=== PATIENT | female | born 1965 | race Caucasian/White ===

== ENCOUNTER 2021-03-26 01:36 | Observation (INO) | payer BC ==
[2021-03-26 02:13] LABS: #Basophils 0.1 thou/uL (0.0-0.2); #Eosinphils 0.3 thou/uL (0.0-0.7); #Monocytes 0.8 thou/uL (0.11-0.59); #Neutrophils 4.1 thou/uL (1.40-6.50); %Basophils 0.7 % (0.0-1.0); %Eosinophils 2.9 % (0.0-10.0); %Lymphocytes 43.4 % (21.0-51.0); %Monocytes 8.8 % (0.0-10.0); %Neutrophils 44.2 % (42.0-75.0); Hemoglobin 13.5 g/dL (12.0-16.0); Mean Corpuscular HGB CONC 34.9 g/dL (32.0-36.0); Mean Corpuscular Hemoglobin 30.7 pg (27.0-31.0); Mean Corpuscular Volume 87.9 fL (78.0-98.0); Mean Platelet Volume 8.1 fL (7.4-10.4); Platelet Count 324 thou/uL (130-400); Red Blood Cell (RBC) Count 4.41 mill/uL (4.20-5.40); White Blood Cell (WBC) Count 9.2 thou/uL (4.8-10.8)
[2021-03-26] MEDS ORDERED: Nitroglycerin 0.4 MG TAB 1 EACH ONE ×2 (02:23→02:35)
[2021-03-26 02:36] LABS: ALT (SGPT) 34 U/L (8-55); AST (SGOT) 34 U/L (5-34); Albumin 4.4 g/dL (3.5-5.0); Alkaline Phosphatase 94 U/L (40-110); Anion Gap 14 mmol/L (10-20); BUN (Urea Nitrogen) 14 mg/dL (9.8-20.1); Bilirubin, Total 0.3 mg/dL (0.2-1.2); Calc. Creatinine Clearance 0 mL/min (70-130); Calcium 9.8 mg/dL (7.8-10.44); Carbon Dioxide 23 mmol/L (22-29); Chloride 107 mmol/L (98-107); Globulin 3.5 g/dL (2.4-3.5); Glucose 86 mg/dL (70-105); Potassium 3.5 mmol/L (3.5-5.1); Protein, Total 7.9 g/dL (6.0-8.3); Sodium 140 mmol/L (136-145)
[2021-03-26] MEDS ORDERED: Nitroglycerin 2% Ointment 1 INCH/1 GM Packet ONE (03:38)
[2021-03-26] MEDS ORDERED: Fentanyl 100 MCG/2 ML VIAL ONE (03:38)
[2021-03-26] MEDS ORDERED: Acetaminophen 650 MG Suppository PR PRN (03:58)
[2021-03-26] MEDS ORDERED: Ondansetron ODT 4 MG TAB PO PRN (03:58)
[2021-03-26] MEDS ORDERED: Acetaminophen 325 MG TAB PO PRN (03:58)
[2021-03-26] MEDS ORDERED: Ondansetron PF 4 MG/2 ML Vial IVP PRN (03:58)
[2021-03-26] MEDS ORDERED: Enoxaparin Sodium 100 MG/ML SYRINGE SC SCH ×2 (04:15→09:00)
[2021-03-26] MEDS ORDERED: Dextrose 50% Abboject 50 ML SYRINGE SLOW IVP PRN (05:34)
[2021-03-26] MEDS ORDERED: HumaLOG 300 UNITS/3 ML VIAL SC PRN ×2 (05:34)
[2021-03-26] MEDS ORDERED: Dextrose 5% in Water 1,000 ML IV PRN (05:34)
[2021-03-26] MEDS ORDERED: Nitroglycerin 0.4 MG TAB (25 Tab Bottle) SL PRN (05:39)
[2021-03-26 05:47] LABS: Troponin I Less than 0.010 ng/mL (< 0.028)
[2021-03-26 07:46] VITALS: BMI 40.7
[2021-03-26 08:21] LABS: Troponin I Less than 0.010 ng/mL (< 0.028)
[2021-03-26] MEDS ORDERED: Aspirin Chewable 81 MG TAB PO SCH (09:00)
[2021-03-26] MEDS: Aspirin 81 mg Enteric Coated Tablet PO SCH (10:29)
[2021-03-26] MEDS: Clopidogrel Bisulfate 75 MG TAB PO SCH (10:30)
[2021-03-26] MEDS: Nitroglycerin 2% Ointment 1 INCH/1 GM Packet TOP SCH ×2 (12:13→21:26)
[2021-03-26 14:44] LABS: SARS-CoV-2 PCR by NAA Not Detected (NotDetected)
[2021-03-26] MEDS: Gabapentin 400 MG CAP PO SCH ×2 (14:46→21:26)
[2021-03-26] MEDS: Fentanyl 100 MCG/2 ML VIAL SLOW IVP PRN ×2 (16:34→21:27)
[2021-03-26] MEDS: Atorvastatin Calcium 40 MG TAB PO SCH ×2 (21:26→21:30)
[2021-03-26] MEDS: Escitalopram Oxalate 20 mg Tablet PO SCH (21:26)
[2021-03-26] MEDS: Furosemide 20 MG TAB PO SCH (21:26)
[2021-03-27 04:53] LABS: #Basophils 0.1 thou/uL (0.0-0.2); #Eosinphils 0.3 thou/uL (0.0-0.7); #Lymphocytes 3.1 thou/uL (1.20-3.40); #Monocytes 0.5 thou/uL (0.11-0.59); #Neutrophils 2.3 thou/uL (1.40-6.50); %Basophils 1.3 % (0.0-1.0); %Eosinophils 5.1 % (0.0-10.0); %Lymphocytes 49.6 % (21.0-51.0); %Monocytes 8.2 % (0.0-10.0); %Neutrophils 35.8 % (42.0-75.0); Hemoglobin 12.7 g/dL (12.0-16.0); Mean Corpuscular HGB CONC 32.4 g/dL (32.0-36.0); Mean Corpuscular Hemoglobin 29.4 pg (27.0-31.0); Mean Corpuscular Volume 90.6 fL (78.0-98.0); Mean Platelet Volume 8.3 fL (7.4-10.4); Platelet Count 314 thou/uL (130-400); RBC Distribution Width 12.2 % (11.5-14.5); Red Blood Cell (RBC) Count 4.31 mill/uL (4.20-5.40); White Blood Cell (WBC) Count 6.3 thou/uL (4.8-10.8)
[2021-03-27 05:15] LABS: Anion Gap 15 mmol/L (10-20); BUN (Urea Nitrogen) 16 mg/dL (9.8-20.1); Calc. Creatinine Clearance 126 mL/min (70-130); Calcium 9.5 mg/dL (7.8-10.44); Carbon Dioxide 21 mmol/L (22-29); Chloride 107 mmol/L (98-107); Glucose 272 mg/dL (70-105); Potassium 4.5 mmol/L (3.5-5.1); Sodium 138 mmol/L (136-145)
[2021-03-27] MEDS: Nitroglycerin 2% Ointment 1 INCH/1 GM Packet TOP SCH ×3 (05:34→21:33)
[2021-03-27] MEDS ORDERED: ADENOSINE 60 MG/20 ML VIAL ONE (09:02)
[2021-03-27] MEDS: Clopidogrel Bisulfate 75 MG TAB PO SCH (11:58)
[2021-03-27] MEDS: Furosemide 20 MG TAB PO SCH ×2 (11:58→21:33)
[2021-03-27] MEDS: Gabapentin 400 MG CAP PO SCH ×3 (11:58→21:32)
[2021-03-27] MEDS: Aspirin 81 mg Enteric Coated Tablet PO SCH (11:58)
[2021-03-27] MEDS: Carvedilol 3.125 MG TAB PO SCH (11:58)
[2021-03-27] MEDS: Fentanyl 100 MCG/2 ML VIAL SLOW IVP PRN ×2 (19:03→21:34)
[2021-03-27] MEDS: Escitalopram Oxalate 20 mg Tablet PO SCH (21:33)
[2021-03-27] MEDS: Atorvastatin Calcium 40 MG TAB PO SCH (21:44)
[2021-03-28] MEDS: Nitroglycerin 2% Ointment 1 INCH/1 GM Packet TOP SCH ×2 (03:03→11:39)
[2021-03-28 04:45] LABS: #Basophils 0.1 thou/uL (0.0-0.2); #Eosinphils 0.2 thou/uL (0.0-0.7); #Lymphocytes 3.2 thou/uL (1.20-3.40); #Monocytes 0.7 thou/uL (0.11-0.59); #Neutrophils 2.7 thou/uL (1.40-6.50); %Eosinophils 3.6 % (0.0-10.0); %Lymphocytes 46.2 % (21.0-51.0); %Monocytes 9.6 % (0.0-10.0); %Neutrophils 39.6 % (42.0-75.0); Mean Corpuscular HGB CONC 33.4 g/dL (32.0-36.0); Mean Corpuscular Hemoglobin 29.6 pg (27.0-31.0); Mean Corpuscular Volume 88.4 fL (78.0-98.0); Mean Platelet Volume 8.2 fL (7.4-10.4); Platelet Count 311 thou/uL (130-400); Red Blood Cell (RBC) Count 4.07 mill/uL (4.20-5.40); White Blood Cell (WBC) Count 6.9 thou/uL (4.8-10.8)
[2021-03-28 05:05] LABS: Anion Gap 14 mmol/L (10-20); BUN (Urea Nitrogen) 16 mg/dL (9.8-20.1); Calc. Creatinine Clearance 122 mL/min (70-130); Calcium 9.7 mg/dL (7.8-10.44); Carbon Dioxide 26 mmol/L (22-29); Chloride 102 mmol/L (98-107); Glucose 240 mg/dL (70-105); Potassium 3.8 mmol/L (3.5-5.1); Sodium 138 mmol/L (136-145)
[2021-03-28] MEDS ORDERED: Ezetimibe 10 MG TAB PO SCH (09:00)
[2021-03-28] MEDS: Furosemide 20 MG TAB PO SCH (09:24)
[2021-03-28] MEDS: Aspirin 81 mg Enteric Coated Tablet PO SCH (09:24)
[2021-03-28] MEDS: Carvedilol 3.125 MG TAB PO SCH (09:24)
[2021-03-28] MEDS: Gabapentin 400 MG CAP PO SCH ×2 (09:24→15:48)
[2021-03-28] MEDS: Clopidogrel Bisulfate 75 MG TAB PO SCH (10:01)
[2021-03-28] MEDS ORDERED: HumaLOG 300 UNITS/3 ML VIAL SC SCH (12:00)
[2021-03-28 15:33] VITALS: BP 145/75; TEMP 97.8
[2021-03-28] MEDS ORDERED: Atorvastatin Calcium 40 MG TAB PO SCH (21:00)
[2021-03-28] MEDS ORDERED: Lantus 1000 UNITS/10 ML VIAL SC SCH (21:00)
[2021-03-29] MEDS ORDERED: Lantus 1000 UNITS/10 ML VIAL SC SCH (09:00)
== END 2021-03-28 15:58 | disposition home or self-care (01) ==
LOC: ERS 01:36 → 2NO 03:30 → INTOOBSV 03:30
PROVIDERS: ADMIT Student in an Organized Health Care Education/Training Program; ATTEND Hospitalist
DX: R07.89 Other chest pain (principal); I25.10 Atherosclerotic heart disease of native coronary artery without angina pectoris; E11.9 Type 2 diabetes mellitus without complications; R06.02 Shortness of breath; I25.2 Old myocardial infarction; F15.11 Other stimulant abuse, in remission; I51.7 Cardiomegaly; M65.811 Other synovitis and tenosynovitis, right shoulder; E66.01 Morbid (severe) obesity due to excess calories; Z68.41 Body mass index [BMI] 40.0-44.9, adult; Z86.73 Personal history of transient ischemic attack (TIA), and cerebral infarction without residual deficits; Z87.891 Personal history of nicotine dependence; Z79.4 Long term (current) use of insulin; Z79.84 Long term (current) use of oral hypoglycemic drugs; Z79.82 Long term (current) use of aspirin; Z79.899 Other long term (current) drug therapy; Z88.0 Allergy status to penicillin; Z88.1 Allergy status to other antibiotic agents; Z88.2 Allergy status to sulfonamides; Z88.5 Allergy status to narcotic agent; Z88.8 Allergy status to other drugs, medicaments and biological substances; Z91.040 Latex allergy status; Z91.041 Radiographic dye allergy status; Z95.1 Presence of aortocoronary bypass graft; Z95.5 Presence of coronary angioplasty implant and graft; Z20.822 Contact with and (suspected) exposure to COVID-19
CPT/HCPCS: 36415; 36416; 71045; 78452; 80048; 80053; 83880; 84484; 85025; 93005; 93010; 93017; 96374; A9500; J0153; J1815; J3010; Q0162; U0003; U0005

== ENCOUNTER 2021-04-01 18:39 | Observation (INO) | payer BC ==
[2021-04-02 01:38] VITALS: BMI 41.3
[2021-04-02] MEDS ORDERED: Acetaminophen 325 MG TAB PO PRN (02:17)
[2021-04-02] MEDS ORDERED: Ondansetron PF 4 MG/2 ML Vial IVP PRN (02:17)
[2021-04-02] MEDS ORDERED: Nitroglycerin 0.4 MG TAB (25 Tab Bottle) SL PRN (02:17)
[2021-04-02] MEDS ORDERED: Dextrose 5% in Water 1,000 ML IV PRN (02:48)
[2021-04-02] MEDS ORDERED: HumaLOG 300 UNITS/3 ML VIAL SC PRN ×2 (02:48)
[2021-04-02] MEDS ORDERED: Dextrose 50% Abboject 50 ML SYRINGE SLOW IVP PRN (02:48)
[2021-04-02 05:42] LABS: #Basophils 0.1 thou/uL (0.0-0.2); #Eosinphils 0.3 thou/uL (0.0-0.7); #Lymphocytes 3.3 thou/uL (1.20-3.40); #Monocytes 0.6 thou/uL (0.11-0.59); #Neutrophils 2.8 thou/uL (1.40-6.50); %Basophils 1.4 % (0.0-1.0); %Eosinophils 3.5 % (0.0-10.0); %Monocytes 8.6 % (0.0-10.0); %Neutrophils 39.5 % (42.0-75.0); Hemoglobin 12.2 g/dL (12.0-16.0); Mean Corpuscular HGB CONC 33.6 g/dL (32.0-36.0); Mean Corpuscular Volume 89.3 fL (78.0-98.0); Mean Platelet Volume 8.1 fL (7.4-10.4); Platelet Count 291 thou/uL (130-400); RBC Distribution Width 12.1 % (11.5-14.5); Red Blood Cell (RBC) Count 4.05 mill/uL (4.20-5.40); White Blood Cell (WBC) Count 7.1 thou/uL (4.8-10.8)
[2021-04-02 06:05] LABS: Anion Gap 15 mmol/L (10-20); BUN (Urea Nitrogen) 19 mg/dL (9.8-20.1); Calc. Creatinine Clearance 122 mL/min (70-130); Calcium 9.4 mg/dL (7.8-10.44); Carbon Dioxide 24 mmol/L (22-29); Chloride 103 mmol/L (98-107); Glucose 154 mg/dL (70-105); Potassium 3.2 mmol/L (3.5-5.1); Sodium 139 mmol/L (136-145)
[2021-04-02 06:13] LABS: Troponin I 0.031 ng/mL (< 0.028)
[2021-04-02] MEDS ORDERED: Potassium Chloride 20 MEQ TAB PO SCH (08:00)
[2021-04-02] MEDS ORDERED: Ezetimibe 10 MG TAB PO SCH ×2 (09:00→09:30)
[2021-04-02] MEDS ORDERED: Clopidogrel Bisulfate 75 MG TAB PO SCH (09:00)
[2021-04-02] MEDS ORDERED: Enoxaparin Sodium 40 MG/0.4 ML SYRINGE SC SCH (09:00)
[2021-04-02] MEDS ORDERED: Furosemide 20 MG TAB PO SCH (09:00)
[2021-04-02] MEDS ORDERED: Carvedilol 3.125 MG TAB PO SCH (09:00)
[2021-04-02] MEDS ORDERED: Aspirin Chewable 81 MG TAB PO SCH (09:00)
[2021-04-02] MEDS: Furosemide 40 MG TAB PO SCH ×2 (09:03→15:58)
[2021-04-02] MEDS ORDERED: Gabapentin 400 MG CAP PO SCH ×2 (09:30→15:00)
[2021-04-02] MEDS ORDERED: Empagliflozin 25 MG TAB PO SCH (09:30)
[2021-04-02] MEDS ORDERED: HumaLOG 300 UNITS/3 ML VIAL SC SCH (11:30)
[2021-04-02 12:16] VITALS: BP 136/61; TEMP 98
[2021-04-02 13:53] LABS: Hemoglobin A1c 8.9 % (4.0-6.0)
[2021-04-02 14:00] LABS: Troponin I Less than 0.010 ng/mL (< 0.028)
[2021-04-02] MEDS ORDERED: metFORMIN 500 MG TAB PO SCH (17:00)
[2021-04-02] MEDS ORDERED: Escitalopram Oxalate 20 mg Tablet PO SCH (21:00)
[2021-04-02] MEDS ORDERED: Lantus 1000 UNITS/10 ML VIAL SC SCH (21:00)
[2021-04-03] MEDS ORDERED: Clopidogrel Bisulfate 75 MG TAB PO SCH (09:00)
[2021-04-03] MEDS ORDERED: Aspirin 81 mg Enteric Coated Tablet PO SCH (09:00)
[2021-04-03] MEDS ORDERED: Empagliflozin 25 MG TAB PO SCH (09:00)
[2021-04-03] MEDS ORDERED: Lantus 1000 UNITS/10 ML VIAL SC SCH (09:00)
== END 2021-04-02 16:40 | disposition home or self-care (01) ==
LOC: 2NO 18:39 → INTOOBSV 18:39
PROVIDERS: ADMIT Family Medicine; ATTEND Internal Medicine
DX: R07.89 Other chest pain (principal); I25.10 Atherosclerotic heart disease of native coronary artery without angina pectoris; I50.32 Chronic diastolic (congestive) heart failure; E11.9 Type 2 diabetes mellitus without complications; M06.9 Rheumatoid arthritis, unspecified; Z86.73 Personal history of transient ischemic attack (TIA), and cerebral infarction without residual deficits; Z87.891 Personal history of nicotine dependence; Z79.02 Long term (current) use of antithrombotics/antiplatelets; Z79.4 Long term (current) use of insulin; Z79.82 Long term (current) use of aspirin; Z79.84 Long term (current) use of oral hypoglycemic drugs; Z79.899 Other long term (current) drug therapy; Z88.0 Allergy status to penicillin; Z88.1 Allergy status to other antibiotic agents; Z88.2 Allergy status to sulfonamides; Z88.5 Allergy status to narcotic agent; Z91.040 Latex allergy status; Z91.041 Radiographic dye allergy status; Z95.5 Presence of coronary angioplasty implant and graft
CPT/HCPCS: 36415; 36416; 80048; 83036; 83880; 84484; 85025; 96372; G0378; J1650; J1815

== ENCOUNTER 2021-04-28 11:33 | Observation (INO) | payer OTHER, BC ==
[2021-04-29] MEDS ORDERED: hydrALAZINE 20 MG/ML VIAL SLOW IVP PRN (01:14)
[2021-04-29] MEDS ORDERED: Ondansetron PF 4 MG/2 ML Vial IVP PRN (01:14)
[2021-04-29] MEDS ORDERED: HYDROcodone/Acetaminophen 5/325 mg Tablet PO SCH (01:30)
[2021-04-29] MEDS ORDERED: Dextrose 50% Abboject 50 ML SYRINGE SLOW IVP PRN (01:39)
[2021-04-29] MEDS ORDERED: HumaLOG 300 UNITS/3 ML VIAL SC PRN (01:39)
[2021-04-29] MEDS ORDERED: Dextrose 5% in Water 1,000 ML IV PRN (01:39)
[2021-04-29] MEDS ORDERED: Aspirin 81 mg Enteric Coated Tablet PO SCH ×2 (02:00→09:00)
[2021-04-29 06:21] LABS: #Eosinphils 0.2 thou/uL (0.0-0.7); #Lymphocytes 3.1 thou/uL (1.20-3.40); #Monocytes 0.7 thou/uL (0.11-0.59); #Neutrophils 4.1 thou/uL (1.40-6.50); %Basophils 0.1 % (0.0-1.0); %Eosinophils 2.6 % (0.0-10.0); %Lymphocytes 37.9 % (21.0-51.0); %Monocytes 8.2 % (0.0-10.0); %Neutrophils 51.3 % (42.0-75.0); Hemoglobin 13.5 g/dL (12.0-16.0); Mean Corpuscular HGB CONC 33.7 g/dL (32.0-36.0); Mean Corpuscular Hemoglobin 30.2 pg (27.0-31.0); Mean Corpuscular Volume 89.5 fL (78.0-98.0); Mean Platelet Volume 8.6 fL (7.4-10.4); Platelet Count 259 thou/uL (130-400); RBC Distribution Width 12.4 % (11.5-14.5); Red Blood Cell (RBC) Count 4.46 mill/uL (4.20-5.40); White Blood Cell (WBC) Count 8.1 thou/uL (4.8-10.8)
[2021-04-29 06:42] LABS: Anion Gap 15 mmol/L (10-20); BUN (Urea Nitrogen) 24 mg/dL (9.8-20.1); Calc. Creatinine Clearance 0 mL/min (70-130); Calcium 10.1 mg/dL (7.8-10.44); Carbon Dioxide 26 mmol/L (22-29); Chloride 101 mmol/L (98-107); Cholesterol 238 mg/dl (< 200 Desired); Glucose 193 mg/dL (70-105); HDL Cholesterol 40 mg/dL (>60 Neg Risk); LDL Cholesterol, Calculated 154 mg/dL; Potassium 4.2 mmol/L (3.5-5.1); Sodium 138 mmol/L (136-145); Triglycerides 220 mg/dL (Less than 150)
[2021-04-29] MEDS: Carvedilol 3.125 MG TAB PO SCH (08:27)
[2021-04-29] MEDS: Acetaminophen 325 MG TAB PO PRN ×2 (08:28→16:11)
[2021-04-29] MEDS: Aspirin 81 mg Enteric Coated Tablet PO SCH (08:29)
[2021-04-29] MEDS: Enoxaparin Sodium 40 MG/0.4 ML SYRINGE SC SCH (08:30)
[2021-04-29] MEDS ORDERED: Lorazepam 2 MG/ML VIAL SLOW IVP SCH (08:45)
[2021-04-29] MEDS ORDERED: Clopidogrel Bisulfate 75 MG TAB PO SCH (09:00)
[2021-04-29] MEDS: Clopidogrel Bisulfate 75 MG TAB PO SCH (09:02)
[2021-04-29] MEDS ORDERED: Ketorolac Tromethamine 30 MG/ML VIAL IVP SCH (11:15)
[2021-04-29] MEDS: HumaLOG 300 UNITS/3 ML VIAL SC PRN (11:20)
[2021-04-29] MEDS ORDERED: traMADol HCl 50 MG TAB PO PRN (17:03)
[2021-04-29] MEDS ORDERED: traMADol HCl 50 MG TAB PO SCH (18:00)
[2021-04-29] MEDS: Gabapentin 400 MG CAP PO SCH (20:06)
[2021-04-29] MEDS ORDERED: Escitalopram Oxalate 20 mg Tablet PO SCH (21:00)
[2021-04-29] MEDS ORDERED: Cyproheptadine 4 MG TAB PO SCH (21:00)
[2021-04-29] MEDS ORDERED: Lantus 1000 UNITS/10 ML VIAL SC SCH (21:00)
[2021-04-30] MEDS ORDERED: Acetaminophen 500 MG TAB PO SCH (01:45)
[2021-04-30 06:08] LABS: #Basophils 0.1 thou/uL (0.0-0.2); #Eosinphils 0.3 thou/uL (0.0-0.7); #Lymphocytes 2.8 thou/uL (1.20-3.40); #Monocytes 0.9 thou/uL (0.11-0.59); %Basophils 0.7 % (0.0-1.0); %Eosinophils 2.7 % (0.0-10.0); %Lymphocytes 28.2 % (21.0-51.0); %Monocytes 8.6 % (0.0-10.0); %Neutrophils 59.8 % (42.0-75.0); Hemoglobin 13.7 g/dL (12.0-16.0); Mean Corpuscular HGB CONC 33.6 g/dL (32.0-36.0); Mean Corpuscular Hemoglobin 30.8 pg (27.0-31.0); Mean Corpuscular Volume 91.8 fL (78.0-98.0); Mean Platelet Volume 8.6 fL (7.4-10.4); Platelet Count 251 thou/uL (130-400); RBC Distribution Width 12.4 % (11.5-14.5); Red Blood Cell (RBC) Count 4.44 mill/uL (4.20-5.40)
[2021-04-30 06:38] LABS: Anion Gap 16 mmol/L (10-20); BUN (Urea Nitrogen) 29 mg/dL (9.8-20.1); Calc. Creatinine Clearance 126 mL/min (70-130); Calcium 9.5 mg/dL (7.8-10.44); Carbon Dioxide 21 mmol/L (22-29); Chloride 104 mmol/L (98-107); Glucose 201 mg/dL (70-105); Potassium 4.6 mmol/L (3.5-5.1); Sodium 136 mmol/L (136-145)
[2021-04-30] MEDS ORDERED: HumaLOG 300 UNITS/3 ML VIAL SC SCH (07:30)
[2021-04-30] MEDS ORDERED: metFORMIN 500 MG TAB PO SCH (08:00)
[2021-04-30] MEDS: Aspirin 81 mg Enteric Coated Tablet PO SCH (08:51)
[2021-04-30] MEDS: Carvedilol 3.125 MG TAB PO SCH (08:51)
[2021-04-30] MEDS: Enoxaparin Sodium 40 MG/0.4 ML SYRINGE SC SCH (08:52)
[2021-04-30] MEDS: Clopidogrel Bisulfate 75 MG TAB PO SCH (08:52)
[2021-04-30] MEDS: Furosemide 40 MG TAB PO SCH ×2 (08:52→12:54)
[2021-04-30] MEDS: Gabapentin 400 MG CAP PO SCH ×2 (08:55→14:36)
[2021-04-30] MEDS: Acetaminophen 325 MG TAB PO PRN ×2 (08:57→14:41)
[2021-04-30] MEDS ORDERED: Lantus 1000 UNITS/10 ML VIAL SC SCH (09:00)
[2021-04-30 12:02] VITALS: BP 139/63; TEMP 98.1
[2021-04-30] MEDS: HumaLOG 300 UNITS/3 ML VIAL SC PRN (12:53)
== END 2021-04-30 16:15 | disposition home or self-care (01) ==
LOC: NEURO 11:33
PROVIDERS: ADMIT Internal Medicine; ATTEND Family Medicine
DX: R26.0 Ataxic gait (principal); M06.9 Rheumatoid arthritis, unspecified; I25.10 Atherosclerotic heart disease of native coronary artery without angina pectoris; I11.0 Hypertensive heart disease with heart failure; I50.32 Chronic diastolic (congestive) heart failure; R51.9 Headache, unspecified; R11.2 Nausea with vomiting, unspecified; R42 Dizziness and giddiness; E11.42 Type 2 diabetes mellitus with diabetic polyneuropathy; I08.1 Rheumatic disorders of both mitral and tricuspid valves; E78.1 Pure hyperglyceridemia; Z86.73 Personal history of transient ischemic attack (TIA), and cerebral infarction without residual deficits; Z87.891 Personal history of nicotine dependence; Z79.4 Long term (current) use of insulin; Z79.84 Long term (current) use of oral hypoglycemic drugs; Z79.82 Long term (current) use of aspirin; Z79.02 Long term (current) use of antithrombotics/antiplatelets; Z79.899 Other long term (current) drug therapy; Z88.0 Allergy status to penicillin; Z88.1 Allergy status to other antibiotic agents; Z88.2 Allergy status to sulfonamides; Z88.5 Allergy status to narcotic agent; Z91.040 Latex allergy status; Z91.041 Radiographic dye allergy status; Z95.5 Presence of coronary angioplasty implant and graft; Z98.1 Arthrodesis status; W01.198A Fall on same level from slipping, tripping and stumbling with subsequent striking against other object, initial encounter
CPT/HCPCS: 36415; 36416; 70450; 70551; 80048; 80061; 85025; 90471; 90732; 93306; 93880; 96372; 96374; 96375; G0009; G0378; J1650; J1815; J1885; J2060; J2405

== ENCOUNTER 2021-05-09 01:49 | Observation (INO) | payer BC ==
[2021-05-09 02:41] LABS: #Basophils 0.1 thou/uL (0.0-0.2); #Eosinphils 0.2 thou/uL (0.0-0.7); #Lymphocytes 4.2 thou/uL (1.20-3.40); #Monocytes 0.9 thou/uL (0.11-0.59); #Neutrophils 4.8 thou/uL (1.40-6.50); %Basophils 1.1 % (0.0-1.0); %Eosinophils 2.1 % (0.0-10.0); %Lymphocytes 41.1 % (21.0-51.0); %Monocytes 8.8 % (0.0-10.0); Hemoglobin 12.8 g/dL (12.0-16.0); Mean Corpuscular HGB CONC 32.9 g/dL (32.0-36.0); Mean Corpuscular Hemoglobin 29.5 pg (27.0-31.0); Mean Corpuscular Volume 89.6 fL (78.0-98.0); Platelet Count 324 thou/uL (130-400); RBC Distribution Width 12.5 % (11.5-14.5); Red Blood Cell (RBC) Count 4.34 mill/uL (4.20-5.40); White Blood Cell (WBC) Count 10.1 thou/uL (4.8-10.8)
[2021-05-09 03:01] LABS: ALT (SGPT) 34 U/L (8-55); AST (SGOT) 18 U/L (5-34); Albumin 4.2 g/dL (3.5-5.0); Alkaline Phosphatase 106 U/L (40-110); Anion Gap 16 mmol/L (10-20); BUN (Urea Nitrogen) 16 mg/dL (9.8-20.1); Calc. Creatinine Clearance 0 mL/min (70-130); Calcium 9.3 mg/dL (7.8-10.44); Carbon Dioxide 19 mmol/L (22-29); Chloride 107 mmol/L (98-107); Globulin 3.1 g/dL (2.4-3.5); Glucose 180 mg/dL (70-105); Potassium 3.7 mmol/L (3.5-5.1); Protein, Total 7.3 g/dL (6.0-8.3); Sodium 138 mmol/L (136-145)
[2021-05-09 03:12] LABS: Bilirubin, Total 0.2 mg/dL (0.2-1.2)
[2021-05-09] MEDS ORDERED: Ondansetron ODT 4 MG TAB PO PRN (04:45)
[2021-05-09] MEDS ORDERED: Dextrose 5% in Water 1,000 ML IV PRN (04:45)
[2021-05-09] MEDS ORDERED: Acetaminophen 650 MG Suppository PR PRN (04:45)
[2021-05-09] MEDS ORDERED: Dextrose 50% Abboject 50 ML SYRINGE SLOW IVP PRN (04:45)
[2021-05-09] MEDS ORDERED: Acetaminophen 325 MG TAB PO PRN (04:45)
[2021-05-09] MEDS ORDERED: HumaLOG 300 UNITS/3 ML VIAL SC PRN ×2 (04:45)
[2021-05-09] MEDS ORDERED: Fentanyl 100 MCG/2 ML VIAL SLOW IVP PRN (04:50)
[2021-05-09] MEDS ORDERED: Ondansetron PF 4 MG/2 ML Vial ONE ×2 (05:09→14:08)
[2021-05-09] MEDS ORDERED: Fentanyl 100 MCG/2 ML VIAL ONE ×2 (05:09→14:08)
[2021-05-09] MEDS: Ondansetron PF 4 MG/2 ML Vial IVP PRN ×2 (05:22→14:11)
[2021-05-09 06:25] LABS: Troponin I Less than 0.010 ng/mL (< 0.028)
[2021-05-09 07:04] LABS: SARS-CoV-2 NAA Rapid Test Not Detected (NotDetected)
[2021-05-09] MEDS ORDERED: Enoxaparin Sodium 40 MG/0.4 ML SYRINGE ONE (07:58)
[2021-05-09] MEDS ORDERED: Aspirin Chewable 81 MG TAB ONE (07:58)
[2021-05-09] MEDS ORDERED: Nitroglycerin 0.4 MG TAB 1 EACH ONE ×2 (07:58→08:00)
[2021-05-09] MEDS: Aspirin Chewable 81 MG TAB PO SCH (08:01)
[2021-05-09] MEDS: Nitroglycerin 0.4 MG TAB (25 Tab Bottle) SL PRN ×3 (08:02→11:30)
[2021-05-09] MEDS: Enoxaparin Sodium 40 MG/0.4 ML SYRINGE SC SCH (08:06)
[2021-05-09 10:47] LABS: Magnesium 1.9 mg/dL (1.6-2.6)
[2021-05-09 10:53] LABS: Troponin I Less than 0.010 ng/mL (< 0.028)
[2021-05-09] MEDS: Nitroglycerin 2% Ointment 1 INCH/1 GM Packet TOP SCH ×2 (11:30→21:40)
[2021-05-09] MEDS ORDERED: Acetaminophen 500 MG TAB ONE ×2 (11:42→12:47)
[2021-05-09] MEDS ORDERED: Nitroglycerin 2% Ointment 1 INCH/1 GM Packet ONE (11:42)
[2021-05-09] MEDS ORDERED: Acetaminophen 500 MG TAB PO SCH (11:45)
[2021-05-09] MEDS ORDERED: Carvedilol 3.125 MG TAB PO SCH (12:00)
[2021-05-09] MEDS ORDERED: Clopidogrel Bisulfate 75 MG TAB PO SCH (12:00)
[2021-05-09] MEDS ORDERED: Sodium Chloride 0.9% 1,000 ML IV SCH (12:15)
[2021-05-09] MEDS ORDERED: Clopidogrel Bisulfate 75 MG TAB ONE (12:47)
[2021-05-09] MEDS: Fentanyl 100 MCG/2 ML VIAL SLOW IVP PRN ×2 (14:15→20:43)
[2021-05-09 15:25] LABS: CKMB 0.5 ng/mL (0-6.6); Troponin I Less than 0.010 ng/mL (< 0.028)
[2021-05-09] MEDS ORDERED: Furosemide 20 MG/2 ML VIAL SLOW IVP SCH (15:30)
[2021-05-09] MEDS ORDERED: Furosemide 20 MG/2 ML VIAL ONE (15:32)
[2021-05-09 17:13] LABS: CKMB 0.5 ng/mL (0-6.6); Troponin I Less than 0.010 ng/mL (< 0.028)
[2021-05-09 17:18] VITALS: BMI 40.0
[2021-05-09] MEDS: Carvedilol 3.125 MG TAB PO SCH (18:57)
[2021-05-09] MEDS: Gabapentin 400 MG CAP PO SCH ×2 (19:00→20:39)
[2021-05-09 19:25] LABS: CKMB 0.5 ng/mL (0-6.6); Troponin I Less than 0.010 ng/mL (< 0.028)
[2021-05-09] MEDS ORDERED: Escitalopram Oxalate 20 mg Tablet PO SCH (21:00)
[2021-05-10 02:18] LABS: Bilirubin Negative (Negative); Blood, Urine Negative (Negative); Glucose, Urine (Dipstick) >=1000 mg/dL (Negative); Ketone, Urine Negative (Negative); Leukocyte Negative (Negative); Nitrite Negative (Negative); Protein, Urine (Dipstick) Negative (Neg-Trace); Specific Gravity, Urine 1.015 (1.005-1.030); Urobilinogen 0.2 mg/dL (Less than 2)
[2021-05-10 02:19] LABS: Clarity Clear (Clear)
[2021-05-10] MEDS: Nitroglycerin 2% Ointment 1 INCH/1 GM Packet TOP SCH (05:53)
[2021-05-10 07:03] LABS: #Eosinphils 0.3 thou/uL (0.0-0.7); #Lymphocytes 3.8 thou/uL (1.20-3.40); #Monocytes 0.7 thou/uL (0.11-0.59); #Neutrophils 4.1 thou/uL (1.40-6.50); %Basophils 0.5 % (0.0-1.0); %Lymphocytes 42.7 % (21.0-51.0); %Monocytes 7.7 % (0.0-10.0); %Neutrophils 46.2 % (42.0-75.0); Hemoglobin 13.2 g/dL (12.0-16.0); Mean Corpuscular HGB CONC 32.2 g/dL (32.0-36.0); Mean Corpuscular Hemoglobin 28.9 pg (27.0-31.0); Mean Corpuscular Volume 89.9 fL (78.0-98.0); Mean Platelet Volume 8.2 fL (7.4-10.4); Platelet Count 334 thou/uL (130-400); RBC Distribution Width 12.4 % (11.5-14.5); Red Blood Cell (RBC) Count 4.56 mill/uL (4.20-5.40); White Blood Cell (WBC) Count 8.9 thou/uL (4.8-10.8)
[2021-05-10 07:15] LABS: Anion Gap 20 mmol/L (10-20); BUN (Urea Nitrogen) 18 mg/dL (9.8-20.1); Calc. Creatinine Clearance 134 mL/min (70-130); Calcium 9.6 mg/dL (7.8-10.44); Carbon Dioxide 20 mmol/L (22-29); Chloride 106 mmol/L (98-107); Glucose 139 mg/dL (70-105); Potassium 4.3 mmol/L (3.5-5.1); Sodium 142 mmol/L (136-145)
[2021-05-10] MEDS ORDERED: Spironolactone 25 MG TAB PO SCH (08:00)
[2021-05-10 08:28] LABS: Band 4 % (5-11); Eosinophils 1 % (0-10); Lymphocytes 42 % (21-51); MDiff Complete? YES; Monocytes 2 % (0-10); Neutrophil 43 % (42-75); RBC Morphology Normal; Reactive Lymphocytes 8 % (0-10)
[2021-05-10] MEDS ORDERED: Ezetimibe 10 MG TAB PO SCH (09:00)
[2021-05-10] MEDS ORDERED: Furosemide 40 MG/4 ML VIAL SLOW IVP SCH (09:00)
[2021-05-10] MEDS ORDERED: Pregabalin 25 MG CAP PO SCH (09:00)
[2021-05-10] MEDS ORDERED: Clopidogrel Bisulfate 75 MG TAB PO SCH (09:00)
[2021-05-10] MEDS: Aspirin Chewable 81 MG TAB PO SCH (10:09)
[2021-05-10] MEDS: Gabapentin 400 MG CAP PO SCH (10:09)
[2021-05-10] MEDS: Carvedilol 3.125 MG TAB PO SCH (10:11)
[2021-05-10] MEDS: Enoxaparin Sodium 40 MG/0.4 ML SYRINGE SC SCH (10:11)
[2021-05-10 11:26] VITALS: TEMP 98.3
[2021-05-10 13:13] VITALS: BP 147/68
== END 2021-05-10 13:25 | disposition home or self-care (01) ==
LOC: ERS 01:49 → ERHOLD 03:30 → 2NO 17:16
PROVIDERS: ADMIT Student in an Organized Health Care Education/Training Program; ATTEND Internal Medicine
DX: R07.89 Other chest pain (principal); I25.10 Atherosclerotic heart disease of native coronary artery without angina pectoris; I25.82 Chronic total occlusion of coronary artery; I13.0 Hypertensive heart and chronic kidney disease with heart failure and stage 1 through stage 4 chronic kidney disease, or unspecified chronic kidney disease; E11.22 Type 2 diabetes mellitus with diabetic chronic kidney disease; N18.9 Chronic kidney disease, unspecified; I50.33 Acute on chronic diastolic (congestive) heart failure; E78.2 Mixed hyperlipidemia; R10.31 Right lower quadrant pain; M06.9 Rheumatoid arthritis, unspecified; J44.9 Chronic obstructive pulmonary disease, unspecified; I25.2 Old myocardial infarction; T82.855A Stenosis of coronary artery stent, initial encounter; G47.33 Obstructive sleep apnea (adult) (pediatric); Z86.73 Personal history of transient ischemic attack (TIA), and cerebral infarction without residual deficits; Z87.891 Personal history of nicotine dependence; Z79.02 Long term (current) use of antithrombotics/antiplatelets; Z79.4 Long term (current) use of insulin; Z79.82 Long term (current) use of aspirin; Z79.84 Long term (current) use of oral hypoglycemic drugs; Z79.899 Other long term (current) drug therapy; Z88.0 Allergy status to penicillin; Z88.1 Allergy status to other antibiotic agents; Z88.2 Allergy status to sulfonamides; Z88.5 Allergy status to narcotic agent; Z91.040 Latex allergy status; Z91.041 Radiographic dye allergy status; Z95.1 Presence of aortocoronary bypass graft; Z95.5 Presence of coronary angioplasty implant and graft; Z20.822 Contact with and (suspected) exposure to COVID-19; Y71.1 Therapeutic (nonsurgical) and rehabilitative cardiovascular devices associated with adverse incidents
CPT/HCPCS: 36415; 36416; 71045; 74176; 80048; 80053; 81001; 82553; 83690; 83735; 83880; 84484; 85025; 93005; 93798; 96375; 96376; G0378; J1650; J1940; J2405; J3010; J7050; U0002

== ENCOUNTER 2021-06-04 12:15 | Inpatient (IN) | payer BC ==
[~2021-06-04 12:15] MED LIST: Iopamidol 370 76% 100 ML VIAL ONE
[2021-06-04] MEDS ORDERED: Acetaminophen 500 MG TAB ONE (13:51)
[2021-06-04] MEDS ORDERED: traMADol HCl 50 MG TAB ONE (15:40)
[2021-06-04] MEDS ORDERED: hydrALAZINE 20 MG/ML VIAL SLOW IVP PRN (15:41)
[2021-06-04] MEDS ORDERED: Ondansetron PF 4 MG/2 ML Vial IVP PRN (15:41)
[2021-06-04] MEDS ORDERED: Acetaminophen 650 MG Suppository PR PRN (15:41)
[2021-06-04] MEDS ORDERED: Ondansetron ODT 4 MG TAB PO PRN (15:41)
[2021-06-04] MEDS ORDERED: Lorazepam 2 MG/ML VIAL SLOW IVP PRN (15:48)
[2021-06-04] MEDS ORDERED: Dextrose 50% Abboject 50 ML SYRINGE IVP PRN (16:15)
[2021-06-04] MEDS ORDERED: Dextrose 5% in Water 1,000 ML IV PRN ×2 (16:15→16:16)
[2021-06-04] MEDS ORDERED: Aspirin 81 mg Enteric Coated Tablet PO SCH (16:15)
[2021-06-04] MEDS ORDERED: Clopidogrel Bisulfate 75 MG TAB PO SCH (16:15)
[2021-06-04 17:04] VITALS: BMI 40.5
[2021-06-04] MEDS: traMADol HCl 50 MG TAB PO PRN ×2 (17:25→23:39)
[2021-06-04] MEDS: Insulin Regular 300 UNITS/3 ML VIAL SC PRN ×2 (17:26→23:38)
[2021-06-04] MEDS: Gabapentin 400 MG CAP PO SCH (21:08)
[2021-06-04] MEDS: Lantus 1000 UNITS/10 ML VIAL SC SCH (21:09)
[2021-06-04] MEDS: Cyproheptadine 4 MG TAB PO SCH (21:09)
[2021-06-04] MEDS: Furosemide 40 MG TAB PO SCH (21:09)
[2021-06-04] MEDS: Escitalopram Oxalate 20 mg Tablet PO SCH (21:09)
[2021-06-04] MEDS ORDERED: Carvedilol 3.125 MG TAB PO SCH (22:00)
[2021-06-04] MEDS ORDERED: Amiodarone 200 MG TAB PO SCH (22:00)
[2021-06-05 05:24] LABS: #Lymphocytes 1.8 thou/uL (1.20-3.40); #Monocytes 0.3 thou/uL (0.11-0.59); #Neutrophils 11.1 thou/uL (1.40-6.50); %Basophils 0.1 % (0.0-1.0); %Lymphocytes 13.4 % (21.0-51.0); %Monocytes 2.4 % (0.0-10.0); %Neutrophils 84.1 % (42.0-75.0); Hemoglobin 13.9 g/dL (12.0-16.0); Mean Corpuscular HGB CONC 33.9 g/dL (32.0-36.0); Mean Corpuscular Hemoglobin 30.8 pg (27.0-31.0); Mean Platelet Volume 8.7 fL (7.4-10.4); Platelet Count 345 thou/uL (130-400); RBC Distribution Width 11.9 % (11.5-14.5); White Blood Cell (WBC) Count 13.2 thou/uL (4.8-10.8)
[2021-06-05] MEDS: traMADol HCl 50 MG TAB PO PRN (05:36)
[2021-06-05 05:40] LABS: Anion Gap 20 mmol/L (10-20); BUN (Urea Nitrogen) 24 mg/dL (9.8-20.1); Calc. Creatinine Clearance 86 mL/min (70-130); Calcium 9.7 mg/dL (7.8-10.44); Carbon Dioxide 22 mmol/L (22-29); Cardiac Risk 5.5 (Less than 4.5); Chloride 100 mmol/L (98-107); Cholesterol 209 mg/dl (< 200 Desired); Glucose 340 mg/dL (70-105); HDL Cholesterol 38 mg/dL (>60 Neg Risk); LDL Cholesterol, Calculated 151 mg/dL; Potassium 4.1 mmol/L (3.5-5.1); Sodium 138 mmol/L (136-145); Triglycerides 102 mg/dL (Less than 150)
[2021-06-05] MEDS: Insulin Regular 300 UNITS/3 ML VIAL SC PRN ×4 (05:40→20:55)
[2021-06-05] MEDS: Gabapentin 400 MG CAP PO SCH ×3 (09:02→20:53)
[2021-06-05] MEDS: Enoxaparin Sodium 40 MG/0.4 ML SYRINGE SC SCH ×2 (09:04→09:26)
[2021-06-05] MEDS: Furosemide 40 MG TAB PO SCH ×2 (09:04→20:53)
[2021-06-05] MEDS: Clopidogrel Bisulfate 75 MG TAB PO SCH (09:04)
[2021-06-05] MEDS: Aspirin 81 mg Enteric Coated Tablet PO SCH (09:05)
[2021-06-05] MEDS: Amiodarone 200 MG TAB PO SCH ×2 (09:05→20:53)
[2021-06-05] MEDS: Carvedilol 3.125 MG TAB PO SCH ×2 (09:06→20:54)
[2021-06-05] MEDS: Lantus 1000 UNITS/10 ML VIAL SC SCH ×2 (09:07→20:54)
[2021-06-05] MEDS: HumaLOG 300 UNITS/3 ML VIAL SC SCH (17:07)
[2021-06-05] MEDS: Fioricet 325/50/40 mg Tablet PO PRN (18:29)
[2021-06-05] MEDS: Cyproheptadine 4 MG TAB PO SCH (20:52)
[2021-06-05] MEDS: Escitalopram Oxalate 20 mg Tablet PO SCH (20:54)
[2021-06-06 05:57] LABS: #Basophils 0.1 thou/uL (0.0-0.2); #Eosinphils 0.1 thou/uL (0.0-0.7); #Lymphocytes 4.8 thou/uL (1.20-3.40); #Monocytes 1.1 thou/uL (0.11-0.59); #Neutrophils 7.1 thou/uL (1.40-6.50); %Basophils 0.7 % (0.0-1.0); %Lymphocytes 36.4 % (21.0-51.0); %Monocytes 8.3 % (0.0-10.0); %Neutrophils 53.6 % (42.0-75.0); Hemoglobin 13.9 g/dL (12.0-16.0); Mean Corpuscular HGB CONC 33.7 g/dL (32.0-36.0); Mean Corpuscular Hemoglobin 30.9 pg (27.0-31.0); Mean Corpuscular Volume 91.7 fL (78.0-98.0); Mean Platelet Volume 8.6 fL (7.4-10.4); Platelet Count 278 thou/uL (130-400); RBC Distribution Width 12.1 % (11.5-14.5); Red Blood Cell (RBC) Count 4.49 mill/uL (4.20-5.40); White Blood Cell (WBC) Count 13.1 thou/uL (4.8-10.8)
[2021-06-06 06:05] LABS: Hemoglobin A1c 7.4 % (4.0-6.0)
[2021-06-06 06:21] LABS: Anion Gap 17 mmol/L (10-20); BUN (Urea Nitrogen) 28 mg/dL (9.8-20.1); Calc. Creatinine Clearance 98 mL/min (70-130); Calcium 9.2 mg/dL (7.8-10.44); Carbon Dioxide 23 mmol/L (22-29); Chloride 101 mmol/L (98-107); Glucose 152 mg/dL (70-105); Potassium 3.8 mmol/L (3.5-5.1); Sodium 137 mmol/L (136-145)
[2021-06-06] MEDS: Lantus 1000 UNITS/10 ML VIAL SC SCH (09:15)
[2021-06-06] MEDS: Furosemide 40 MG TAB PO SCH ×2 (09:17→21:47)
[2021-06-06] MEDS: Aspirin 81 mg Enteric Coated Tablet PO SCH (09:17)
[2021-06-06] MEDS: Clopidogrel Bisulfate 75 MG TAB PO SCH (09:17)
[2021-06-06] MEDS: Gabapentin 400 MG CAP PO SCH ×3 (09:17→21:46)
[2021-06-06] MEDS: Amiodarone 200 MG TAB PO SCH ×2 (09:18→21:48)
[2021-06-06] MEDS: Carvedilol 3.125 MG TAB PO SCH ×2 (09:19→21:47)
[2021-06-06] MEDS: Enoxaparin Sodium 40 MG/0.4 ML SYRINGE SC SCH (09:19)
[2021-06-06] MEDS: HumaLOG 300 UNITS/3 ML VIAL SC SCH ×3 (09:26→17:41)
[2021-06-06] MEDS: Insulin Regular 300 UNITS/3 ML VIAL SC PRN ×2 (11:41→17:41)
[2021-06-06] MEDS: Acetaminophen 325 MG TAB PO PRN ×2 (11:57→20:43)
[2021-06-06] MEDS: Fioricet 325/50/40 mg Tablet PO PRN ×2 (15:01→22:33)
[2021-06-06] MEDS ORDERED: Lantus 1000 UNITS/10 ML VIAL SC SCH (21:00)
[2021-06-06] MEDS: Escitalopram Oxalate 20 mg Tablet PO SCH (21:47)
[2021-06-06] MEDS: Cyproheptadine 4 MG TAB PO SCH (21:47)
[2021-06-07 04:50] LABS: #Basophils 0.1 thou/uL (0.0-0.2); #Eosinphils 0.2 thou/uL (0.0-0.7); #Lymphocytes 4.3 thou/uL (1.20-3.40); #Monocytes 0.7 thou/uL (0.11-0.59); #Neutrophils 3.6 thou/uL (1.40-6.50); %Eosinophils 2.6 % (0.0-10.0); %Lymphocytes 48.3 % (21.0-51.0); %Monocytes 8.3 % (0.0-10.0); %Neutrophils 39.9 % (42.0-75.0); Hemoglobin 13.9 g/dL (12.0-16.0); Mean Corpuscular HGB CONC 33.1 g/dL (32.0-36.0); Mean Corpuscular Hemoglobin 30.3 pg (27.0-31.0); Mean Corpuscular Volume 91.5 fL (78.0-98.0); Mean Platelet Volume 8.6 fL (7.4-10.4); Platelet Count 260 thou/uL (130-400); RBC Distribution Width 11.9 % (11.5-14.5); Red Blood Cell (RBC) Count 4.59 mill/uL (4.20-5.40)
[2021-06-07 05:34] LABS: Anion Gap 16 mmol/L (10-20); BUN (Urea Nitrogen) 22 mg/dL (9.8-20.1); Calc. Creatinine Clearance 102 mL/min (70-130); Calcium 8.9 mg/dL (7.8-10.44); Carbon Dioxide 25 mmol/L (22-29); Chloride 102 mmol/L (98-107); Glucose 181 mg/dL (70-105); Potassium 3.7 mmol/L (3.5-5.1); Sodium 139 mmol/L (136-145)
[2021-06-07] MEDS: Insulin Regular 300 UNITS/3 ML VIAL SC PRN ×2 (06:48→18:31)
[2021-06-07] MEDS: HumaLOG 300 UNITS/3 ML VIAL SC SCH ×3 (08:55→18:32)
[2021-06-07] MEDS: Gabapentin 400 MG CAP PO SCH ×3 (08:56→20:47)
[2021-06-07] MEDS: Aspirin 81 mg Enteric Coated Tablet PO SCH (08:57)
[2021-06-07] MEDS: Enoxaparin Sodium 40 MG/0.4 ML SYRINGE SC SCH (08:57)
[2021-06-07] MEDS: Furosemide 40 MG TAB PO SCH ×2 (08:57→20:47)
[2021-06-07] MEDS: Carvedilol 3.125 MG TAB PO SCH ×2 (08:57→20:47)
[2021-06-07] MEDS: Amiodarone 200 MG TAB PO SCH ×2 (08:57→20:47)
[2021-06-07] MEDS: Clopidogrel Bisulfate 75 MG TAB PO SCH (08:57)
[2021-06-07] MEDS: Acetaminophen 325 MG TAB PO PRN (09:50)
[2021-06-07] MEDS: Ubidecarenone 50 MG CAP PO SCH (12:40)
[2021-06-07] MEDS: Fioricet 325/50/40 mg Tablet PO PRN (13:53)
[2021-06-07] MEDS: traMADol HCl 50 MG TAB PO PRN (20:46)
[2021-06-07] MEDS: Escitalopram Oxalate 20 mg Tablet PO SCH (20:47)
[2021-06-07] MEDS: Cyproheptadine 4 MG TAB PO SCH (20:48)
[2021-06-07] MEDS: Docusate 100 MG CAP PO SCH (22:32)
[2021-06-07] MEDS: Lantus 1000 UNITS/10 ML VIAL SC SCH (22:32)
[2021-06-08] MEDS: Fioricet 325/50/40 mg Tablet PO PRN ×2 (00:07→14:37)
[2021-06-08 05:38] LABS: #Basophils 0.1 thou/uL (0.0-0.2); #Eosinphils 0.2 thou/uL (0.0-0.7); #Lymphocytes 3.9 thou/uL (1.20-3.40); #Monocytes 0.8 thou/uL (0.11-0.59); #Neutrophils 4.5 thou/uL (1.40-6.50); %Basophils 0.8 % (0.0-1.0); %Eosinophils 2.5 % (0.0-10.0); %Neutrophils 47.6 % (42.0-75.0); Hemoglobin 13.7 g/dL (12.0-16.0); Mean Corpuscular HGB CONC 31.8 g/dL (32.0-36.0); Mean Corpuscular Hemoglobin 29.4 pg (27.0-31.0); Mean Corpuscular Volume 92.5 fL (78.0-98.0); Mean Platelet Volume 8.4 fL (7.4-10.4); Platelet Count 299 thou/uL (130-400); RBC Distribution Width 11.9 % (11.5-14.5); Red Blood Cell (RBC) Count 4.66 mill/uL (4.20-5.40); White Blood Cell (WBC) Count 9.5 thou/uL (4.8-10.8)
[2021-06-08 06:04] LABS: Anion Gap 15 mmol/L (10-20); BUN (Urea Nitrogen) 18 mg/dL (9.8-20.1); Calc. Creatinine Clearance 112 mL/min (70-130); Calcium 9.1 mg/dL (7.8-10.44); Carbon Dioxide 26 mmol/L (22-29); Chloride 100 mmol/L (98-107); Glucose 132 mg/dL (70-105); Potassium 3.7 mmol/L (3.5-5.1); Sodium 137 mmol/L (136-145)
[2021-06-08] MEDS: HumaLOG 300 UNITS/3 ML VIAL SC SCH ×3 (09:01→17:18)
[2021-06-08] MEDS: Ubidecarenone 50 MG CAP PO SCH (09:02)
[2021-06-08] MEDS: Gabapentin 400 MG CAP PO SCH ×3 (09:02→20:54)
[2021-06-08] MEDS: Aspirin 81 mg Enteric Coated Tablet PO SCH (09:02)
[2021-06-08] MEDS: Amiodarone 200 MG TAB PO SCH ×2 (09:03→20:55)
[2021-06-08] MEDS: Furosemide 40 MG TAB PO SCH ×2 (09:03→20:55)
[2021-06-08] MEDS: Docusate 100 MG CAP PO SCH ×2 (09:03→20:55)
[2021-06-08] MEDS: Carvedilol 3.125 MG TAB PO SCH ×3 (09:03→20:55)
[2021-06-08] MEDS: Enoxaparin Sodium 40 MG/0.4 ML SYRINGE SC SCH (09:03)
[2021-06-08] MEDS: Clopidogrel Bisulfate 75 MG TAB PO SCH (09:03)
[2021-06-08] MEDS: Insulin Regular 300 UNITS/3 ML VIAL SC PRN ×2 (12:17→21:06)
[2021-06-08] MEDS: traMADol HCl 50 MG TAB PO PRN (20:53)
[2021-06-08] MEDS: Escitalopram Oxalate 20 mg Tablet PO SCH (20:55)
[2021-06-08] MEDS: Lantus 1000 UNITS/10 ML VIAL SC SCH (21:05)
[2021-06-08] MEDS: Cyproheptadine 4 MG TAB PO SCH (21:34)
[2021-06-09] MEDS: Fioricet 325/50/40 mg Tablet PO PRN ×4 (00:12→22:03)
[2021-06-09 05:08] LABS: #Basophils 0.1 thou/uL (0.0-0.2); #Eosinphils 0.2 thou/uL (0.0-0.7); #Monocytes 0.7 thou/uL (0.11-0.59); #Neutrophils 4.3 thou/uL (1.40-6.50); %Eosinophils 2.1 % (0.0-10.0); %Lymphocytes 43.3 % (21.0-51.0); %Monocytes 7.5 % (0.0-10.0); %Neutrophils 46.1 % (42.0-75.0); Hemoglobin 14.3 g/dL (12.0-16.0); Mean Corpuscular HGB CONC 32.9 g/dL (32.0-36.0); Mean Corpuscular Hemoglobin 30.2 pg (27.0-31.0); Platelet Count 319 thou/uL (130-400); RBC Distribution Width 11.8 % (11.5-14.5); Red Blood Cell (RBC) Count 4.72 mill/uL (4.20-5.40); White Blood Cell (WBC) Count 9.3 thou/uL (4.8-10.8)
[2021-06-09 05:33] LABS: Anion Gap 14 mmol/L (10-20); BUN (Urea Nitrogen) 18 mg/dL (9.8-20.1); Calc. Creatinine Clearance 114 mL/min (70-130); Calcium 9.3 mg/dL (7.8-10.44); Carbon Dioxide 28 mmol/L (22-29); Chloride 99 mmol/L (98-107); Glucose 138 mg/dL (70-105); Potassium 3.3 mmol/L (3.5-5.1); Sodium 138 mmol/L (136-145)
[2021-06-09] MEDS: Gabapentin 400 MG CAP PO SCH ×3 (09:23→20:42)
[2021-06-09] MEDS: Furosemide 40 MG TAB PO SCH ×2 (09:24→20:42)
[2021-06-09] MEDS: Aspirin 81 mg Enteric Coated Tablet PO SCH (09:24)
[2021-06-09] MEDS: Amiodarone 200 MG TAB PO SCH ×2 (09:24→20:42)
[2021-06-09] MEDS: Clopidogrel Bisulfate 75 MG TAB PO SCH (09:24)
[2021-06-09] MEDS: Docusate 100 MG CAP PO SCH ×2 (09:24→20:42)
[2021-06-09] MEDS: Ubidecarenone 50 MG CAP PO SCH (09:25)
[2021-06-09] MEDS: Carvedilol 3.125 MG TAB PO SCH ×2 (09:28→20:42)
[2021-06-09] MEDS: Enoxaparin Sodium 40 MG/0.4 ML SYRINGE SC SCH (09:28)
[2021-06-09] MEDS: Insulin Regular 300 UNITS/3 ML VIAL SC PRN ×3 (11:26→20:46)
[2021-06-09] MEDS: Cyproheptadine 4 MG TAB PO SCH (20:42)
[2021-06-09] MEDS: Escitalopram Oxalate 20 mg Tablet PO SCH (20:42)
[2021-06-09] MEDS: Lantus 1000 UNITS/10 ML VIAL SC SCH (20:45)
[2021-06-09] MEDS: traMADol HCl 50 MG TAB PO PRN (23:48)
[2021-06-10] MEDS: Acetaminophen 325 MG TAB PO PRN ×2 (05:07→14:01)
[2021-06-10] MEDS: traMADol HCl 50 MG TAB PO PRN ×4 (05:08→22:44)
[2021-06-10] MEDS: Gabapentin 400 MG CAP PO SCH ×3 (08:26→21:34)
[2021-06-10] MEDS: Ubidecarenone 50 MG CAP PO SCH (08:26)
[2021-06-10] MEDS: Aspirin 81 mg Enteric Coated Tablet PO SCH (08:26)
[2021-06-10] MEDS: Furosemide 40 MG TAB PO SCH ×2 (08:27→21:27)
[2021-06-10] MEDS: Amiodarone 200 MG TAB PO SCH ×2 (08:27→21:27)
[2021-06-10] MEDS: Docusate 100 MG CAP PO SCH ×2 (08:27→21:27)
[2021-06-10] MEDS: Clopidogrel Bisulfate 75 MG TAB PO SCH (08:27)
[2021-06-10] MEDS: Carvedilol 3.125 MG TAB PO SCH ×2 (08:27→21:28)
[2021-06-10] MEDS: Enoxaparin Sodium 40 MG/0.4 ML SYRINGE SC SCH ×2 (08:29→08:30)
[2021-06-10] MEDS: HumaLOG 300 UNITS/3 ML VIAL SC SCH ×3 (08:32→17:02)
[2021-06-10] MEDS: Fioricet 325/50/40 mg Tablet PO PRN ×2 (14:21→23:01)
[2021-06-10] MEDS: Cyproheptadine 4 MG TAB PO SCH (21:26)
[2021-06-10] MEDS: Escitalopram Oxalate 20 mg Tablet PO SCH (21:27)
[2021-06-10] MEDS: Lantus 1000 UNITS/10 ML VIAL SC SCH (21:30)
[2021-06-11] MEDS: Fioricet 325/50/40 mg Tablet PO PRN ×2 (06:16→11:10)
[2021-06-11] MEDS: Furosemide 40 MG TAB PO SCH (09:05)
[2021-06-11] MEDS: Aspirin 81 mg Enteric Coated Tablet PO SCH (09:05)
[2021-06-11] MEDS: Carvedilol 3.125 MG TAB PO SCH (09:05)
[2021-06-11] MEDS: Docusate 100 MG CAP PO SCH (09:05)
[2021-06-11] MEDS: Clopidogrel Bisulfate 75 MG TAB PO SCH (09:05)
[2021-06-11] MEDS: Amiodarone 200 MG TAB PO SCH (09:05)
[2021-06-11] MEDS: Gabapentin 400 MG CAP PO SCH (09:05)
[2021-06-11] MEDS: Ubidecarenone 50 MG CAP PO SCH (09:05)
[2021-06-11] MEDS: HumaLOG 300 UNITS/3 ML VIAL SC SCH ×2 (09:06→11:53)
[2021-06-11] MEDS: Enoxaparin Sodium 40 MG/0.4 ML SYRINGE SC SCH (09:06)
[2021-06-11 12:19] VITALS: BP 141/82; TEMP 98.3
== END 2021-06-11 14:30 | DRG 103 ==
LOC: ERS 12:15 → NEURO 14:35
PROVIDERS: ADMIT Hospitalist; ATTEND Internal Medicine
DX: G43.409 Hemiplegic migraine, not intractable, without status migrainosus (principal); G45.9 Transient cerebral ischemic attack, unspecified; I50.32 Chronic diastolic (congestive) heart failure; I13.0 Hypertensive heart and chronic kidney disease with heart failure and stage 1 through stage 4 chronic kidney disease, or unspecified chronic kidney disease; Z23 Encounter for immunization; M17.12 Unilateral primary osteoarthritis, left knee; M06.9 Rheumatoid arthritis, unspecified; I48.91 Unspecified atrial fibrillation; E78.5 Hyperlipidemia, unspecified; I25.10 Atherosclerotic heart disease of native coronary artery without angina pectoris; N18.9 Chronic kidney disease, unspecified; F43.10 Post-traumatic stress disorder, unspecified; F41.9 Anxiety disorder, unspecified; E11.42 Type 2 diabetes mellitus with diabetic polyneuropathy; E11.22 Type 2 diabetes mellitus with diabetic chronic kidney disease; I08.1 Rheumatic disorders of both mitral and tricuspid valves; M25.562 Pain in left knee; Z95.1 Presence of aortocoronary bypass graft; Z88.5 Allergy status to narcotic agent; Z88.0 Allergy status to penicillin; Z88.1 Allergy status to other antibiotic agents; Z88.2 Allergy status to sulfonamides; Z91.041 Radiographic dye allergy status; Z91.040 Latex allergy status; Z79.899 Other long term (current) drug therapy; Z79.82 Long term (current) use of aspirin; Z79.4 Long term (current) use of insulin; Z79.02 Long term (current) use of antithrombotics/antiplatelets; I25.2 Old myocardial infarction; Z90.89 Acquired absence of other organs; Z90.49 Acquired absence of other specified parts of digestive tract; Z87.891 Personal history of nicotine dependence; Z86.73 Personal history of transient ischemic attack (TIA), and cerebral infarction without residual deficits
CPT/HCPCS: 36415; 36416; 70496; 70498; 70551; 80048; 80061; 83036; 85025; 90471; 90732; 93306; 95712; 95819; 95957; G0009; J1650; J1815; J2060; J2405; Q0162; Q9967

== ENCOUNTER 2021-09-02 00:10 | Observation (INO) | payer BC ==
[2021-09-02 03:15] VITALS: BMI 39.6
[2021-09-02] MEDS ORDERED: Ondansetron PF 4 MG/2 ML Vial IVP PRN (03:32)
[2021-09-02] MEDS ORDERED: diphenhydrAMINE 25 MG CAP PO PRN (03:35)
[2021-09-02] MEDS ORDERED: Dextrose 50% Abboject 50 ML SYRINGE SLOW IVP PRN (03:44)
[2021-09-02] MEDS ORDERED: Dextrose 5% in Water 1,000 ML IV PRN (03:44)
[2021-09-02] MEDS ORDERED: HumaLOG 300 UNITS/3 ML VIAL SC PRN ×2 (03:44)
[2021-09-02 04:47] LABS: #Lymphocytes 1.2 thou/uL (1.20-3.40); #Neutrophils 7.4 thou/uL (1.40-6.50); %Basophils 0.3 % (0.0-1.0); %Eosinophils 0.2 % (0.0-10.0); %Lymphocytes 13.9 % (21.0-51.0); %Monocytes 0.3 % (0.0-10.0); %Neutrophils 85.3 % (42.0-75.0); Hemoglobin 14.1 g/dL (12.0-16.0); Mean Corpuscular HGB CONC 33.8 g/dL (32.0-36.0); Mean Corpuscular Volume 91.6 fL (78.0-98.0); Mean Platelet Volume 8.4 fL (7.4-10.4); Platelet Count 289 thou/uL (130-400); RBC Distribution Width 12.2 % (11.5-14.5); Red Blood Cell (RBC) Count 4.56 mill/uL (4.20-5.40); White Blood Cell (WBC) Count 8.7 thou/uL (4.8-10.8)
[2021-09-02 05:19] LABS: Anion Gap 19 mmol/L (10-20); BUN (Urea Nitrogen) 20 mg/dL (9.8-20.1); Calc. Creatinine Clearance 111 mL/min (70-130); Calcium 9.5 mg/dL (7.8-10.44); Carbon Dioxide 20 mmol/L (22-29); Chloride 105 mmol/L (98-107); Glucose 274 mg/dL (70-105); Potassium 4.5 mmol/L (3.5-5.1); Sodium 139 mmol/L (136-145)
[2021-09-02] MEDS: Nitroglycerin 0.4 MG TAB (25 Tab Bottle) SL PRN (08:01)
[2021-09-02] MEDS: Acetaminophen 325 MG TAB PO PRN ×2 (08:05→21:26)
[2021-09-02 11:38] LABS: SARS-CoV-2 PCR by NAA Not Detected (NotDetected)
[2021-09-02] MEDS ORDERED: Furosemide 40 MG/4 ML VIAL SLOW IVP SCH (16:15)
[2021-09-02] MEDS ORDERED: Electrolyte Replacement Protocol 1 EACH FS SCH (18:45)
[2021-09-02] MEDS ORDERED: predniSONE 20 MG TAB PO SCH (18:45)
[2021-09-02] MEDS ORDERED: Electrolyte Replacement Protocol FS PRN (19:00)
[2021-09-02] MEDS: HumaLOG 300 UNITS/3 ML VIAL SC PRN (19:02)
[2021-09-02] MEDS ORDERED: Cyproheptadine 4 MG TAB PO SCH (21:00)
[2021-09-02] MEDS ORDERED: Insulin Glargine 30 UNITS/0.3 ML VIAL SC SCH (21:00)
[2021-09-02] MEDS ORDERED: Escitalopram Oxalate 20 mg Tablet PO SCH (21:00)
[2021-09-02] MEDS: Carvedilol 25 MG TAB PO SCH (21:23)
[2021-09-02] MEDS: Apixaban 5 MG TAB PO SCH (21:23)
[2021-09-02] MEDS: Famotidine 20 MG TAB PO SCH (21:25)
[2021-09-02] MEDS: Gabapentin 400 MG CAP PO SCH (21:25)
[2021-09-03] MEDS ORDERED: hydrALAZINE 20 MG/ML VIAL SLOW IVP PRN (00:23)
[2021-09-03] MEDS: Nitroglycerin 0.4 MG TAB (25 Tab Bottle) SL PRN ×2 (00:44→00:51)
[2021-09-03] MEDS ORDERED: Nitroglycerin 2% Ointment 1 INCH/1 GM Packet TOP SCH (03:15)
[2021-09-03] MEDS: Acetaminophen 325 MG TAB PO PRN (03:32)
[2021-09-03 04:23] LABS: #Basophils 0.1 thou/uL (0.0-0.2); #Lymphocytes 1.8 thou/uL (1.20-3.40); #Monocytes 0.4 thou/uL (0.11-0.59); #Neutrophils 8.4 thou/uL (1.40-6.50); %Basophils 0.5 % (0.0-1.0); %Eosinophils 0.3 % (0.0-10.0); %Monocytes 3.9 % (0.0-10.0); %Neutrophils 78.4 % (42.0-75.0); Hemoglobin 13.3 g/dL (12.0-16.0); Mean Corpuscular HGB CONC 33.3 g/dL (32.0-36.0); Mean Corpuscular Hemoglobin 30.5 pg (27.0-31.0); Mean Corpuscular Volume 91.6 fL (78.0-98.0); Mean Platelet Volume 8.3 fL (7.4-10.4); Platelet Count 267 thou/uL (130-400); RBC Distribution Width 12.2 % (11.5-14.5); Red Blood Cell (RBC) Count 4.37 mill/uL (4.20-5.40); White Blood Cell (WBC) Count 10.6 thou/uL (4.8-10.8)
[2021-09-03 04:43] LABS: Troponin I Less than 0.010 ng/mL (< 0.028)
[2021-09-03 04:44] LABS: Anion Gap 16 mmol/L (10-20); BUN (Urea Nitrogen) 21 mg/dL (9.8-20.1); Calc. Creatinine Clearance 120 mL/min (70-130); Calcium 9.1 mg/dL (7.8-10.44); Carbon Dioxide 21 mmol/L (22-29); Chloride 101 mmol/L (98-107); Glucose 235 mg/dL (70-105); Magnesium 1.7 mg/dL (1.6-2.6); Potassium 3.9 mmol/L (3.5-5.1); Sodium 134 mmol/L (136-145)
[2021-09-03] MEDS: HumaLOG 300 UNITS/3 ML VIAL SC PRN ×2 (05:56→17:39)
[2021-09-03] MEDS ORDERED: Furosemide 20 MG/2 ML VIAL SLOW IVP SCH (06:00)
[2021-09-03] MEDS ORDERED: Magnesium 2 GM/50 ML(in water) 2 GM in Premix Bag 1 BAG IVPB SCH (06:15)
[2021-09-03] MEDS ORDERED: Spironolactone 25 MG TAB PO SCH (08:00)
[2021-09-03] MEDS ORDERED: Dapagliflozin Propanediol [Farxiga] 10 MG Tablet PO SCH (09:00)
[2021-09-03] MEDS ORDERED: Clopidogrel Bisulfate 75 MG TAB PO SCH (09:00)
[2021-09-03] MEDS: Gabapentin 400 MG CAP PO SCH ×2 (09:25→17:34)
[2021-09-03] MEDS: Famotidine 20 MG TAB PO SCH (09:26)
[2021-09-03] MEDS: Apixaban 5 MG TAB PO SCH (09:26)
[2021-09-03] MEDS: Carvedilol 25 MG TAB PO SCH (09:26)
[2021-09-03 18:39] VITALS: BP 145/90; TEMP 98.3
[2021-09-03] MEDS ORDERED: Furosemide 20 MG TAB PO SCH (21:00)
== END 2021-09-03 20:10 | disposition home or self-care (01) ==
LOC: 2NO 03:02
PROVIDERS: ADMIT Internal Medicine; ATTEND Internal Medicine
DX: R07.89 Other chest pain (principal); I25.110 Atherosclerotic heart disease of native coronary artery with unstable angina pectoris; I11.0 Hypertensive heart disease with heart failure; I50.33 Acute on chronic diastolic (congestive) heart failure; I48.0 Paroxysmal atrial fibrillation; E11.9 Type 2 diabetes mellitus without complications; M06.9 Rheumatoid arthritis, unspecified; E78.00 Pure hypercholesterolemia, unspecified; Z87.891 Personal history of nicotine dependence; Z79.02 Long term (current) use of antithrombotics/antiplatelets; Z79.4 Long term (current) use of insulin; Z79.84 Long term (current) use of oral hypoglycemic drugs; Z79.899 Other long term (current) drug therapy; Z88.0 Allergy status to penicillin; Z88.1 Allergy status to other antibiotic agents; Z88.2 Allergy status to sulfonamides; Z88.5 Allergy status to narcotic agent; Z88.8 Allergy status to other drugs, medicaments and biological substances; Z91.040 Latex allergy status; Z91.048 Other nonmedicinal substance allergy status; Z95.1 Presence of aortocoronary bypass graft; Z95.5 Presence of coronary angioplasty implant and graft; Z20.822 Contact with and (suspected) exposure to COVID-19
CPT/HCPCS: 36415; 36416; 80048; 83735; 84484; 85025; 93005; 93010; 94760; 96365; 96375; 96376; G0378; J1815; J1940; J2405; J3475; J7512; U0003; U0005

== ENCOUNTER 2021-10-22 03:36 | Inpatient (IN) | payer BC ==
[2021-10-22] MEDS ORDERED: Fentanyl 100 MCG/2 ML VIAL ONE (03:59)
[2021-10-22] MEDS ORDERED: Acetaminophen 500 MG TAB ONE (04:01)
[2021-10-22] MEDS ORDERED: Ondansetron PF 4 MG/2 ML Vial IVP PRN (04:53)
[2021-10-22] MEDS ORDERED: Dextrose 5% in Water 1,000 ML IV PRN (04:53)
[2021-10-22] MEDS ORDERED: HumaLOG 300 UNITS/3 ML VIAL SC PRN ×2 (04:53)
[2021-10-22] MEDS ORDERED: Ondansetron ODT 4 MG TAB PO PRN (04:53)
[2021-10-22] MEDS ORDERED: Dextrose 50% Abboject 50 ML SYRINGE SLOW IVP PRN (04:53)
[2021-10-22] MEDS ORDERED: Acetaminophen 325 MG TAB PO PRN (04:53)
[2021-10-22] MEDS ORDERED: Acetaminophen 650 MG Suppository PR PRN (04:53)
[2021-10-22] MEDS ORDERED: Aspirin Chewable 81 MG TAB PO SCH (05:15)
[2021-10-22] MEDS ORDERED: Nitroglycerin 50 MG/250 ML BOT 250 ML IVPB SCH (05:30)
[2021-10-22] MEDS ORDERED: Electrolyte Replacement Protocol 1 EACH FS SCH ×2 (05:30→07:30)
[2021-10-22 06:06] LABS: #Basophils 0.1 thou/uL (0.0-0.2); #Eosinphils 0.2 thou/uL (0.0-0.7); #Lymphocytes 3.8 thou/uL (1.20-3.40); #Monocytes 0.7 thou/uL (0.11-0.59); #Neutrophils 3.2 thou/uL (1.40-6.50); %Eosinophils 2.8 % (0.0-10.0); %Lymphocytes 47.2 % (21.0-51.0); %Monocytes 8.7 % (0.0-10.0); %Neutrophils 40.2 % (42.0-75.0); Hemoglobin 13.4 g/dL (12.0-16.0); Mean Platelet Volume 8.9 fL (7.4-10.4); Platelet Count 261 thou/uL (130-400); RBC Distribution Width 12.2 % (11.5-14.5); Red Blood Cell (RBC) Count 4.33 mill/uL (4.20-5.40)
[2021-10-22 06:25] LABS: SARS-CoV-2 NAA Rapid Test Not Detected (NotDetected)
[2021-10-22 06:29] VITALS: BMI 40.2
[2021-10-22 06:40] LABS: Anion Gap 13 mmol/L (10-20); BUN (Urea Nitrogen) 15 mg/dL (9.8-20.1); Calc. Creatinine Clearance 135 mL/min (70-130); Calcium 8.9 mg/dL (7.8-10.44); Carbon Dioxide 25 mmol/L (22-29); Chloride 105 mmol/L (98-107); Cholesterol 181 mg/dl (< 200 Desired); Estimated GFR 93; Glucose 104 mg/dL (70-105); HDL Cholesterol 30 mg/dL (>60 Neg Risk); LDL Cholesterol, Calculated 111 mg/dL; Potassium 3.4 mmol/L (3.5-5.1); Sodium 140 mmol/L (136-145); Triglycerides 200 mg/dL (Less than 150)
[2021-10-22 07:01] LABS: Troponin I Less than 0.010 ng/mL (< 0.028)
[2021-10-22] MEDS ORDERED: Electrolyte Replacement Protocol FS PRN (07:45)
[2021-10-22 07:53] LABS: Magnesium 1.9 mg/dL (1.6-2.6)
[2021-10-22] MEDS ORDERED: Potassium Chloride 20 MEQ TAB PO SCH (08:00)
[2021-10-22] MEDS: Aspirin Chewable 81 MG TAB PO SCH (08:24)
[2021-10-22] MEDS ORDERED: Fentanyl 100 MCG/2 ML VIAL SLOW IVP SCH ×3 (09:15→20:15)
[2021-10-22] MEDS ORDERED: Magnesium 2 GM/50 ML(in water) 2 GM in Premix Bag 1 BAG IVPB SCH (11:00)
[2021-10-22 12:13] LABS: BHCG - Serum Negative (NEGATIVE); Pregs Control Background? CLEAR/WHITE (CLR/WHITE); Pregs Control Bar Appear? YES (CONTROL BAR)
[2021-10-22 12:25] LABS: Troponin I Less than 0.010 ng/mL (< 0.028)
[2021-10-22 16:13] LABS: Troponin I Less than 0.010 ng/mL (< 0.028)
[2021-10-22 20:23] LABS: Troponin I Less than 0.010 ng/mL (< 0.028)
[2021-10-22] MEDS: Apixaban 5 MG TAB PO SCH (20:27)
[2021-10-23 04:02] LABS: Hemoglobin A1c 7.3 % (4.0-6.0)
[2021-10-23 04:04] LABS: #Eosinphils 0.3 thou/uL (0.0-0.7); #Lymphocytes 2.9 thou/uL (1.20-3.40); #Monocytes 0.6 thou/uL (0.11-0.59); #Neutrophils 2.8 thou/uL (1.40-6.50); %Basophils 0.6 % (0.0-1.0); %Eosinophils 5.2 % (0.0-10.0); %Lymphocytes 43.4 % (21.0-51.0); %Monocytes 8.7 % (0.0-10.0); %Neutrophils 42.2 % (42.0-75.0); Hemoglobin 13.5 g/dL (12.0-16.0); Mean Corpuscular HGB CONC 33.4 g/dL (32.0-36.0); Mean Corpuscular Hemoglobin 30.4 pg (27.0-31.0); Mean Corpuscular Volume 91.2 fL (78.0-98.0); Mean Platelet Volume 8.6 fL (7.4-10.4); Platelet Count 252 thou/uL (130-400); RBC Distribution Width 12.2 % (11.5-14.5); Red Blood Cell (RBC) Count 4.43 mill/uL (4.20-5.40); White Blood Cell (WBC) Count 6.6 thou/uL (4.8-10.8)
[2021-10-23 04:13] LABS: Anion Gap 14 mmol/L (10-20); BUN (Urea Nitrogen) 15 mg/dL (9.8-20.1); Calc. Creatinine Clearance 129 mL/min (70-130); Calcium 9.1 mg/dL (7.8-10.44); Carbon Dioxide 26 mmol/L (22-29); Chloride 108 mmol/L (98-107); Estimated GFR 89; Glucose 174 mg/dL (70-105); Potassium 3.5 mmol/L (3.5-5.1); Sodium 144 mmol/L (136-145)
[2021-10-23 05:06] VITALS: TEMP 97.9
[2021-10-23] MEDS ORDERED: Potassium Chloride 20 MEQ TAB PO SCH (09:00)
[2021-10-23] MEDS ORDERED: ADENOSINE 60 MG/20 ML VIAL ONE (09:35)
[2021-10-23] MEDS: Aspirin Chewable 81 MG TAB PO SCH (15:26)
[2021-10-23] MEDS: Apixaban 5 MG TAB PO SCH (15:26)
[2021-10-23] MEDS ORDERED: Carvedilol 6.25 MG TAB PO SCH (21:00)
== END 2021-10-23 17:10 | disposition home or self-care (01) | DRG 313 ==
LOC: ERS 03:36 → CCU 04:35 → IMCU/EMU 15:22
PROVIDERS: ADMIT Internal Medicine; ATTEND Internal Medicine
DX: R07.89 Other chest pain (principal); Z68.41 Body mass index [BMI] 40.0-44.9, adult; I50.32 Chronic diastolic (congestive) heart failure; Z20.822 Contact with and (suspected) exposure to COVID-19; E11.9 Type 2 diabetes mellitus without complications; I48.91 Unspecified atrial fibrillation; E78.5 Hyperlipidemia, unspecified; I11.0 Hypertensive heart disease with heart failure; E66.01 Morbid (severe) obesity due to excess calories; F32.A Depression, unspecified; I45.10 Unspecified right bundle-branch block; F43.10 Post-traumatic stress disorder, unspecified; I25.10 Atherosclerotic heart disease of native coronary artery without angina pectoris; Z91.041 Radiographic dye allergy status; Z95.5 Presence of coronary angioplasty implant and graft; Z95.1 Presence of aortocoronary bypass graft; Z79.01 Long term (current) use of anticoagulants; Z91.040 Latex allergy status; Z88.5 Allergy status to narcotic agent; Z88.0 Allergy status to penicillin; Z88.2 Allergy status to sulfonamides; Z88.1 Allergy status to other antibiotic agents; Z88.8 Allergy status to other drugs, medicaments and biological substances; Z79.899 Other long term (current) drug therapy; Z79.4 Long term (current) use of insulin; I25.2 Old myocardial infarction; Z90.49 Acquired absence of other specified parts of digestive tract
CPT/HCPCS: 36415; 36416; 71250; 78452; 80048; 80061; 83036; 83735; 84484; 84703; 85025; 93005; 93010; 93017; 94760; A9500; J0153; J3010; J3475; U0002

== ENCOUNTER 2022-05-05 23:06 | Inpatient (IN) | payer BC, MEDICARE ==
[~2022-05-05 23:06] MED LIST changes: -Iopamidol 370 76% 100 ML VIAL ONE; +Iopamidol-370 76% 500 ML 1 ML ONE
[2022-05-05] MEDS ORDERED: diphenhydrAMINE 50 MG/ML VIAL ONE (23:17)
[2022-05-05 23:28] LABS: #Eosinphils 0.2 thou/uL (0.0-0.7); #Lymphocytes 3.7 thou/uL (1.20-3.40); #Monocytes 0.7 thou/uL (0.11-0.59); #Neutrophils 4.3 thou/uL (1.40-6.50); %Basophils 0.3 % (0.0-1.0); %Eosinophils 2.2 % (0.0-10.0); %Lymphocytes 41.2 % (21.0-51.0); %Monocytes 8.2 % (0.0-10.0); %Neutrophils 48.1 % (42.0-75.0); Hemoglobin 14.4 g/dL (12.0-16.0); Mean Corpuscular HGB CONC 34.7 g/dL (32.0-36.0); Mean Corpuscular Hemoglobin 31.3 pg (27.0-31.0); Mean Corpuscular Volume 90.2 fl (78.0-98.0); Mean Platelet Volume 8.6 fL (7.4-10.4); Platelet Count 246 10x3/uL (130-400); RBC Distribution Width 12.1 % (11.5-14.5); Red Blood Cell (RBC) Count 4.62 mill/uL (4.20-5.40); White Blood Cell (WBC) Count 8.9 10x3/uL (4.8-10.8)
[2022-05-05 23:39] LABS: PTT 35.4 sec (22.9-36.1); Prothrombin Time 13.9 sec (12.0-14.7)
[2022-05-05 23:43] LABS: ALT (SGPT) 17 U/L (8-55); AST (SGOT) 14 U/L (5-34); Albumin 4.5 g/dL (3.5-5.0); Alkaline Phosphatase 94 U/L (40-110); Anion Gap 14 mmol/L (10-20); BUN (Urea Nitrogen) 19 mg/dL (9.8-20.1); Bilirubin, Total 0.5 mg/dL (0.2-1.2); Calc. Creatinine Clearance 0 mL/min (70-130); Calcium 9.7 mg/dL (7.8-10.44); Carbon Dioxide 25 mmol/L (22-29); Chloride 103 mmol/L (98-107); Estimated GFR 63; Glucose 147 mg/dL (70-105); Potassium 3.3 mmol/L (3.5-5.1); Protein, Total 7.5 g/dL (6.0-8.3); Sodium 139 mmol/L (136-145)
[2022-05-05 23:44] LABS: CK (CPK) 113 U/L (29-168)
[2022-05-06] MEDS ORDERED: Fentanyl 100 MCG/2 ML VIAL ONE (01:57)
[2022-05-06] MEDS ORDERED: Potassium Chloride 20 MEQ TAB ONE ×2 (03:08→10:24)
[2022-05-06] MEDS ORDERED: Acetaminophen 325 MG TAB PO PRN (05:03)
[2022-05-06] MEDS ORDERED: Ondansetron PF 4 MG/2 ML Vial IVP PRN (05:03)
[2022-05-06 05:22] LABS: SARS-CoV-2 NAA Rapid Test Not Detected (NotDetected)
[2022-05-06] MEDS ORDERED: Acetaminophen 325 MG TAB ONE (05:48)
[2022-05-06] MEDS ORDERED: Electrolyte Replacement Protocol FS SCH (06:00)
[2022-05-06] MEDS ORDERED: Potassium Chloride 20 MEQ TAB PO SCH (08:00)
[2022-05-06 08:21] LABS: #Basophils 0.1 thou/uL (0.0-0.2); #Eosinphils 0.2 thou/uL (0.0-0.7); #Lymphocytes 2.8 thou/uL (1.20-3.40); #Monocytes 0.7 thou/uL (0.11-0.59); #Neutrophils 4.9 thou/uL (1.40-6.50); %Basophils 1.2 % (0.0-1.0); %Eosinophils 2.4 % (0.0-10.0); %Lymphocytes 32.4 % (21.0-51.0); %Monocytes 7.5 % (0.0-10.0); %Neutrophils 56.4 % (42.0-75.0); Mean Corpuscular HGB CONC 33.6 g/dL (32.0-36.0); Mean Corpuscular Hemoglobin 30.7 pg (27.0-31.0); Mean Corpuscular Volume 91.5 fl (78.0-98.0); Platelet Count 241 10x3/uL (130-400); RBC Distribution Width 12.2 % (11.5-14.5); Red Blood Cell (RBC) Count 4.57 mill/uL (4.20-5.40); White Blood Cell (WBC) Count 8.7 10x3/uL (4.8-10.8)
[2022-05-06] MEDS ORDERED: Lorazepam 2 MG/ML VIAL SLOW IVP SCH (08:30)
[2022-05-06 08:48] VITALS: BMI 40.4
[2022-05-06] MEDS ORDERED: LORazepam 2 MG/ML SYR.(CARPUJECT) ONE (08:58)
[2022-05-06] MEDS ORDERED: Apixaban 5 MG TAB PO SCH (09:00)
[2022-05-06 09:06] LABS: Chloride 105 mmol/L (98-107); Potassium 4.4 mmol/L (3.5-5.1); Sodium 140 mmol/L (136-145)
[2022-05-06 09:07] LABS: Calcium 9.1 mg/dL (7.8-10.44); Glucose 161 mg/dL (70-105)
[2022-05-06 09:09] LABS: Anion Gap 14 mmol/L (10-20); Carbon Dioxide 25 mmol/L (22-29)
[2022-05-06 09:11] LABS: Calc. Creatinine Clearance 121 mL/min (70-130); Estimated GFR 81
[2022-05-06 09:12] LABS: BUN (Urea Nitrogen) 17 mg/dL (9.8-20.1)
[2022-05-06 09:13] LABS: Magnesium 2.1 mg/dL (1.6-2.6)
[2022-05-06 10:32] VITALS: TEMP 98
[2022-05-06] MEDS ORDERED: Fioricet 325/50/40 mg Tablet PO PRN (11:20)
[2022-05-06] MEDS ORDERED: Fioricet 325/50/40 mg Tablet ONE (12:07)
[2022-05-06 13:45] VITALS: BP 172/101
== END 2022-05-06 16:13 | disposition short-term general hospital, planned readmission (82) | DRG 57 ==
LOC: ERS 23:06 → ERHOLD 05-06 01:51
PROVIDERS: ADMIT Internal Medicine; ATTEND Internal Medicine
DX: G81.94 Hemiplegia, unspecified affecting left nondominant side (principal); Z68.41 Body mass index [BMI] 40.0-44.9, adult; I25.10 Atherosclerotic heart disease of native coronary artery without angina pectoris; I50.9 Heart failure, unspecified; F41.9 Anxiety disorder, unspecified; I48.91 Unspecified atrial fibrillation; E66.9 Obesity, unspecified; E78.5 Hyperlipidemia, unspecified; M06.9 Rheumatoid arthritis, unspecified; F43.10 Post-traumatic stress disorder, unspecified; E87.6 Hypokalemia; I10 Essential (primary) hypertension; E11.9 Type 2 diabetes mellitus without complications; R29.810 Facial weakness; R47.1 Dysarthria and anarthria; Z95.5 Presence of coronary angioplasty implant and graft; Z90.49 Acquired absence of other specified parts of digestive tract; Z95.1 Presence of aortocoronary bypass graft; Z91.041 Radiographic dye allergy status; Z88.5 Allergy status to narcotic agent; Z88.0 Allergy status to penicillin; Z88.8 Allergy status to other drugs, medicaments and biological substances; I25.2 Old myocardial infarction; Z79.899 Other long term (current) drug therapy; Z88.2 Allergy status to sulfonamides
CPT/HCPCS: 70450; 70496; 70498; 70551; 71045; 80048; 80053; 82550; 83605; 83735; 84484; 85025; 85610; 85730; 93005; 96374; 96375; 96376; J1200; J2060; J3010; Q9967; U0002

== ENCOUNTER 2022-08-28 12:47 | Outpatient (CLI) | payer OTHER | END 2022-08-28 12:48 | disposition home or self-care (01) | LOC: BICMAMMO 12:47 | PROVIDERS: ATTEND Internal Medicine | DX: Z12.31 Encounter for screening mammogram for malignant neoplasm of breast (principal) | CPT/HCPCS: 77063; 77067 ==

== ENCOUNTER 2022-10-20 18:21 | Emergency (ER) | payer BC, MEDICARE ==
[2022-10-20 19:42] LABS: #Basophils 0.1 thou/uL (0.0-0.2); #Eosinphils 0.1 thou/uL (0.0-0.7); #Monocytes 0.6 thou/uL (0.11-0.59); #Neutrophils 4.5 thou/uL (1.40-6.50); %Basophils 0.6 % (0.0-1.0); %Eosinophils 1.5 % (0.0-10.0); %Lymphocytes 37.7 % (21.0-51.0); %Monocytes 7.1 % (0.0-10.0); %Neutrophils 52.9 % (42.0-75.0); Mean Corpuscular HGB CONC 34.1 g/dL (32.0-36.0); Mean Corpuscular Hemoglobin 30.1 pg (27.0-31.0); Mean Corpuscular Volume 88.2 fl (78.0-98.0); Mean Platelet Volume 11.2 fL (7.4-10.4); Platelet Count 299 10x3/uL (130-400); RBC Distribution Width 13.6 % (11.5-14.5); Red Blood Cell (RBC) Count 4.32 mill/uL (4.20-5.40); White Blood Cell (WBC) Count 8.5 10x3/uL (4.8-10.8)
[2022-10-20 20:04] LABS: ALT (SGPT) 21 U/L (8-55); AST (SGOT) 20 U/L (5-34); Albumin 4.3 g/dL (3.5-5.0); Alkaline Phosphatase 112 U/L (40-110); Anion Gap 14 mmol/L (10-20); BUN (Urea Nitrogen) 10 mg/dL (9.8-20.1); Bilirubin, Total 0.4 mg/dL (0.2-1.2); Calc. Creatinine Clearance 0 mL/min (70-130); Calcium 9.3 mg/dL (7.8-10.44); Carbon Dioxide 24 mmol/L (22-29); Chloride 107 mmol/L (98-107); Estimated GFR 84; Globulin 2.8 g/dL (2.4-3.5); Glucose 120 mg/dL (70-105); Magnesium 1.9 mg/dL (1.6-2.6); Protein, Total 7.1 g/dL (6.0-8.3); Sodium 142 mmol/L (136-145)
[2022-10-20] MEDS ORDERED: Potassium Chloride 20 MEQ TAB ONE (21:51)
[2022-10-20] MEDS ORDERED: Pot Chloride/Pot Bicarb/Cit Ac 25 mEq Effervescent Tablet ONE (21:55)
== END 2022-10-20 23:17 | disposition home or self-care (01) ==
LOC: ERS 18:21
DX: R07.89 Other chest pain (principal); E87.6 Hypokalemia; R42 Dizziness and giddiness; I25.2 Old myocardial infarction; I11.0 Hypertensive heart disease with heart failure; I50.9 Heart failure, unspecified; E11.9 Type 2 diabetes mellitus without complications; E11.40 Type 2 diabetes mellitus with diabetic neuropathy, unspecified; E78.5 Hyperlipidemia, unspecified; Z79.01 Long term (current) use of anticoagulants; Z79.02 Long term (current) use of antithrombotics/antiplatelets; Z79.899 Other long term (current) drug therapy; Z87.891 Personal history of nicotine dependence
CPT/HCPCS: 36415; 71045; 80053; 83735; 83880; 84484; 85025; 93005

== ENCOUNTER 2022-11-10 10:28 | Inpatient (IN) | payer BC, MEDICARE ==
[~2022-11-10 10:28] MED LIST changes: -Iopamidol-370 76% 500 ML 1 ML ONE; +Iopamidol-370 76% 500 ML MDV (1 ML CHARGE) ONE
[2022-11-10 11:13] LABS: #Basophils 0.1 thou/uL (0.0-0.2); #Eosinphils 0.1 thou/uL (0.0-0.7); #Monocytes 0.6 thou/uL (0.11-0.59); #Neutrophils 11.3 thou/uL (1.40-6.50); %Basophils 0.3 % (0.0-1.0); %Eosinophils 0.5 % (0.0-10.0); %Lymphocytes 19.5 % (21.0-51.0); %Monocytes 3.7 % (0.0-10.0); %Neutrophils 75.5 % (42.0-75.0); Hemoglobin 10.2 g/dL (12.0-16.0); Mean Corpuscular HGB CONC 33.7 g/dL (32.0-36.0); Mean Corpuscular Hemoglobin 29.9 pg (27.0-31.0); Mean Corpuscular Volume 88.9 fl (78.0-98.0); Mean Platelet Volume 11.7 fL (7.4-10.4); Platelet Count 304 10x3/uL (130-400); RBC Distribution Width 13.4 % (11.5-14.5); Red Blood Cell (RBC) Count 3.41 mill/uL (4.20-5.40)
[2022-11-10 11:26] LABS: INR-International Normal Ratio 1.1; PTT 25.5 sec (22.9-36.1); Prothrombin Time 14.3 sec (12.0-14.7)
[2022-11-10] MEDS ORDERED: methylPREDNISolone Sod Succ 40 MG VIAL ONE (11:54)
[2022-11-10] MEDS ORDERED: diphenhydrAMINE 50 MG CAP ONE (11:54)
[2022-11-10] MEDS ORDERED: Ondansetron PF 4 MG/2 ML Vial ONE ×2 (11:54→13:37)
[2022-11-10] MEDS ORDERED: Famotidine/PF 20 mg/2ml Vial ONE (11:54)
[2022-11-10] MEDS ORDERED: diphenhydrAMINE 50 MG/ML VIAL ONE (11:55)
[2022-11-10 11:58] LABS: ALT (SGPT) 22 U/L (8-55); AST (SGOT) 15 U/L (5-34); Alkaline Phosphatase 96 U/L (40-110); Anion Gap 16 mmol/L (10-20); BUN (Urea Nitrogen) 43 mg/dL (9.8-20.1); Bilirubin, Total 0.4 mg/dL (0.2-1.2); Calc. Creatinine Clearance 0 mL/min (70-130); Carbon Dioxide 23 mmol/L (22-29); Chloride 103 mmol/L (98-107); Estimated GFR 77; Globulin 2.4 g/dL (2.4-3.5); Glucose 331 mg/dL (70-105); Lipase 34 U/L (8-78); Potassium 3.4 mmol/L (3.5-5.1); Protein, Total 6.4 g/dL (6.0-8.3); Sodium 139 mmol/L (136-145)
[2022-11-10] MEDS ORDERED: Ondansetron PF 4 MG/2 ML Vial IVP PRN (13:15)
[2022-11-10] MEDS ORDERED: Sodium Chloride 0.9% 1,000 ML IV SCH (13:15)
[2022-11-10] MEDS ORDERED: Acetaminophen 325 MG TAB PO PRN (13:15)
[2022-11-10] MEDS ORDERED: Ondansetron ODT 4 MG TAB SL PRN (13:15)
[2022-11-10] MEDS ORDERED: Dextrose 5% in Water 1,000 ML IV PRN (13:16)
[2022-11-10] MEDS ORDERED: Glucagon 1 MG/ML KIT IM PRN (13:16)
[2022-11-10] MEDS ORDERED: HumaLOG 300 UNITS/3 ML VIAL SC PRN (13:16)
[2022-11-10] MEDS ORDERED: Dextrose 50% Abboject 50 ML SYRINGE SLOW IVP PRN (13:16)
[2022-11-10] MEDS ORDERED: Electrolyte Replacement Protocol 1 EACH FS SCH (13:30)
[2022-11-10] MEDS ORDERED: Cefepime 2 GM VIAL ONE (14:13)
[2022-11-10] MEDS ORDERED: Pantoprazole 40 MG VIAL IVP SCH ×4 (14:15→21:00)
[2022-11-10 15:15] LABS: Lactic Acid 2.2 mmol/L (0.5-2.2)
[2022-11-10] MEDS ORDERED: Pantoprazole 80 MG in Sodium Chloride 0.9% 100 ML IVPB SCH (15:30)
[2022-11-10 15:37] VITALS: BMI 35.4
[2022-11-10] MEDS ORDERED: Metoprolol Tartrate 5 MG/5 ML VIAL IVP PRN (16:12)
[2022-11-10] MEDS: Sodium Chloride 0.9% 1,000 ML IV SCH (16:25)
[2022-11-10] MEDS: Pantoprazole 80 MG, Admixture Fee 1 EACH in Sodium Chloride 0.9% 100 ML IVPB SCH ×3 (16:36→17:29)
[2022-11-10] MEDS: fentaNYL 50 mcg/mL 1 mL Vial SLOW IVP PRN ×2 (16:36→21:01)
[2022-11-10 17:13] LABS: Hemoglobin 9.8 g/dL (12.0-16.0)
[2022-11-10] MEDS: Gabapentin 400 MG CAP PO SCH (21:00)
[2022-11-10] MEDS: Amiodarone 200 MG TAB PO SCH (21:01)
[2022-11-10] MEDS: Escitalopram Oxalate 20 mg Tablet PO SCH (21:01)
[2022-11-10] MEDS: Potassium Chloride 20 MEQ in Premix Bag 1 BAG IVPB SCH ×2 (21:02→23:25)
[2022-11-10] MEDS ORDERED: Potassium Chloride 20 MEQ TAB PO SCH (23:30)
[2022-11-10 23:31] LABS: Hemoglobin 9.2 g/dL (12.0-16.0)
[2022-11-11] MEDS: fentaNYL 50 mcg/mL 1 mL Vial SLOW IVP PRN ×4 (02:50→21:27)
[2022-11-11] MEDS: Sodium Chloride 0.9% 1,000 ML IV SCH (03:30)
[2022-11-11 05:25] LABS: #Monocytes 0.5 thou/uL (0.11-0.59); #Neutrophils 5.8 thou/uL (1.40-6.50); %Basophils 0.3 % (0.0-1.0); %Lymphocytes 31.1 % (21.0-51.0); %Monocytes 5.7 % (0.0-10.0); %Neutrophils 62.6 % (42.0-75.0); Hemoglobin 8.1 g/dL (12.0-16.0); Mean Corpuscular HGB CONC 33.1 g/dL (32.0-36.0); Mean Corpuscular Hemoglobin 29.9 pg (27.0-31.0); Mean Corpuscular Volume 90.4 fl (78.0-98.0); Platelet Count 233 10x3/uL (130-400); RBC Distribution Width 13.7 % (11.5-14.5); Red Blood Cell (RBC) Count 2.71 mill/uL (4.20-5.40); White Blood Cell (WBC) Count 9.3 10x3/uL (4.8-10.8)
[2022-11-11 05:53] LABS: Anion Gap 9 mmol/L (10-20); BUN (Urea Nitrogen) 34 mg/dL (9.8-20.1); Calc. Creatinine Clearance 110 mL/min (70-130); Calcium 8.8 mg/dL (7.8-10.44); Carbon Dioxide 23 mmol/L (22-29); Chloride 114 mmol/L (98-107); Estimated GFR 85; Glucose 190 mg/dL (70-105); Potassium 3.5 mmol/L (3.5-5.1); Sodium 142 mmol/L (136-145)
[2022-11-11] MEDS ORDERED: Potassium Chloride 20 MEQ TAB PO SCH (08:00)
[2022-11-11] MEDS: Gabapentin 400 MG CAP PO SCH ×3 (08:56→21:27)
[2022-11-11] MEDS: Amiodarone 200 MG TAB PO SCH ×2 (08:56→21:27)
[2022-11-11] MEDS ORDERED: PROPOFOL 200 MG/20 ML VIAL ONE (13:02)
[2022-11-11] MEDS ORDERED: Lidocaine 1% PF 5 ML VIAL ONE (13:02)
[2022-11-11] MEDS ORDERED: Ondansetron PF 4 MG/2 ML Vial ONE (13:02)
[2022-11-11] MEDS ORDERED: Iron, Sodium Ferric Gluconate 250 MG in Sodium Chloride 0.9% 250 ML 250 ML IVPB SCH (13:15)
[2022-11-11] MEDS ORDERED: Ondansetron HCl/PF 4 MG/2 ML Vial IVP PRN (13:19)
[2022-11-11] MEDS ORDERED: Promethazine HCl 25 MG/ML VIAL IM PRN (13:19)
[2022-11-11] MEDS: Sucralfate 1 GM/10 ML UDCUP PO SCH ×2 (17:25→21:27)
[2022-11-11] MEDS ORDERED: Ondansetron ODT 4 MG TAB PO PRN (20:30)
[2022-11-11] MEDS: Escitalopram Oxalate 20 mg Tablet PO SCH (21:27)
[2022-11-11] MEDS: Ondansetron PF 4 MG/2 ML Vial IVP PRN (21:27)
[2022-11-11] MEDS: Pantoprazole 40 MG VIAL IVP SCH (21:27)
[2022-11-12] MEDS: fentaNYL 50 mcg/mL 1 mL Vial SLOW IVP PRN ×3 (03:55→18:08)
[2022-11-12 04:23] LABS: #Basophils 0.1 thou/uL (0.0-0.2); #Eosinphils 0.1 thou/uL (0.0-0.7); #Monocytes 0.4 thou/uL (0.11-0.59); #Neutrophils 2.2 thou/uL (1.40-6.50); %Basophils 0.9 % (0.0-1.0); %Eosinophils 1.9 % (0.0-10.0); %Lymphocytes 51.7 % (21.0-51.0); %Monocytes 6.8 % (0.0-10.0); %Neutrophils 38.4 % (42.0-75.0); Hemoglobin 7.4 g/dL (12.0-16.0); Mean Corpuscular HGB CONC 32.6 g/dL (32.0-36.0); Mean Corpuscular Volume 91.9 fl (78.0-98.0); Platelet Count 199 10x3/uL (130-400); RBC Distribution Width 14.3 % (11.5-14.5); Red Blood Cell (RBC) Count 2.47 mill/uL (4.20-5.40); White Blood Cell (WBC) Count 5.7 10x3/uL (4.8-10.8)
[2022-11-12 05:19] LABS: Anion Gap 10 mmol/L (10-20); BUN (Urea Nitrogen) 28 mg/dL (9.8-20.1); Carbon Dioxide 24 mmol/L (22-29); Chloride 112 mmol/L (98-107); Potassium 3.9 mmol/L (3.5-5.1); Sodium 142 mmol/L (136-145)
[2022-11-12 05:20] LABS: Calc. Creatinine Clearance 117 mL/min (70-130); Calcium 8.5 mg/dL (7.8-10.44); Estimated GFR 92; Glucose 164 mg/dL (70-105); Magnesium 1.7 mg/dL (1.6-2.6)
[2022-11-12] MEDS ORDERED: Magnesium 2 GM/50 ML(in water) 2 GM in Premix Bag 1 BAG IVPB SCH ×2 (08:00)
[2022-11-12] MEDS: Pantoprazole 40 MG VIAL IVP SCH ×2 (08:51→21:03)
[2022-11-12] MEDS: Amiodarone 200 MG TAB PO SCH ×2 (08:52→21:03)
[2022-11-12] MEDS: Gabapentin 400 MG CAP PO SCH ×3 (08:52→21:02)
[2022-11-12] MEDS: Sucralfate 1 GM/10 ML UDCUP PO SCH ×4 (08:53→21:03)
[2022-11-12] MEDS: Insulin Glargine 30 UNITS/0.3 ML VIAL SC SCH (08:57)
[2022-11-12] MEDS ORDERED: Lidocaine 4% Patch TD SCH (11:30)
[2022-11-12] MEDS: Escitalopram Oxalate 20 mg Tablet PO SCH (21:02)
[2022-11-12] MEDS: Transdermal Patch Removal TOP SCH (21:03)
[2022-11-12] MEDS ORDERED: fentaNYL 50 mcg/mL 1 mL Vial SLOW IVP SCH (23:15)
[2022-11-13 00:20] LABS: Hemoglobin 6.9 g/dL (12.0-16.0)
[2022-11-13 00:36] LABS: Troponin I Less than 0.010 ng/mL (< 0.028)
[2022-11-13] MEDS: Ondansetron PF 4 MG/2 ML Vial IVP PRN ×2 (01:57→23:16)
[2022-11-13] MEDS: fentaNYL 50 mcg/mL 1 mL Vial SLOW IVP PRN ×4 (03:40→20:07)
[2022-11-13 07:43] LABS: #Eosinphils 0.2 thou/uL (0.0-0.7); #Monocytes 0.4 thou/uL (0.11-0.59); #Neutrophils 2.3 thou/uL (1.40-6.50); %Basophils 0.7 % (0.0-1.0); %Lymphocytes 50.1 % (21.0-51.0); %Monocytes 6.9 % (0.0-10.0); %Neutrophils 37.5 % (42.0-75.0); Hemoglobin 8.1 g/dL (12.0-16.0); Mean Corpuscular HGB CONC 32.7 g/dL (32.0-36.0); Mean Corpuscular Hemoglobin 30.2 pg (27.0-31.0); Mean Corpuscular Volume 92.5 fl (78.0-98.0); Mean Platelet Volume 12.3 fL (7.4-10.4); Platelet Count 184 10x3/uL (130-400); RBC Distribution Width 14.1 % (11.5-14.5); Red Blood Cell (RBC) Count 2.68 mill/uL (4.20-5.40); White Blood Cell (WBC) Count 6.1 10x3/uL (4.8-10.8)
[2022-11-13 08:16] LABS: Anion Gap 11 mmol/L (10-20); BUN (Urea Nitrogen) 19 mg/dL (9.8-20.1); Calc. Creatinine Clearance 131 mL/min (70-130); Calcium 8.6 mg/dL (7.8-10.44); Carbon Dioxide 24 mmol/L (22-29); Chloride 110 mmol/L (98-107); Estimated GFR 101; Glucose 143 mg/dL (70-105); Potassium 3.7 mmol/L (3.5-5.1); Sodium 141 mmol/L (136-145)
[2022-11-13] MEDS ORDERED: Magnesium 2 GM/50 ML(in water) 2 GM in Premix Bag 1 BAG IVPB SCH (09:45)
[2022-11-13] MEDS: Lidocaine 4% Patch TD SCH (09:54)
[2022-11-13] MEDS: Pantoprazole 40 MG VIAL IVP SCH ×2 (09:54→21:29)
[2022-11-13] MEDS: Gabapentin 400 MG CAP PO SCH ×3 (09:54→21:35)
[2022-11-13] MEDS: Sucralfate 1 GM/10 ML UDCUP PO SCH ×4 (09:54→21:32)
[2022-11-13] MEDS: Amiodarone 200 MG TAB PO SCH ×2 (09:55→21:33)
[2022-11-13] MEDS: Insulin Glargine 30 UNITS/0.3 ML VIAL SC SCH (09:56)
[2022-11-13] MEDS: Escitalopram Oxalate 20 mg Tablet PO SCH (21:33)
[2022-11-13] MEDS: Transdermal Patch Removal TOP SCH (21:35)
[2022-11-14] MEDS: fentaNYL 50 mcg/mL 1 mL Vial SLOW IVP PRN ×3 (00:26→08:40)
[2022-11-14] MEDS ORDERED: Simethicone Chewable 80 MG TAB PO PRN (00:41)
[2022-11-14 03:52] VITALS: TEMP 97.6
[2022-11-14 05:40] LABS: Hemoglobin 8.9 g/dL (12.0-16.0); Platelet Count 231 10x3/uL (130-400)
[2022-11-14 07:56] VITALS: BP 147/69
[2022-11-14] MEDS: Gabapentin 400 MG CAP PO SCH (08:39)
[2022-11-14] MEDS: Sucralfate 1 GM/10 ML UDCUP PO SCH (08:40)
[2022-11-14] MEDS: Amiodarone 200 MG TAB PO SCH (08:40)
[2022-11-14] MEDS: Insulin Glargine 30 UNITS/0.3 ML VIAL SC SCH (08:41)
[2022-11-14] MEDS: Pantoprazole 40 MG VIAL IVP SCH (08:41)
[2022-11-14] MEDS: Lidocaine 4% Patch TD SCH (08:41)
== END 2022-11-14 12:10 | disposition home or self-care (01) | DRG 378 ==
LOC: ERS 10:28 → 2NO 13:07
PROVIDERS: ADMIT Internal Medicine; ATTEND Hospitalist
PROC: 0DJ08ZZ Inspection of Upper Intestinal Tract, Via Natural or Artificial Opening Endoscopic (ICD-10-PCS; principal; 2022-11-11)
PROC: 30233N1 Transfusion of Nonautologous Red Blood Cells into Peripheral Vein, Percutaneous Approach (ICD-10-PCS; 2022-11-13)
DX: K28.4 Chronic or unspecified gastrojejunal ulcer with hemorrhage (principal); D62 Acute posthemorrhagic anemia; I48.20 Chronic atrial fibrillation, unspecified; I50.32 Chronic diastolic (congestive) heart failure; K50.90 Crohn's disease, unspecified, without complications; I25.10 Atherosclerotic heart disease of native coronary artery without angina pectoris; I48.91 Unspecified atrial fibrillation; E11.40 Type 2 diabetes mellitus with diabetic neuropathy, unspecified; E78.5 Hyperlipidemia, unspecified; G43.909 Migraine, unspecified, not intractable, without status migrainosus; G47.33 Obstructive sleep apnea (adult) (pediatric); E87.6 Hypokalemia; E66.01 Morbid (severe) obesity due to excess calories; F41.9 Anxiety disorder, unspecified; F43.10 Post-traumatic stress disorder, unspecified; I11.0 Hypertensive heart disease with heart failure; Z88.1 Allergy status to other antibiotic agents; Z91.040 Latex allergy status; Z91.010 Allergy to peanuts; Z88.0 Allergy status to penicillin; Z88.2 Allergy status to sulfonamides; Z90.710 Acquired absence of both cervix and uterus; I25.2 Old myocardial infarction; Z95.5 Presence of coronary angioplasty implant and graft; Z86.73 Personal history of transient ischemic attack (TIA), and cerebral infarction without residual deficits; Z95.1 Presence of aortocoronary bypass graft; Z90.49 Acquired absence of other specified parts of digestive tract; Z98.890 Other specified postprocedural states; Z91.09 Other allergy status, other than to drugs and biological substances; Z79.01 Long term (current) use of anticoagulants; Z90.81 Acquired absence of spleen; Z68.35 Body mass index [BMI] 35.0-35.9, adult
CPT/HCPCS: 36415; 36416; 36430; 74177; 80048; 80053; 83605; 83690; 83735; 84484; 85014; 85018; 85025; 85049; 85610; 85730; 86850; 86900; 86901; 87040; 93005; 93010; 96374; 96375; 96376; C9113; J0692; J1200; J1815; J2405; J2704; J2916; J2920; J3010; J3475; J3480; J3490; J7050; P9016; Q0162; Q9967; S0028

== ENCOUNTER 2022-11-16 22:58 | Inpatient (IN) | payer BC, MEDICARE ==
[2022-11-17 01:22] LABS: #Eosinphils 0.2 thou/uL (0.0-0.7); #Monocytes 0.6 thou/uL (0.11-0.59); #Neutrophils 3.8 thou/uL (1.40-6.50); %Basophils 0.4 % (0.0-1.0); %Eosinophils 2.4 % (0.0-10.0); %Lymphocytes 38.4 % (21.0-51.0); %Monocytes 7.5 % (0.0-10.0); Hematocrit 28.2 % (36.0-47.0); Hemoglobin 9.3 g/dL (12.0-16.0); Mean Corpuscular Hemoglobin 30.8 pg (27.0-31.0); Mean Corpuscular Volume 93.4 fl (78.0-98.0); Mean Platelet Volume 11.6 fL (7.4-10.4); Platelet Count 292 10x3/uL (130-400); RBC Distribution Width 15.1 % (11.5-14.5); Red Blood Cell (RBC) Count 3.02 mill/uL (4.20-5.40); White Blood Cell (WBC) Count 7.4 10x3/uL (4.8-10.8)
[2022-11-17 01:41] LABS: INR-International Normal Ratio 0.9; PTT 24.3 sec (22.9-36.1); Prothrombin Time 12.7 sec (12.0-14.7)
[2022-11-17] MEDS ORDERED: diphenhydrAMINE 50 MG/ML VIAL ONE (01:44)
[2022-11-17] MEDS ORDERED: Famotidine/PF 20 mg/2ml Vial ONE ×2 (01:44→02:14)
[2022-11-17] MEDS ORDERED: methylPREDNISolone Sod Succ 40 MG VIAL ONE (01:44)
[2022-11-17 01:59] LABS: ALT (SGPT) 20 U/L (8-55); AST (SGOT) 18 U/L (5-34); Albumin 3.9 g/dL (3.5-5.0); Alkaline Phosphatase 92 U/L (40-110); Anion Gap 15 mmol/L (10-20); BUN (Urea Nitrogen) 9 mg/dL (9.8-20.1); Bilirubin, Total 0.4 mg/dL (0.2-1.2); Calc. Creatinine Clearance 0 mL/min (70-130); Calcium 8.9 mg/dL (7.8-10.44); Carbon Dioxide 22 mmol/L (22-29); Chloride 107 mmol/L (98-107); Estimated GFR 101; Globulin 2.6 g/dL (2.4-3.5); Glucose 140 mg/dL (70-105); Lipase 111 U/L (8-78); Potassium 3.4 mmol/L (3.5-5.1); Protein, Total 6.5 g/dL (6.0-8.3); Sodium 141 mmol/L (136-145)
[2022-11-17] MEDS ORDERED: Ondansetron PF 4 MG/2 ML Vial ONE (02:14)
[2022-11-17] MEDS ORDERED: fentaNYL 50 mcg/mL 1 mL Vial ONE (04:52)
[2022-11-17] MEDS ORDERED: Acetaminophen 325 MG TAB PO PRN (08:00)
[2022-11-17] MEDS ORDERED: Ondansetron PF 4 MG/2 ML Vial IVP PRN (09:00)
[2022-11-17] MEDS ORDERED: Ondansetron ODT 4 MG TAB SL PRN (09:00)
[2022-11-17] MEDS ORDERED: Dextrose 5% in Water 1,000 ML IV PRN (09:05)
[2022-11-17] MEDS ORDERED: Dextrose 50% Abboject 50 ML SYRINGE SLOW IVP PRN (09:05)
[2022-11-17] MEDS ORDERED: HumaLOG 300 UNITS/3 ML VIAL SC PRN (09:05)
[2022-11-17] MEDS ORDERED: Glucagon 1 MG/ML KIT IM PRN (09:05)
[2022-11-17] MEDS ORDERED: Iopamidol 370 76% 100 ML VIAL ONE (10:25)
[2022-11-17] MEDS ORDERED: Sucralfate 1 GM/10 ML UDCUP ONE ×2 (11:01→11:02)
[2022-11-17] MEDS ORDERED: Pantoprazole 40 MG VIAL ONE (11:01)
[2022-11-17] MEDS: Sucralfate 1 GM/10 ML UDCUP PO SCH ×2 (11:08→20:01)
[2022-11-17] MEDS: Pantoprazole 40 MG VIAL IVP SCH ×2 (11:08→20:01)
[2022-11-17] MEDS: Lactated Ringer's 1,000 ML IV SCH ×2 (11:08→21:18)
[2022-11-17] MEDS: Ondansetron PF 4 MG/2 ML Vial IVP PRN (13:57)
[2022-11-17] MEDS: fentaNYL 50 mcg/mL 1 mL Vial SLOW IVP PRN ×2 (13:57→20:01)
[2022-11-17 16:43] VITALS: BMI 34.9
[2022-11-17] MEDS ORDERED: Escitalopram Oxalate 20 mg Tablet PO SCH (22:15)
[2022-11-17] MEDS ORDERED: Gabapentin 300 MG CAP PO SCH (22:15)
[2022-11-17] MEDS: Acetaminophen 325 MG TAB PO PRN (22:56)
[2022-11-17] MEDS ORDERED: Loratadine 10 MG TAB PO SCH (23:00)
[2022-11-18] MEDS: fentaNYL 50 mcg/mL 1 mL Vial SLOW IVP PRN ×4 (05:10→23:03)
[2022-11-18 06:24] LABS: #Eosinphils 0.1 thou/uL (0.0-0.7); #Monocytes 0.4 thou/uL (0.11-0.59); #Neutrophils 1.7 thou/uL (1.40-6.50); %Basophils 0.8 % (0.0-1.0); %Monocytes 8.3 % (0.0-10.0); %Neutrophils 32.7 % (42.0-75.0); Hematocrit 28.1 % (36.0-47.0); Hemoglobin 8.7 g/dL (12.0-16.0); Mean Corpuscular Volume 96.9 fl (78.0-98.0); Mean Platelet Volume 11.7 fL (7.4-10.4); Platelet Count 227 10x3/uL (130-400); RBC Distribution Width 14.9 % (11.5-14.5); White Blood Cell (WBC) Count 5.1 10x3/uL (4.8-10.8)
[2022-11-18 06:49] LABS: Anion Gap 11 mmol/L (10-20); BUN (Urea Nitrogen) 9 mg/dL (9.8-20.1); Calc. Creatinine Clearance 117 mL/min (70-130); Calcium 8.4 mg/dL (7.8-10.44); Carbon Dioxide 27 mmol/L (22-29); Chloride 106 mmol/L (98-107); Estimated GFR 94; Glucose 134 mg/dL (70-105); Potassium 3.1 mmol/L (3.5-5.1); Sodium 141 mmol/L (136-145)
[2022-11-18] MEDS ORDERED: Potassium Chloride 20 MEQ TAB PO SCH (08:00)
[2022-11-18] MEDS: Pantoprazole 40 MG VIAL IVP SCH ×2 (08:52→20:59)
[2022-11-18] MEDS: Sucralfate 1 GM/10 ML UDCUP PO SCH ×2 (08:52→20:59)
[2022-11-18] MEDS: Polyethylene Glycol 3350 17 GM Packet PO SCH (08:52)
[2022-11-18] MEDS ORDERED: Gabapentin 300 MG CAP PO SCH (09:00)
[2022-11-18] MEDS: Gabapentin 400 MG CAP PO SCH ×2 (16:08→20:59)
[2022-11-18] MEDS ORDERED: GoLYTELY 4,000 ml Bottle PO SCH (17:00)
[2022-11-18] MEDS: Escitalopram Oxalate 20 mg Tablet PO SCH (20:59)
[2022-11-18] MEDS: Loratadine 10 MG TAB PO SCH (20:59)
[2022-11-18] MEDS ORDERED: Loratadine 10 MG TAB PO SCH (21:00)
[2022-11-18] MEDS: Acetaminophen 325 MG TAB PO PRN (21:00)
[2022-11-19] MEDS: Polyethylene Glycol 3350 17 GM Packet PO SCH (07:56)
[2022-11-19] MEDS: Pantoprazole 40 MG VIAL IVP SCH ×2 (07:56→20:20)
[2022-11-19] MEDS: Gabapentin 400 MG CAP PO SCH ×3 (07:56→20:14)
[2022-11-19] MEDS: Spironolactone 25 MG TAB PO SCH (07:57)
[2022-11-19] MEDS: Amiodarone 200 MG TAB PO SCH (07:57)
[2022-11-19] MEDS: fentaNYL 50 mcg/mL 1 mL Vial SLOW IVP PRN ×3 (07:57→20:09)
[2022-11-19] MEDS: Sucralfate 1 GM/10 ML UDCUP PO SCH ×2 (08:03→20:13)
[2022-11-19 10:16] LABS: #Eosinphils 0.1 thou/uL (0.0-0.7); #Monocytes 0.4 thou/uL (0.11-0.59); #Neutrophils 2.5 thou/uL (1.40-6.50); %Basophils 0.9 % (0.0-1.0); %Eosinophils 2.3 % (0.0-10.0); %Monocytes 8.5 % (0.0-10.0); %Neutrophils 57.1 % (42.0-75.0); Hematocrit 26.6 % (36.0-47.0); Hemoglobin 8.4 g/dL (12.0-16.0); Mean Corpuscular HGB CONC 31.6 g/dL (32.0-36.0); Mean Corpuscular Hemoglobin 29.6 pg (27.0-31.0); Mean Corpuscular Volume 93.7 fl (78.0-98.0); Mean Platelet Volume 11.7 fL (7.4-10.4); Platelet Count 266 10x3/uL (130-400); RBC Distribution Width 14.9 % (11.5-14.5); Red Blood Cell (RBC) Count 2.84 mill/uL (4.20-5.40); White Blood Cell (WBC) Count 4.4 10x3/uL (4.8-10.8)
[2022-11-19 10:45] LABS: Anion Gap 11 mmol/L (10-20); BUN (Urea Nitrogen) 13 mg/dL (9.8-20.1); Calc. Creatinine Clearance 111 mL/min (70-130); Calcium 8.7 mg/dL (7.8-10.44); Carbon Dioxide 24 mmol/L (22-29); Chloride 108 mmol/L (98-107); Estimated GFR 88; Glucose 208 mg/dL (70-105); Potassium 3.4 mmol/L (3.5-5.1); Sodium 140 mmol/L (136-145)
[2022-11-19] MEDS ORDERED: Potassium Chloride 20 MEQ TAB PO SCH (13:45)
[2022-11-19] MEDS: Acetaminophen 325 MG TAB PO PRN (17:40)
[2022-11-19] MEDS: Loratadine 10 MG TAB PO SCH (20:14)
[2022-11-19] MEDS: Escitalopram Oxalate 20 mg Tablet PO SCH (20:14)
[2022-11-20] MEDS: Ondansetron PF 4 MG/2 ML Vial IVP PRN ×2 (00:18→22:11)
[2022-11-20] MEDS: fentaNYL 50 mcg/mL 1 mL Vial SLOW IVP PRN ×3 (02:02→20:37)
[2022-11-20] MEDS ORDERED: Promethazine HCl 25 MG/ML VIAL IM PRN (09:02)
[2022-11-20] MEDS ORDERED: Ondansetron HCl/PF 4 MG/2 ML Vial IVP PRN (09:02)
[2022-11-20] MEDS ORDERED: PROPOFOL 200 MG/20 ML VIAL ONE (09:28)
[2022-11-20] MEDS ORDERED: Lidocaine 1% PF 5 ML VIAL ONE (09:28)
[2022-11-20] MEDS ORDERED: fentaNYL PF 100 MCG/2 ML SYRINGE ONE (09:45)
[2022-11-20] MEDS ORDERED: Ondansetron PF 4 MG/2 ML Vial ONE (09:52)
[2022-11-20] MEDS: Spironolactone 25 MG TAB PO SCH (10:17)
[2022-11-20] MEDS: Amiodarone 200 MG TAB PO SCH (10:17)
[2022-11-20] MEDS: Pantoprazole 40 MG VIAL IVP SCH ×2 (10:18→20:38)
[2022-11-20] MEDS: Gabapentin 400 MG CAP PO SCH ×3 (10:20→20:38)
[2022-11-20] MEDS: Sucralfate 1 GM/10 ML UDCUP PO SCH ×4 (10:45→20:38)
[2022-11-20] MEDS: Polyethylene Glycol 3350 17 GM Packet PO SCH (10:45)
[2022-11-20] MEDS: Escitalopram Oxalate 20 mg Tablet PO SCH (20:38)
[2022-11-20] MEDS: Loratadine 10 MG TAB PO SCH (20:38)
[2022-11-21] MEDS: fentaNYL 50 mcg/mL 1 mL Vial SLOW IVP PRN ×3 (04:45→17:37)
[2022-11-21] MEDS: Sucralfate 1 GM/10 ML UDCUP PO SCH ×4 (07:20→20:29)
[2022-11-21] MEDS: Ondansetron PF 4 MG/2 ML Vial IVP PRN ×3 (07:21→20:25)
[2022-11-21] MEDS: Polyethylene Glycol 3350 17 GM Packet PO SCH (07:24)
[2022-11-21] MEDS: Pantoprazole 40 MG VIAL IVP SCH ×2 (07:25→20:30)
[2022-11-21] MEDS: Gabapentin 400 MG CAP PO SCH ×3 (07:32→20:29)
[2022-11-21] MEDS: Spironolactone 25 MG TAB PO SCH (07:32)
[2022-11-21] MEDS: Amiodarone 200 MG TAB PO SCH (07:33)
[2022-11-21 10:41] LABS: Anion Gap 13 mmol/L (10-20); BUN (Urea Nitrogen) 9 mg/dL (9.8-20.1); Calc. Creatinine Clearance 108 mL/min (70-130); Carbon Dioxide 21 mmol/L (22-29); Chloride 108 mmol/L (98-107); Potassium 3.9 mmol/L (3.5-5.1); Sodium 138 mmol/L (136-145)
[2022-11-21 10:42] LABS: ALT (SGPT) 12 U/L (8-55); AST (SGOT) 14 U/L (5-34); Albumin 3.2 g/dL (3.5-5.0); Alkaline Phosphatase 80 U/L (40-110); Bilirubin, Total 0.3 mg/dL (0.2-1.2); Calcium 8.4 mg/dL (7.8-10.44); Estimated GFR 85; Globulin 2.3 g/dL (2.4-3.5); Glucose 195 mg/dL (70-105); Magnesium 1.8 mg/dL (1.6-2.6); Phosphorus 3.4 mg/dL (2.3-4.7); Protein, Total 5.5 g/dL (6.0-8.3)
[2022-11-21 11:21] LABS: #Eosinphils 0.1 thou/uL (0.0-0.7); #Monocytes 0.4 thou/uL (0.11-0.59); #Neutrophils 3.1 thou/uL (1.40-6.50); %Basophils 0.8 % (0.0-1.0); %Eosinophils 1.4 % (0.0-10.0); %Lymphocytes 31.1 % (21.0-51.0); %Monocytes 6.8 % (0.0-10.0); %Neutrophils 59.7 % (42.0-75.0); Hemoglobin 8.6 g/dL (12.0-16.0); Mean Corpuscular HGB CONC 31.9 g/dL (32.0-36.0); Mean Corpuscular Hemoglobin 30.1 pg (27.0-31.0); Mean Corpuscular Volume 94.4 fl (78.0-98.0); Mean Platelet Volume 11.1 fL (7.4-10.4); Platelet Count 283 10x3/uL (130-400); RBC Distribution Width 14.8 % (11.5-14.5); Red Blood Cell (RBC) Count 2.86 mill/uL (4.20-5.40); White Blood Cell (WBC) Count 5.2 10x3/uL (4.8-10.8)
[2022-11-21] MEDS ORDERED: Gabapentin 400 MG CAP PO SCH ×2 (15:02→15:15)
[2022-11-21] MEDS ORDERED: Gabapentin 300 MG CAP PO SCH (15:15)
[2022-11-21] MEDS: HYDROcodone/Acetaminophen 5/325 mg Tablet PO PRN ×2 (15:50→20:31)
[2022-11-21] MEDS: Gabapentin 300 MG CAP PO SCH (20:29)
[2022-11-21] MEDS: Loratadine 10 MG TAB PO SCH (20:30)
[2022-11-21] MEDS: Magnesium Oxide 400 MG TAB PO SCH (20:30)
[2022-11-21] MEDS ORDERED: Cyproheptadine 4 MG TAB PO SCH (21:00)
[2022-11-22 06:33] LABS: #Eosinphils 0.1 thou/uL (0.0-0.7); #Monocytes 0.4 thou/uL (0.11-0.59); #Neutrophils 1.6 thou/uL (1.40-6.50); %Basophils 0.8 % (0.0-1.0); %Eosinophils 2.8 % (0.0-10.0); %Lymphocytes 55.2 % (21.0-51.0); %Monocytes 8.1 % (0.0-10.0); %Neutrophils 32.9 % (42.0-75.0); Hematocrit 28.7 % (36.0-47.0); Mean Corpuscular HGB CONC 31.4 g/dL (32.0-36.0); Mean Corpuscular Hemoglobin 29.7 pg (27.0-31.0); Mean Corpuscular Volume 94.7 fl (78.0-98.0); Mean Platelet Volume 11.4 fL (7.4-10.4); Platelet Count 281 10x3/uL (130-400); RBC Distribution Width 14.8 % (11.5-14.5); Red Blood Cell (RBC) Count 3.03 mill/uL (4.20-5.40)
[2022-11-22 07:02] LABS: Anion Gap 11 mmol/L (10-20); BUN (Urea Nitrogen) 9 mg/dL (9.8-20.1); Calc. Creatinine Clearance 103 mL/min (70-130); Calcium 8.8 mg/dL (7.8-10.44); Carbon Dioxide 28 mmol/L (22-29); Chloride 109 mmol/L (98-107); Estimated GFR 81; Glucose 122 mg/dL (70-105); Potassium 3.8 mmol/L (3.5-5.1); Sodium 144 mmol/L (136-145)
[2022-11-22] MEDS: Sucralfate 1 GM/10 ML UDCUP PO SCH ×2 (08:00→11:55)
[2022-11-22] MEDS ORDERED: Empagliflozin 25 MG TAB PO SCH (09:00)
[2022-11-22] MEDS ORDERED: Citalopram 20 MG TAB PO SCH (09:00)
[2022-11-22] MEDS: Amiodarone 200 MG TAB PO SCH (09:09)
[2022-11-22] MEDS: Spironolactone 25 MG TAB PO SCH (09:09)
[2022-11-22] MEDS: Magnesium Oxide 400 MG TAB PO SCH (09:09)
[2022-11-22] MEDS: Gabapentin 300 MG CAP PO SCH (09:10)
[2022-11-22] MEDS: Gabapentin 400 MG CAP PO SCH (09:10)
[2022-11-22] MEDS: Pantoprazole 40 MG VIAL IVP SCH (09:11)
[2022-11-22] MEDS: Polyethylene Glycol 3350 17 GM Packet PO SCH (09:12)
[2022-11-22] MEDS: HYDROcodone/Acetaminophen 5/325 mg Tablet PO PRN (09:16)
[2022-11-22] MEDS: Ondansetron PF 4 MG/2 ML Vial IVP PRN (10:26)
[2022-11-22] MEDS: Acetaminophen 325 MG TAB PO PRN (11:57)
[2022-11-22 13:15] VITALS: BP 147/66; TEMP 98
== END 2022-11-22 13:23 | disposition home or self-care (01) | DRG 381 ==
LOC: ERS 22:58 → ERHOLD 11-17 07:38 → T4-B 11-17 13:20 → OBSVTOIN 11-18 13:10
PROVIDERS: ADMIT Internal Medicine; ATTEND Family Medicine
PROC: 0DJ08ZZ Inspection of Upper Intestinal Tract, Via Natural or Artificial Opening Endoscopic (ICD-10-PCS; principal; 2022-11-20)
DX: K28.9 Gastrojejunal ulcer, unspecified as acute or chronic, without hemorrhage or perforation (principal); I50.32 Chronic diastolic (congestive) heart failure; I25.10 Atherosclerotic heart disease of native coronary artery without angina pectoris; I48.91 Unspecified atrial fibrillation; E11.40 Type 2 diabetes mellitus with diabetic neuropathy, unspecified; E78.5 Hyperlipidemia, unspecified; I11.0 Hypertensive heart disease with heart failure; G43.909 Migraine, unspecified, not intractable, without status migrainosus; G47.33 Obstructive sleep apnea (adult) (pediatric); F41.9 Anxiety disorder, unspecified; E87.6 Hypokalemia; F43.10 Post-traumatic stress disorder, unspecified; K59.00 Constipation, unspecified; E66.9 Obesity, unspecified; D63.8 Anemia in other chronic diseases classified elsewhere; T78.40XA Allergy, unspecified, initial encounter; G25.81 Restless legs syndrome; K64.9 Unspecified hemorrhoids; Z88.0 Allergy status to penicillin; Z88.2 Allergy status to sulfonamides; Z88.8 Allergy status to other drugs, medicaments and biological substances; Z88.1 Allergy status to other antibiotic agents; Z91.041 Radiographic dye allergy status; Z91.040 Latex allergy status; Z91.010 Allergy to peanuts; Z79.899 Other long term (current) drug therapy; Z79.4 Long term (current) use of insulin; Z79.01 Long term (current) use of anticoagulants; Z86.73 Personal history of transient ischemic attack (TIA), and cerebral infarction without residual deficits; Z90.49 Acquired absence of other specified parts of digestive tract; Z95.1 Presence of aortocoronary bypass graft; Z98.890 Other specified postprocedural states; Z98.84 Bariatric surgery status; I25.2 Old myocardial infarction; Z68.34 Body mass index [BMI] 34.0-34.9, adult; Z88.5 Allergy status to narcotic agent; Z79.02 Long term (current) use of antithrombotics/antiplatelets; Z95.5 Presence of coronary angioplasty implant and graft; Z85.42 Personal history of malignant neoplasm of other parts of uterus; Z92.21 Personal history of antineoplastic chemotherapy; Z92.3 Personal history of irradiation; Z90.81 Acquired absence of spleen
CPT/HCPCS: 36415; 36416; 74177; 80048; 80053; 83690; 83735; 84100; 85025; 85610; 85730; 86850; 86900; 86901; 93005; 96374; 96375; 96376; C9113; G0378; J1200; J2405; J2704; J2920; J3010; J7120; Q9967; S0028

== ENCOUNTER 2023-02-01 19:50 | Observation (INO) | payer BC, MEDICARE ==
[2023-02-01] MEDS ORDERED: Nitroglycerin 2% Ointment 1 INCH/1 GM Packet ONE (20:11)
[2023-02-01] MEDS ORDERED: Dextrose 50% Abboject 50 ML SYRINGE ONE (20:51)
[2023-02-01] MEDS ORDERED: fentaNYL 50 mcg/mL 1 mL Vial ONE (20:51)
[2023-02-01] MEDS ORDERED: Acetaminophen 500 MG TAB ONE (20:52)
[2023-02-01] MEDS ORDERED: dilTIAZem 25 MG/5 ML VIAL ONE (20:54)
[2023-02-01 21:13] LABS: #Basophils 0.1 thou/uL (0.0-0.2); #Eosinphils 0.2 thou/uL (0.0-0.7); #Monocytes 0.8 thou/uL (0.11-0.59); #Neutrophils 4.3 thou/uL (1.40-6.50); %Basophils 0.5 % (0.0-1.0); %Eosinophils 2.5 % (0.0-10.0); %Monocytes 8.4 % (0.0-10.0); %Neutrophils 44.4 % (42.0-75.0); Hemoglobin 11.4 g/dL (12.0-16.0); Mean Corpuscular HGB CONC 32.6 g/dL (32.0-36.0); Mean Corpuscular Hemoglobin 27.5 pg (27.0-31.0); Mean Corpuscular Volume 84.3 fl (78.0-98.0); Mean Platelet Volume 10.7 fL (7.4-10.4); Platelet Count 309 10x3/uL (130-400); RBC Distribution Width 14.2 % (11.5-14.5); Red Blood Cell (RBC) Count 4.15 mill/uL (4.20-5.40); White Blood Cell (WBC) Count 9.7 10x3/uL (4.8-10.8)
[2023-02-01 21:39] LABS: ALT (SGPT) 11 U/L (8-55); AST (SGOT) 13 U/L (5-34); Albumin 4.2 g/dL (3.5-5.0); Alkaline Phosphatase 109 U/L (40-110); Anion Gap 10 mmol/L (10-20); BUN (Urea Nitrogen) 10 mg/dL (9.8-20.1); Bilirubin, Total 0.2 mg/dL (0.2-1.2); Calc. Creatinine Clearance 0 mL/min (70-130); Calcium 8.9 mg/dL (7.8-10.44); Carbon Dioxide 26 mmol/L (22-29); Chloride 106 mmol/L (98-107); Estimated GFR 97; Globulin 2.7 g/dL (2.4-3.5); Glucose 179 mg/dL (70-105); Lipase 30 U/L (8-78); Potassium 2.8 mmol/L (3.5-5.1); Protein, Total 6.9 g/dL (6.0-8.3); Sodium 139 mmol/L (136-145); Troponin I Less than 0.010 ng/mL (< 0.028)
[2023-02-01] MEDS ORDERED: diphenhydrAMINE 50 MG/ML VIAL ONE (21:42)
[2023-02-01] MEDS ORDERED: Famotidine/PF 20 mg/2ml Vial ONE (21:43)
[2023-02-01] MEDS ORDERED: methylPREDNISolone Sod Succ 40 MG VIAL ONE (21:43)
[2023-02-01] MEDS ORDERED: Potassium Chloride 20 MEQ TAB ONE (21:45)
[2023-02-01] MEDS ORDERED: hydrALAZINE 20 MG/ML VIAL ONE (22:21)
[2023-02-02] MEDS ORDERED: Ondansetron ODT 4 MG TAB PO PRN (01:57)
[2023-02-02] MEDS ORDERED: Acetaminophen 325 MG TAB PO PRN (01:57)
[2023-02-02] MEDS ORDERED: Glucagon 1 MG/ML KIT IM PRN (02:00)
[2023-02-02] MEDS ORDERED: Dextrose 5% in Water 1,000 ML IV PRN (02:00)
[2023-02-02] MEDS ORDERED: Dextrose 50% Abboject 50 ML SYRINGE SLOW IVP PRN (02:00)
[2023-02-02] MEDS ORDERED: Lidocaine 2% Viscous Solution 10 ML, Aluminum & Magnesium Hydroxide 30 ML SSW SCH (03:15)
[2023-02-02 03:23] LABS: Hemoglobin A1c 7.2 % (4.0-6.0)
[2023-02-02 03:39] LABS: Calcium 9.3 mg/dL (7.8-10.44); Chloride 107 mmol/L (98-107); Sodium 138 mmol/L (136-145)
[2023-02-02 03:40] LABS: Glucose 77 mg/dL (70-105)
[2023-02-02 03:41] LABS: Anion Gap 14 mmol/L (10-20); Carbon Dioxide 21 mmol/L (22-29)
[2023-02-02 03:43] LABS: Calc. Creatinine Clearance 0 mL/min (70-130); Estimated GFR 103
[2023-02-02 03:44] LABS: BUN (Urea Nitrogen) 8 mg/dL (9.8-20.1); Troponin I Less than 0.010 ng/mL (< 0.028)
[2023-02-02 03:53] VITALS: BMI 34.3
[2023-02-02] MEDS ORDERED: Dextrose 5 % And 0.9 % NaCl 1,000 ML IV SCH (04:15)
[2023-02-02 05:26] LABS: Magnesium 1.9 mg/dL (1.6-2.6)
[2023-02-02 05:29] LABS: Troponin I Less than 0.010 ng/mL (< 0.028)
[2023-02-02] MEDS: Gabapentin 300 MG CAP PO SCH ×3 (09:21→20:31)
[2023-02-02] MEDS: Gabapentin 400 MG CAP PO SCH ×3 (09:22→20:31)
[2023-02-02] MEDS: Furosemide 20 MG TAB PO SCH (09:22)
[2023-02-02] MEDS: Sucralfate 1 GM TAB PO SCH ×4 (09:22→20:32)
[2023-02-02] MEDS: Empagliflozin 25 MG TAB PO SCH (09:23)
[2023-02-02] MEDS ORDERED: traMADol HCl 50 MG TAB PO PRN (16:02)
[2023-02-02] MEDS ORDERED: HumaLOG 300 UNITS/3 ML VIAL SC PRN ×2 (18:15→22:15)
[2023-02-02] MEDS ORDERED: Escitalopram Oxalate 20 mg Tablet PO SCH (22:45)
[2023-02-02] MEDS ORDERED: Cyproheptadine 4 MG TAB PO SCH (22:45)
[2023-02-02] MEDS: fentaNYL 50 mcg/mL 1 mL Vial SLOW IVP PRN (23:29)
[2023-02-03 05:13] LABS: Hematocrit 32.6 % (36.0-47.0); Hemoglobin 10.4 g/dL (12.0-16.0)
[2023-02-03] MEDS ORDERED: Losartan 25 MG TAB PO SCH (09:00)
[2023-02-03] MEDS: Gabapentin 400 MG CAP PO SCH ×2 (09:38→14:04)
[2023-02-03] MEDS: Gabapentin 300 MG CAP PO SCH ×2 (09:38→14:07)
[2023-02-03] MEDS: Furosemide 20 MG TAB PO SCH (09:38)
[2023-02-03] MEDS: Sucralfate 1 GM TAB PO SCH ×2 (09:39→14:09)
[2023-02-03] MEDS: Empagliflozin 25 MG TAB PO SCH (09:42)
[2023-02-03] MEDS: fentaNYL 50 mcg/mL 1 mL Vial SLOW IVP PRN (15:17)
[2023-02-03 16:25] VITALS: BP 173/74; TEMP 98.1
[2023-02-03] MEDS ORDERED: Escitalopram Oxalate 20 mg Tablet PO SCH (21:00)
[2023-02-03] MEDS ORDERED: Cyproheptadine 4 MG TAB PO SCH (21:00)
== END 2023-02-03 16:23 | disposition home or self-care (01) ==
LOC: ERS 19:50 → 2SW 02-02 00:49
PROVIDERS: ADMIT Student in an Organized Health Care Education/Training Program; ATTEND Family Medicine
DX: I10 Essential (primary) hypertension (principal); R07.9 Chest pain, unspecified; I08.1 Rheumatic disorders of both mitral and tricuspid valves; I25.10 Atherosclerotic heart disease of native coronary artery without angina pectoris; E11.649 Type 2 diabetes mellitus with hypoglycemia without coma; E87.6 Hypokalemia; K21.9 Gastro-esophageal reflux disease without esophagitis; Z91.041 Radiographic dye allergy status; Z88.1 Allergy status to other antibiotic agents; Z88.0 Allergy status to penicillin; Z88.5 Allergy status to narcotic agent; Z88.8 Allergy status to other drugs, medicaments and biological substances; Z90.49 Acquired absence of other specified parts of digestive tract; Z98.84 Bariatric surgery status; Z91.040 Latex allergy status; Z88.2 Allergy status to sulfonamides; Z91.010 Allergy to peanuts; Z95.1 Presence of aortocoronary bypass graft
CPT/HCPCS: 36415; 36416; 71045; 71275; 80048; 80053; 83036; 83690; 83735; 83880; 84484; 85014; 85018; 85025; 85379; 93005; 93306; 96374; 96375; 96376; G0378; J0360; J1200; J1815; J2920; J3010; J7042; J7999; Q9967; S0028

== ENCOUNTER 2023-03-20 17:42 | Emergency (ER) | payer BC, MEDICARE ==
[2023-03-20 18:27] LABS: #Basophils 0.1 thou/uL (0.0-0.2); #Eosinphils 0.1 thou/uL (0.0-0.7); #Monocytes 0.6 thou/uL (0.11-0.59); #Neutrophils 4.7 thou/uL (1.40-6.50); %Basophils 0.6 % (0.0-1.0); %Eosinophils 0.7 % (0.0-10.0); %Lymphocytes 34.9 % (21.0-51.0); %Monocytes 7.4 % (0.0-10.0); Hematocrit 44.2 % (36.0-47.0); Hemoglobin 14.4 g/dL (12.0-16.0); Mean Corpuscular HGB CONC 32.6 g/dL (32.0-36.0); Mean Corpuscular Volume 82.9 fl (78.0-98.0); Mean Platelet Volume 10.8 fL (7.4-10.4); Platelet Count 336 10x3/uL (130-400); RBC Distribution Width 14.9 % (11.5-14.5); Red Blood Cell (RBC) Count 5.33 mill/uL (4.20-5.40); White Blood Cell (WBC) Count 8.4 10x3/uL (4.8-10.8)
[2023-03-20 18:35] LABS: Bilirubin Negative (Negative); Blood, Urine Negative (Negative); CAUTI Indications for Culture Pelvic or flank pain; Clarity Turbid (Clear); Glucose, Urine (Dipstick) 500 mg/dL (Negative); Ketone, Urine Trace mg/dL (Negative); Leukocyte 25 Leu/uL (Negative); Nitrite Negative (Negative); Protein, Urine (Dipstick) 50 mg/dL (Neg-Trace); RBC/HPF 0-3 HPF (0-3); Specific Gravity, Urine 1.037 (1.002-1.036); Urobilinogen 3 mg/dL (Less than 2); pH, Urine 5.5 (5.0-9.0)
[2023-03-20 18:37] LABS: Bacteria/HPF 1+ HPF (None Seen); Urine Culture Reflex Yes Yes
[2023-03-20 18:50] LABS: ALT (SGPT) 12 U/L (8-55); AST (SGOT) 21 U/L (5-34); Albumin 4.5 g/dL (3.5-5.0); Alkaline Phosphatase 150 U/L (40-110); Anion Gap 18 mmol/L (10-20); BUN (Urea Nitrogen) 22 mg/dL (9.8-20.1); Bilirubin, Total 0.5 mg/dL (0.2-1.2); Calc. Creatinine Clearance 0 mL/min (70-130); Calcium 9.6 mg/dL (7.8-10.44); Carbon Dioxide 21 mmol/L (22-29); Chloride 102 mmol/L (98-107); Estimated GFR 81; Globulin 3.6 g/dL (2.4-3.5); Glucose 168 mg/dL (70-105); Potassium 3.9 mmol/L (3.5-5.1); Protein, Total 8.1 g/dL (6.0-8.3); Sodium 137 mmol/L (136-145)
[2023-03-20] MEDS ORDERED: HYDROmorphone 0.5 MG/0.5 ML SYRINGE ONE (20:49)
[2023-03-20] MEDS ORDERED: Ondansetron PF 4 MG/2 ML Vial ONE (20:50)
== END 2023-03-20 22:30 | disposition home or self-care (01) ==
LOC: ERS 17:42
DX: R82.71 Bacteriuria (principal); I11.0 Hypertensive heart disease with heart failure; I50.9 Heart failure, unspecified; E11.9 Type 2 diabetes mellitus without complications; Z79.4 Long term (current) use of insulin
CPT/HCPCS: 36415; 74176; 80053; 81001; 83690; 85025; 87086; 96374; 96375; J1170; J2405

== ENCOUNTER 2023-03-26 12:09 | Inpatient (IN) | payer BC, MEDICARE ==
[2023-03-26] MEDS ORDERED: methylPREDNISolone Sod Succ 40 MG VIAL ONE (12:13)
[2023-03-26] MEDS ORDERED: diphenhydrAMINE 50 MG/ML VIAL ONE (12:13)
[2023-03-26] MEDS ORDERED: Famotidine/PF 20 mg/2ml Vial ONE (12:13)
[2023-03-26] MEDS ORDERED: methylPREDNISolone Sod Succ/PF 125 MG/2 ML VIAL ONE (12:25)
[2023-03-26 12:35] LABS: #Basophils 0.1 thou/uL (0.0-0.2); #Eosinphils 0.3 thou/uL (0.0-0.7); #Monocytes 0.6 thou/uL (0.11-0.59); #Neutrophils 2.8 thou/uL (1.40-6.50); %Basophils 0.8 % (0.0-1.0); %Lymphocytes 42.4 % (21.0-51.0); %Monocytes 9.7 % (0.0-10.0); %Neutrophils 42.9 % (42.0-75.0); Hematocrit 38.5 % (36.0-47.0); Hemoglobin 12.4 g/dL (12.0-16.0); Mean Corpuscular HGB CONC 32.2 g/dL (32.0-36.0); Mean Corpuscular Hemoglobin 27.3 pg (27.0-31.0); Mean Corpuscular Volume 84.6 fl (78.0-98.0); Platelet Count 300 10x3/uL (130-400); RBC Distribution Width 14.8 % (11.5-14.5); Red Blood Cell (RBC) Count 4.55 mill/uL (4.20-5.40); White Blood Cell (WBC) Count 6.5 10x3/uL (4.8-10.8)
[2023-03-26 12:49] LABS: Prothrombin Time 13.5 sec (12.0-14.7)
[2023-03-26 12:50] LABS: PTT 24.7 sec (22.9-36.1)
[2023-03-26 12:59] LABS: ALT (SGPT) 11 U/L (8-55); AST (SGOT) 16 U/L (5-34); Albumin 4.4 g/dL (3.5-5.0); Alkaline Phosphatase 136 U/L (40-110); Anion Gap 16 mmol/L (10-20); BUN (Urea Nitrogen) 14 mg/dL (9.8-20.1); Bilirubin, Total 0.5 mg/dL (0.2-1.2); Calc. Creatinine Clearance 0 mL/min (70-130); Calcium 9.6 mg/dL (7.8-10.44); Carbon Dioxide 22 mmol/L (22-29); Chloride 104 mmol/L (98-107); Estimated GFR 91; Globulin 2.9 g/dL (2.4-3.5); Glucose 145 mg/dL (70-105); Potassium 3.4 mmol/L (3.5-5.1); Protein, Total 7.3 g/dL (6.0-8.3); Sodium 139 mmol/L (136-145)
[2023-03-26 13:03] LABS: Troponin I Less than 0.010 ng/mL (< 0.028)
[2023-03-26] MEDS ORDERED: Metoclopramide HCl 10 MG/2 ML VIAL ONE (13:23)
[2023-03-26] MEDS ORDERED: Iopamidol-370 76% 500 ML MDV (1 ML CHARGE) ONE (13:46)
[2023-03-26] MEDS ORDERED: Ketorolac Tromethamine 30 MG/ML VIAL ONE (14:10)
[2023-03-26] MEDS ORDERED: Dextrose 5% in Water 1,000 ML IV PRN (17:06)
[2023-03-26] MEDS ORDERED: Dextrose 50% Abboject 50 ML SYRINGE SLOW IVP PRN (17:06)
[2023-03-26] MEDS ORDERED: Insulin Regular 300 UNITS/3 ML VIAL SC PRN ×2 (17:06)
[2023-03-26] MEDS ORDERED: Glucagon 1 MG/ML KIT IM PRN (17:06)
[2023-03-26] MEDS ORDERED: Aspirin 300 MG Suppository PR SCH (17:30)
[2023-03-26] MEDS ORDERED: SUMAtriptan Succinate 6 MG/0.5 ML VIAL SC SCH (17:45)
[2023-03-26 17:55] VITALS: BMI 30.6
[2023-03-26] MEDS: Lactated Ringer's 1,000 ML IV SCH (18:41)
[2023-03-26 19:40] LABS: Prothrombin Time 13.9 sec (12.0-14.7)
[2023-03-26 19:41] LABS: PTT 30.1 sec (22.9-36.1)
[2023-03-26 19:44] LABS: D-Dimer Test 0.73 *mcg/mL (0.27-0.43)
[2023-03-26] MEDS: Pantoprazole 40 MG VIAL IVP SCH (21:49)
[2023-03-26] MEDS: Escitalopram Oxalate 20 mg Tablet PO SCH (21:49)
[2023-03-26] MEDS: SUMAtriptan Succinate 6 MG/0.5 ML VIAL SC PRN (21:57)
[2023-03-26] MEDS: Insulin Glargine 30 UNITS/0.3 ML VIAL SC SCH (22:03)
[2023-03-27] MEDS: Cyproheptadine 4 MG TAB PO SCH ×2 (00:26→20:50)
[2023-03-27] MEDS: Lactated Ringer's 1,000 ML IV SCH ×3 (02:47→21:00)
[2023-03-27 06:27] LABS: #Monocytes 0.5 thou/uL (0.11-0.59); #Neutrophils 4.7 thou/uL (1.40-6.50); %Basophils 0.4 % (0.0-1.0); %Eosinophils 0.5 % (0.0-10.0); %Monocytes 6.5 % (0.0-10.0); %Neutrophils 60.3 % (42.0-75.0); Hemoglobin 11.2 g/dL (12.0-16.0); Mean Corpuscular HGB CONC 32.9 g/dL (32.0-36.0); Mean Corpuscular Hemoglobin 27.4 pg (27.0-31.0); Mean Corpuscular Volume 83.1 fl (78.0-98.0); Mean Platelet Volume 10.9 fL (7.4-10.4); Platelet Count 277 10x3/uL (130-400); RBC Distribution Width 14.9 % (11.5-14.5); Red Blood Cell (RBC) Count 4.09 mill/uL (4.20-5.40); White Blood Cell (WBC) Count 7.8 10x3/uL (4.8-10.8)
[2023-03-27 06:37] LABS: Hemoglobin A1c 7.3 % (4.0-6.0)
[2023-03-27 06:56] LABS: Anion Gap 12 mmol/L (10-20); BUN (Urea Nitrogen) 17 mg/dL (9.8-20.1); Calc. Creatinine Clearance 113 mL/min (70-130); Calcium 9.1 mg/dL (7.8-10.44); Carbon Dioxide 24 mmol/L (22-29); Cardiac Risk 3.9 (Less than 4.5); Chloride 108 mmol/L (98-107); Cholesterol 154 mg/dl (< 200 Desired); Estimated GFR 101; Glucose 124 mg/dL (70-105); HDL Cholesterol 39 mg/dL (>60 Neg Risk); LDL Cholesterol, Calculated 96 mg/dL; Potassium 3.6 mmol/L (3.5-5.1); Sodium 140 mmol/L (136-145); Triglycerides 96 mg/dL (Less than 150)
[2023-03-27] MEDS: Empagliflozin 25 MG TAB PO SCH (09:00)
[2023-03-27] MEDS: Furosemide 20 MG TAB PO SCH (09:00)
[2023-03-27] MEDS ORDERED: Aspirin 81 mg Enteric Coated Tablet PO SCH (10:30)
[2023-03-27] MEDS ORDERED: Diazepam 2 MG TAB PO SCH (10:31)
[2023-03-27 10:55] LABS: Cardiac Risk 4.4 (Less than 4.5)
[2023-03-27] MEDS: SUMAtriptan Succinate 6 MG/0.5 ML VIAL SC PRN (13:06)
[2023-03-27] MEDS ORDERED: GABAPENTIN 250 MG/5 ML PO SCH (15:00)
[2023-03-27] MEDS: Gabapentin 300 MG CAP PO SCH ×2 (15:53→20:51)
[2023-03-27] MEDS ORDERED: diphenhydrAMINE 25 MG CAP PO PRN (15:54)
[2023-03-27] MEDS: Gabapentin 400 MG CAP PO SCH ×2 (15:54→20:51)
[2023-03-27] MEDS ORDERED: Metoclopramide HCl 10 MG/2 ML VIAL IVP SCH (16:00)
[2023-03-27] MEDS: Escitalopram Oxalate 20 mg Tablet PO SCH (20:49)
[2023-03-27] MEDS: Pantoprazole 40 MG VIAL IVP SCH (20:50)
[2023-03-27] MEDS: Insulin Glargine 30 UNITS/0.3 ML VIAL SC SCH (20:50)
[2023-03-28 04:48] LABS: #Basophils 0.1 thou/uL (0.0-0.2); #Eosinphils 0.4 thou/uL (0.0-0.7); #Monocytes 0.5 thou/uL (0.11-0.59); #Neutrophils 1.8 thou/uL (1.40-6.50); %Basophils 1.3 % (0.0-1.0); %Eosinophils 6.2 % (0.0-10.0); %Lymphocytes 54.3 % (21.0-51.0); %Monocytes 8.6 % (0.0-10.0); %Neutrophils 29.4 % (42.0-75.0); Hemoglobin 11.5 g/dL (12.0-16.0); Mean Corpuscular HGB CONC 30.3 g/dL (32.0-36.0); Mean Corpuscular Hemoglobin 27.2 pg (27.0-31.0); Mean Platelet Volume 11.5 fL (7.4-10.4); Platelet Count 241 10x3/uL (130-400); RBC Distribution Width 15.3 % (11.5-14.5); Red Blood Cell (RBC) Count 4.23 mill/uL (4.20-5.40)
[2023-03-28 04:50] LABS: Mean Corpuscular Volume 89.8 fl (78.0-98.0)
[2023-03-28] MEDS: Lactated Ringer's 1,000 ML IV SCH (05:07)
[2023-03-28] MEDS: Furosemide 20 MG TAB PO SCH (08:41)
[2023-03-28] MEDS: Gabapentin 400 MG CAP PO SCH ×3 (08:41→21:18)
[2023-03-28] MEDS: Gabapentin 300 MG CAP PO SCH ×3 (08:41→21:19)
[2023-03-28] MEDS: Empagliflozin 25 MG TAB PO SCH (08:42)
[2023-03-28] MEDS: Aspirin 81 mg Enteric Coated Tablet PO SCH (08:42)
[2023-03-28] MEDS ORDERED: SODIUM CHLORIDE 0.9% IV SCH (09:15)
[2023-03-28] MEDS ORDERED: MAGNESIUM SULFATE IV SCH (09:15)
[2023-03-28] MEDS ORDERED: ADMIXTURE FEE CHEMO IV SCH (09:15)
[2023-03-28] MEDS ORDERED: methylPREDNISolone Sod Succ/PF 125 MG/2 ML VIAL IVP SCH (09:44)
[2023-03-28] MEDS ORDERED: Magnesium 2 GM/50 ML(in water) 2 GM in Premix 1 BAG IVPB SCH (10:00)
[2023-03-28 10:47] LABS: Anion Gap 15 mmol/L (10-20); BUN (Urea Nitrogen) 13 mg/dL (9.8-20.1); Calc. Creatinine Clearance 100 mL/min (70-130); Carbon Dioxide 24 mmol/L (22-29); Chloride 106 mmol/L (98-107); Estimated GFR 91; Glucose 139 mg/dL (70-105); Potassium 3.5 mmol/L (3.5-5.1); Sodium 141 mmol/L (136-145)
[2023-03-28] MEDS: SUMAtriptan Succinate 6 MG/0.5 ML VIAL SC PRN (14:24)
[2023-03-28] MEDS: Insulin Glargine 30 UNITS/0.3 ML VIAL SC SCH (21:15)
[2023-03-28] MEDS: Pantoprazole 40 MG VIAL IVP SCH (21:17)
[2023-03-28] MEDS: Escitalopram Oxalate 20 mg Tablet PO SCH (21:18)
[2023-03-28] MEDS: Cyproheptadine 4 MG TAB PO SCH (21:20)
[2023-03-29] MEDS: SUMAtriptan Succinate 6 MG/0.5 ML VIAL SC PRN (00:17)
[2023-03-29] MEDS ORDERED: Ondansetron ODT 4 MG TAB PO SCH (01:02)
[2023-03-29] MEDS ORDERED: Fioricet 325/50/40 mg Tablet PO SCH ×3 (01:16→14:13)
[2023-03-29 06:39] LABS: #Monocytes 0.8 thou/uL (0.11-0.59); #Neutrophils 4.8 thou/uL (1.40-6.50); %Basophils 0.4 % (0.0-1.0); %Eosinophils 0.4 % (0.0-10.0); %Lymphocytes 40.6 % (21.0-51.0); %Monocytes 7.9 % (0.0-10.0); %Neutrophils 50.4 % (42.0-75.0); Hematocrit 34.5 % (36.0-47.0); Hemoglobin 11.3 g/dL (12.0-16.0); Mean Corpuscular HGB CONC 32.8 g/dL (32.0-36.0); Mean Corpuscular Hemoglobin 27.4 pg (27.0-31.0); Mean Corpuscular Volume 83.5 fl (78.0-98.0); Platelet Count 283 10x3/uL (130-400); RBC Distribution Width 14.9 % (11.5-14.5); Red Blood Cell (RBC) Count 4.13 mill/uL (4.20-5.40); White Blood Cell (WBC) Count 9.6 10x3/uL (4.8-10.8)
[2023-03-29 07:02] LABS: Anion Gap 14 mmol/L (10-20); BUN (Urea Nitrogen) 14 mg/dL (9.8-20.1); Calc. Creatinine Clearance 100 mL/min (70-130); Carbon Dioxide 27 mmol/L (22-29); Chloride 105 mmol/L (98-107); Estimated GFR 91; Glucose 120 mg/dL (70-105); Potassium 3.2 mmol/L (3.5-5.1); Sodium 143 mmol/L (136-145)
[2023-03-29] MEDS ORDERED: methylPREDNISolone Sod Succ/PF 125 MG/2 ML VIAL IVP SCH (09:00)
[2023-03-29] MEDS ORDERED: Potassium Chloride 20 MEQ TAB PO SCH ×2 (09:00→13:45)
[2023-03-29] MEDS: Gabapentin 300 MG CAP PO SCH ×3 (09:02→22:03)
[2023-03-29] MEDS: Gabapentin 400 MG CAP PO SCH ×3 (09:02→22:02)
[2023-03-29] MEDS: Empagliflozin 25 MG TAB PO SCH (09:03)
[2023-03-29] MEDS: Aspirin 81 mg Enteric Coated Tablet PO SCH (09:03)
[2023-03-29] MEDS: Furosemide 20 MG TAB PO SCH (09:03)
[2023-03-29] MEDS ORDERED: Ondansetron ODT 4 MG TAB PO PRN (10:30)
[2023-03-29] MEDS: Ondansetron PF 4 MG/2 ML Vial IVP PRN ×2 (11:31→17:35)
[2023-03-29] MEDS ORDERED: diphenhydrAMINE 25 MG in Sodium Chloride 0.9% 50 ML IVPB SCH (14:15)
[2023-03-29] MEDS ORDERED: traMADol HCl 50 MG TAB PO SCH (14:15)
[2023-03-29] MEDS ORDERED: diphenhydrAMINE 50 MG/ML VIAL IVP SCH (14:30)
[2023-03-29] MEDS ORDERED: Acetaminophen 500 MG TAB PO SCH (20:15)
[2023-03-29] MEDS ORDERED: Dexamethasone 4 mg/ml Vial SLOW IVP SCH (20:30)
[2023-03-29] MEDS: Escitalopram Oxalate 20 mg Tablet PO SCH (21:58)
[2023-03-29] MEDS: Acetaminophen 500 MG TAB PO SCH (21:59)
[2023-03-29] MEDS: diphenhydrAMINE 50 MG/ML VIAL IVP SCH (22:01)
[2023-03-29] MEDS: Cyproheptadine 4 MG TAB PO SCH (22:02)
[2023-03-29] MEDS: Pantoprazole 40 MG VIAL IVP SCH (22:04)
[2023-03-29] MEDS: Insulin Glargine 30 UNITS/0.3 ML VIAL SC SCH (22:29)
[2023-03-30 06:05] LABS: #Monocytes 0.1 thou/uL (0.11-0.59); #Neutrophils 6.1 thou/uL (1.40-6.50); %Basophils 0.3 % (0.0-1.0); %Eosinophils 0.1 % (0.0-10.0); %Lymphocytes 20.3 % (21.0-51.0); %Monocytes 1.4 % (0.0-10.0); %Neutrophils 77.5 % (42.0-75.0); Hematocrit 39.2 % (36.0-47.0); Hemoglobin 12.3 g/dL (12.0-16.0); Mean Corpuscular HGB CONC 31.4 g/dL (32.0-36.0); Mean Platelet Volume 11.7 fL (7.4-10.4); Platelet Count 281 10x3/uL (130-400); Red Blood Cell (RBC) Count 4.56 mill/uL (4.20-5.40); White Blood Cell (WBC) Count 7.8 10x3/uL (4.8-10.8)
[2023-03-30 06:28] LABS: Anion Gap 16 mmol/L (10-20); BUN (Urea Nitrogen) 15 mg/dL (9.8-20.1); Calc. Creatinine Clearance 93 mL/min (70-130); Calcium 9.2 mg/dL (7.8-10.44); Carbon Dioxide 26 mmol/L (22-29); Chloride 105 mmol/L (98-107); Estimated GFR 83; Glucose 145 mg/dL (70-105); Potassium 4.1 mmol/L (3.5-5.1); Sodium 143 mmol/L (136-145)
[2023-03-30] MEDS: Acetaminophen 500 MG TAB PO SCH ×4 (08:27→22:41)
[2023-03-30] MEDS: diphenhydrAMINE 50 MG/ML VIAL IVP SCH ×4 (08:27→22:44)
[2023-03-30] MEDS: Empagliflozin 25 MG TAB PO SCH (10:42)
[2023-03-30] MEDS: Aspirin 81 mg Enteric Coated Tablet PO SCH (10:42)
[2023-03-30] MEDS: Gabapentin 300 MG CAP PO SCH ×3 (10:42→22:43)
[2023-03-30] MEDS: Furosemide 20 MG TAB PO SCH (10:43)
[2023-03-30] MEDS: Gabapentin 400 MG CAP PO SCH ×3 (10:43→22:42)
[2023-03-30 11:36] LABS: Campy jejuni + coli by PCR Negative (Negative); STEC Shiga Toxin 1+2 Negative (Negative); Salmonella spp. by PCR Negative (Negative); Shigella spp + EIEC by PCR Negative (Negative)
[2023-03-30] MEDS: SUMAtriptan Succinate 6 MG/0.5 ML VIAL SC PRN (12:30)
[2023-03-30] MEDS ORDERED: Cyclobenzaprine 10 MG TAB PO SCH (15:30)
[2023-03-30] MEDS: Ondansetron PF 4 MG/2 ML Vial IVP PRN (16:20)
[2023-03-30] MEDS: traMADol HCl 50 MG TAB PO PRN (18:35)
[2023-03-30] MEDS ORDERED: Lactated Ringer's 500 ML IV SCH (21:00)
[2023-03-30] MEDS: Escitalopram Oxalate 20 mg Tablet PO SCH (22:41)
[2023-03-30] MEDS: Cyproheptadine 4 MG TAB PO SCH (22:43)
[2023-03-30] MEDS: Pantoprazole 40 MG VIAL IVP SCH (22:44)
[2023-03-30] MEDS: Insulin Glargine 30 UNITS/0.3 ML VIAL SC SCH (22:44)
[2023-03-30] MEDS: Lactated Ringer's 1,000 ML IV SCH (22:54)
[2023-03-31 05:31] LABS: Anion Gap 12 mmol/L (10-20); BUN (Urea Nitrogen) 17 mg/dL (9.8-20.1); Calc. Creatinine Clearance 88 mL/min (70-130); Calcium 8.6 mg/dL (7.8-10.44); Carbon Dioxide 30 mmol/L (22-29); Chloride 103 mmol/L (98-107); Estimated GFR 78; Glucose 108 mg/dL (70-105); Potassium 3.4 mmol/L (3.5-5.1); Sodium 142 mmol/L (136-145)
[2023-03-31] MEDS: diphenhydrAMINE 50 MG/ML VIAL IVP SCH ×4 (05:43→21:13)
[2023-03-31] MEDS: Acetaminophen 500 MG TAB PO SCH ×3 (05:43→15:52)
[2023-03-31] MEDS ORDERED: Potassium Chloride 20 MEQ TAB PO SCH (06:15)
[2023-03-31] MEDS: Lactated Ringer's 1,000 ML IV SCH ×2 (08:43→18:29)
[2023-03-31] MEDS: Aspirin 81 mg Enteric Coated Tablet PO SCH (08:43)
[2023-03-31] MEDS: Empagliflozin 25 MG TAB PO SCH (08:44)
[2023-03-31] MEDS: Furosemide 20 MG TAB PO SCH (08:44)
[2023-03-31] MEDS: Gabapentin 300 MG CAP PO SCH ×3 (08:44→21:13)
[2023-03-31] MEDS: Gabapentin 400 MG CAP PO SCH ×3 (08:44→21:14)
[2023-03-31] MEDS: traMADol HCl 50 MG TAB PO PRN ×3 (08:50→23:09)
[2023-03-31] MEDS ORDERED: Verapamil 120 MG SR.TAB PO SCH ×2 (11:41→21:00)
[2023-03-31 12:22] LABS: HEX PHOS LA Tube 1 42.1 SEC; HEX PHOS LA Tube 2 39.7 SEC; Hexagonal Phospholipid Neut 2.5 SEC (0-8.0)
[2023-03-31] MEDS: SUMAtriptan Succinate 50 MG TAB PO PRN ×2 (18:28→23:10)
[2023-03-31] MEDS: Escitalopram Oxalate 20 mg Tablet PO SCH (21:13)
[2023-03-31] MEDS: Pantoprazole 40 MG VIAL IVP SCH (21:15)
[2023-03-31] MEDS: Insulin Glargine 30 UNITS/0.3 ML VIAL SC SCH (21:28)
[2023-04-01] MEDS: Ondansetron PF 4 MG/2 ML Vial IVP PRN (00:01)
[2023-04-01] MEDS: Cyproheptadine 4 MG TAB PO SCH (00:02)
[2023-04-01] MEDS: Acetaminophen 500 MG TAB PO SCH ×3 (02:03→15:22)
[2023-04-01] MEDS: diphenhydrAMINE 50 MG/ML VIAL IVP SCH ×3 (06:06→15:21)
[2023-04-01] MEDS: Lactated Ringer's 1,000 ML IV SCH (06:07)
[2023-04-01 08:22] VITALS: BP 127/80; TEMP 97.9
[2023-04-01] MEDS ORDERED: Verapamil 120 MG SR.TAB PO SCH (09:00)
[2023-04-01] MEDS: Gabapentin 400 MG CAP PO SCH ×2 (09:10→15:21)
[2023-04-01] MEDS: Furosemide 20 MG TAB PO SCH (09:10)
[2023-04-01] MEDS: Gabapentin 300 MG CAP PO SCH ×2 (09:11→15:20)
[2023-04-01] MEDS: Empagliflozin 25 MG TAB PO SCH (09:11)
[2023-04-01] MEDS: Aspirin 81 mg Enteric Coated Tablet PO SCH (09:11)
[2023-04-01] MEDS: traMADol HCl 50 MG TAB PO PRN (11:23)
[2023-04-01] MEDS ORDERED: Valproate Sodium 500 MG in Sodium Chloride 0.9% 100 ML IVPB SCH (12:00)
[2023-04-01 12:01] LABS: Anion Gap 13 mmol/L (10-20); BUN (Urea Nitrogen) 10 mg/dL (9.8-20.1); Calc. Creatinine Clearance 87 mL/min (70-130); Calcium 9.4 mg/dL (7.8-10.44); Carbon Dioxide 29 mmol/L (22-29); Chloride 103 mmol/L (98-107); Estimated GFR 77; Glucose 110 mg/dL (70-105); Magnesium 2.2 mg/dL (1.6-2.6); Phosphorus 4.3 mg/dL (2.3-4.7); Potassium 4.4 mmol/L (3.5-5.1); Sodium 141 mmol/L (136-145)
[2023-04-01 14:40] LABS: Cardiolipin IgA Ab 4.8 APL-U/mL (<14 Negative); Cardiolipin IgM Ab 3.2 MPL-U/mL (<10 Negative); EliA APS New Method **** NEW METHOD ****
[2023-04-02 17:13] LABS: Activated Protein C Resistance 3.2 ratio (.); ProthrombinG20210A Gene Fac 2 See below: (.)
== END 2023-04-01 17:27 | DRG 103 ==
LOC: ERS 12:09 → 2SE 17:38 → OBSVTOIN 03-28 11:10 → MSONC 03-31 15:26
PROVIDERS: ADMIT Family Medicine; ATTEND Family Medicine
DX: G43.409 Hemiplegic migraine, not intractable, without status migrainosus (principal); I50.32 Chronic diastolic (congestive) heart failure; F44.4 Conversion disorder with motor symptom or deficit; I25.10 Atherosclerotic heart disease of native coronary artery without angina pectoris; I11.0 Hypertensive heart disease with heart failure; E11.9 Type 2 diabetes mellitus without complications; E66.9 Obesity, unspecified; E78.5 Hyperlipidemia, unspecified; F43.10 Post-traumatic stress disorder, unspecified; G43.909 Migraine, unspecified, not intractable, without status migrainosus; E87.6 Hypokalemia; R19.7 Diarrhea, unspecified; Z88.8 Allergy status to other drugs, medicaments and biological substances; Z86.73 Personal history of transient ischemic attack (TIA), and cerebral infarction without residual deficits; Z98.890 Other specified postprocedural states; I25.2 Old myocardial infarction; Z95.5 Presence of coronary angioplasty implant and graft; Z79.4 Long term (current) use of insulin; Z88.6 Allergy status to analgesic agent; Z91.041 Radiographic dye allergy status; Z91.040 Latex allergy status; Z88.0 Allergy status to penicillin; Z88.2 Allergy status to sulfonamides; Z79.899 Other long term (current) drug therapy; Z90.49 Acquired absence of other specified parts of digestive tract; Z95.1 Presence of aortocoronary bypass graft; Z87.891 Personal history of nicotine dependence; Z68.30 Body mass index [BMI] 30.0-30.9, adult
CPT/HCPCS: 36415; 36416; 70450; 70496; 70498; 70551; 71045; 80048; 80053; 80061; 83036; 83090; 83735; 84100; 84439; 84443; 84484; 85025; 85300; 85303; 85305; 85307; 85379; 85598; 85610; 85730; 86147; 87324; 87449; 87505; 93005; 94760; 96365; 96375; C9113; J1100; J1200; J1815; J1885; J2405; J2765; J2920; J2930; J3030; J3475; J7120; Q0162; Q9967; S0028

== ENCOUNTER 2023-09-29 19:25 | Emergency (ER) | payer BC, MEDICARE ==
[2023-09-29] MEDS ORDERED: fentaNYL 50 mcg/mL 1 mL Vial ONE (19:47)
[2023-09-29] MEDS ORDERED: Metoclopramide HCl 10 MG (2 mL) VIAL ONE (19:48)
[2023-09-29] MEDS ORDERED: Ketorolac Tromethamine 30 MG (1 mL) VIAL ONE (19:48)
[2023-09-29 20:12] LABS: #Basophils 0.05 10x3/uL (0.0-0.2); %Basophils 0.8 % (0.0-1.0); %Eosinophils 1.4 % (0.0-10.0); %Lymphocytes 51.1 % (21.0-51.0); %Monocytes 8.1 % (0.0-10.0); %Neutrophils 38.4 % (42.0-75.0); Hematocrit 35.3 % (36.0-47.0); Hemoglobin 12.5 g/dL (12.0-16.0); Mean Corpuscular HGB CONC 35.4 g/dL (32.0-36.0); Mean Corpuscular Hemoglobin 28.5 pg (27.0-31.0); Mean Corpuscular Volume 80.6 fL (78.0-98.0); Platelet Count 306 10x3/uL (130-400); Red Blood Cell (RBC) Count 4.38 mill/uL (4.20-5.40)
[2023-09-29 20:25] LABS: ALT (SGPT) 9 U/L (8-55); AST (SGOT) 14 U/L (5-34); Albumin 3.5 g/dL (3.5-5.0); Alkaline Phosphatase 97 U/L (40-110); Anion Gap 14 mmol/L (10-20); BUN (Urea Nitrogen) 13 mg/dL (9.8-20.1); Bilirubin, Total 0.4 mg/dL (0.2-1.2); Calc. Creatinine Clearance 0 mL/min (70-130); Calcium 9.1 mg/dL (7.8-10.44); Carbon Dioxide 23 mmol/L (22-29); Chloride 105 mmol/L (98-107); Estimated GFR 101; Glucose 131 mg/dL (70-105); Potassium 2.9 mmol/L (3.5-5.1); Protein, Total 6.5 g/dL (6.0-8.3); Sodium 139 mmol/L (136-145)
[2023-09-29 20:26] LABS: Prothrombin Time 13.3 sec (12.0-14.7)
[2023-09-30] MEDS ORDERED: fentaNYL 50 mcg/mL 1 mL Vial ONE (00:10)
== END 2023-09-30 00:26 | disposition home or self-care (01) ==
LOC: ERS 19:25
DX: G43.409 Hemiplegic migraine, not intractable, without status migrainosus (principal); R29.700 NIHSS score 0; I25.10 Atherosclerotic heart disease of native coronary artery without angina pectoris; I25.2 Old myocardial infarction; I48.91 Unspecified atrial fibrillation; E11.9 Type 2 diabetes mellitus without complications; I11.0 Hypertensive heart disease with heart failure; I50.9 Heart failure, unspecified; Z79.4 Long term (current) use of insulin
CPT/HCPCS: 70450; 80053; 85025; 85610; 85730; 93005; 96374; 96375; 96376; J1885; J2765; J3010

== ENCOUNTER 2023-11-01 10:21 | Inpatient (IN) | payer BC, MEDICARE ==
[2023-11-01] MEDS ORDERED: diphenhydrAMINE 50 MG/ML VIAL ONE (11:04)
[2023-11-01] MEDS ORDERED: Metoclopramide HCl 10 MG (2 mL) VIAL ONE (11:04)
[2023-11-01] MEDS ORDERED: Aspirin Chewable 81 MG TAB ONE (11:04)
[2023-11-01 11:39] LABS: ALT (SGPT) 13 U/L (8-55); AST (SGOT) 15 U/L (5-34); Albumin 3.7 g/dL (3.5-5.0); Alkaline Phosphatase 95 U/L (40-110); Anion Gap 13 mmol/L (10-20); BUN (Urea Nitrogen) 12 mg/dL (9.8-20.1); Bilirubin, Total 0.5 mg/dL (0.2-1.2); Calc. Creatinine Clearance 0 mL/min (70-130); Calcium 9.3 mg/dL (7.8-10.44); Carbon Dioxide 24 mmol/L (22-29); Chloride 108 mmol/L (98-107); Estimated GFR 104; Globulin 2.6 g/dL (2.4-3.5); Glucose 95 mg/dL (70-105); Potassium 3.5 mmol/L (3.5-5.1); Protein, Total 6.3 g/dL (6.0-8.3); Sodium 141 mmol/L (136-145)
[2023-11-01 11:48] LABS: Troponin I Less than 0.010 ng/mL (< 0.028)
[2023-11-01 12:46] LABS: Prothrombin Time 13.6 sec (12.0-14.7)
[2023-11-01 13:41] LABS: #Basophils 0.05 10x3/uL (0.0-0.2); %Basophils 0.8 % (0.0-1.0); %Eosinophils 1.9 % (0.0-10.0); %Lymphocytes 44.6 % (21.0-51.0); %Monocytes 7.7 % (0.0-10.0); %Neutrophils 44.8 % (42.0-75.0); Hematocrit 35.1 % (36.0-47.0); Hemoglobin 11.9 g/dL (12.0-16.0); Mean Corpuscular HGB CONC 33.9 g/dL (32.0-36.0); Mean Corpuscular Volume 85.4 fL (78.0-98.0); Mean Platelet Volume 11.5 fL (7.4-10.4); Platelet Count 246 10x3/uL (130-400); RBC Distribution Width 14.7 % (11.5-14.5); Red Blood Cell (RBC) Count 4.11 mill/uL (4.20-5.40)
[2023-11-01] MEDS ORDERED: Dextrose 5% in Water 1,000 ML IV PRN (14:10)
[2023-11-01] MEDS ORDERED: Glucagon 1 MG/ML KIT IM PRN (14:10)
[2023-11-01] MEDS ORDERED: hydrALAZINE 20 MG/ML VIAL SLOW IVP PRN (14:10)
[2023-11-01] MEDS ORDERED: Dextrose 50% Abboject 50 ML SYRINGE SLOW IVP PRN (14:10)
[2023-11-01] MEDS ORDERED: Acetaminophen 650 MG Suppository PR PRN (14:10)
[2023-11-01] MEDS ORDERED: Senokot S 8.6-50 MG TAB PO PRN (14:10)
[2023-11-01] MEDS ORDERED: Ondansetron PF 4 MG/2 ML Vial IVP PRN (14:10)
[2023-11-01] MEDS ORDERED: Insulin Lispro 100 UNIT/ML 10 ML VIAL SC PRN ×2 (14:19)
[2023-11-01 16:00] VITALS: BMI 25.3
[2023-11-01] MEDS: Gabapentin 300 MG CAP PO SCH (16:43)
[2023-11-01] MEDS: Acetaminophen 325 MG TAB PO PRN (21:25)
[2023-11-02 05:10] LABS: #Basophils 0.04 10x3/uL (0.0-0.2); %Basophils 0.8 % (0.0-1.0); %Eosinophils 3.1 % (0.0-10.0); %Monocytes 7.8 % (0.0-10.0); %Neutrophils 37.1 % (42.0-75.0); Hematocrit 34.6 % (36.0-47.0); Hemoglobin 11.6 g/dL (12.0-16.0); Mean Corpuscular HGB CONC 33.5 g/dL (32.0-36.0); Mean Corpuscular Hemoglobin 29.7 pg (27.0-31.0); Mean Corpuscular Volume 88.5 fL (78.0-98.0); Mean Platelet Volume 11.4 fL (7.4-10.4); Platelet Count 234 10x3/uL (130-400); RBC Distribution Width 14.8 % (11.5-14.5); Red Blood Cell (RBC) Count 3.91 mill/uL (4.20-5.40)
[2023-11-02 05:20] LABS: Hemoglobin A1c 5.6 % (4.0-6.0)
[2023-11-02 05:44] LABS: Anion Gap 16 mmol/L (10-20); BUN (Urea Nitrogen) 17 mg/dL (9.8-20.1); Calc. Creatinine Clearance 105 mL/min (70-130); Calcium 8.9 mg/dL (7.8-10.44); Carbon Dioxide 24 mmol/L (22-29); Cardiac Risk 3.8 (Less than 4.5); Chloride 108 mmol/L (98-107); Cholesterol 117 mg/dl (< 200 Desired); Estimated GFR 103; Glucose 95 mg/dL (70-105); HDL Cholesterol 31 mg/dL (>60 Neg Risk); LDL Cholesterol, Calculated 68 mg/dL; Potassium 3.5 mmol/L (3.5-5.1); Sodium 144 mmol/L (136-145); Triglycerides 92 mg/dL (Less than 150)
[2023-11-02] MEDS ORDERED: Senokot S 8.6-50 MG TAB PO PRN (08:26)
[2023-11-02] MEDS: HYDROcodone/Acetaminophen 5/325 mg Tablet PO PRN (08:47)
[2023-11-02] MEDS: Aspirin 81 mg Enteric Coated Tablet PO SCH (08:48)
[2023-11-02] MEDS: Empagliflozin 25 MG TAB PO SCH (08:48)
[2023-11-02] MEDS: Enoxaparin 40 MG (0.4 mL) SYRINGE SC SCH (08:51)
[2023-11-02] MEDS: Lorazepam 1 MG TAB PO SCH (09:24)
[2023-11-02] MEDS: Sodium Chloride 0.9% 1,000 ML IV SCH (11:45)
[2023-11-02] MEDS: SUMAtriptan Succinate 50 MG TAB PO PRN (14:51)
[2023-11-02] MEDS: Meperidine HCl/PF 25 MG (1 mL) VIAL IM PRN (18:22)
[2023-11-02] MEDS ORDERED: Escitalopram Oxalate 20 mg Tablet PO SCH (21:00)
[2023-11-02] MEDS: Cyproheptadine 4 MG TAB PO SCH (21:41)
[2023-11-02] MEDS: Sucralfate 1 GM TAB PO SCH (21:41)
[2023-11-02] MEDS: Ondansetron ODT 4 MG TAB PO PRN (21:43)
[2023-11-02] MEDS: Venlafaxine HCl 25 MG TAB PO SCH (21:48)
[2023-11-04] MEDS: diphenhydrAMINE 50 MG/ML VIAL IVP SCH (00:45)
[2023-11-04] MEDS: Prochlorperazine 10 MG/2 ML VIAL IVP SCH (00:46)
[2023-11-04] MEDS: Sodium Chloride 0.9% 1,000 ML IV SCH (14:02)
[2023-11-04 16:39] VITALS: BP 135/71; TEMP 98.5
== END 2023-11-04 16:48 | disposition home or self-care (01) | DRG 103 ==
LOC: ERS 10:21 → 2SE 15:28 → OBSVTOIN 11-02 16:50
PROVIDERS: ADMIT Internal Medicine; ATTEND Family Medicine
DX: G43.409 Hemiplegic migraine, not intractable, without status migrainosus (principal); I50.32 Chronic diastolic (congestive) heart failure; F43.10 Post-traumatic stress disorder, unspecified; Z95.1 Presence of aortocoronary bypass graft; I48.91 Unspecified atrial fibrillation; I11.0 Hypertensive heart disease with heart failure; E78.5 Hyperlipidemia, unspecified; Z91.040 Latex allergy status; Z88.5 Allergy status to narcotic agent; Z88.0 Allergy status to penicillin; Z79.899 Other long term (current) drug therapy; Z88.2 Allergy status to sulfonamides; I25.10 Atherosclerotic heart disease of native coronary artery without angina pectoris; F41.9 Anxiety disorder, unspecified; Z90.49 Acquired absence of other specified parts of digestive tract; Z90.710 Acquired absence of both cervix and uterus; E11.42 Type 2 diabetes mellitus with diabetic polyneuropathy; M06.9 Rheumatoid arthritis, unspecified
CPT/HCPCS: 36415; 36416; 70450; 70551; 71045; 80048; 80053; 80061; 83036; 84443; 84484; 85025; 85610; 85730; 93005; 94760; J1200; J1650; J2175; J2765; J7050; Q0162

== ENCOUNTER 2023-12-17 21:18 | Emergency (ER) | payer BC, MEDICARE ==
[2023-12-18] MEDS ORDERED: Ketamine In 0.9 % NaCl 50 MG/5 ML SYRINGE ONE (02:09)
== END 2023-12-18 03:31 | disposition home or self-care (01) ==
LOC: ERS 21:18
DX: G43.909 Migraine, unspecified, not intractable, without status migrainosus (principal); I11.0 Hypertensive heart disease with heart failure; I50.9 Heart failure, unspecified; E11.9 Type 2 diabetes mellitus without complications; I48.91 Unspecified atrial fibrillation; I25.2 Old myocardial infarction; I25.10 Atherosclerotic heart disease of native coronary artery without angina pectoris; Z86.73 Personal history of transient ischemic attack (TIA), and cerebral infarction without residual deficits; Z79.4 Long term (current) use of insulin; Z95.5 Presence of coronary angioplasty implant and graft
CPT/HCPCS: 70450; 96365; J3490

== ENCOUNTER 2024-03-03 08:46 | Observation (INO) | payer BC, MEDICARE ==
[2024-03-03] MEDS ORDERED: Acetaminophen 500 MG TAB ONE (09:15)
[2024-03-03] MEDS ORDERED: Nitroglycerin 2% Ointment 1 INCH/1 GM Packet ONE (09:16)
[2024-03-03] MEDS ORDERED: fentaNYL 50 mcg/mL 1 mL Vial ONE ×3 (09:16→16:13)
[2024-03-03 09:24] LABS: #Basophils 0.03 10x3/uL (0.0-0.2); %Basophils 0.6 % (0.0-1.0); %Eosinophils 1.9 % (0.0-10.0); %Lymphocytes 54.9 % (21.0-51.0); %Monocytes 8.2 % (0.0-10.0); %Neutrophils 34.4 % (42.0-75.0); Hematocrit 37.8 % (36.0-47.0); Hemoglobin 13.1 g/dL (12.0-16.0); Mean Corpuscular HGB CONC 34.7 g/dL (32.0-36.0); Mean Corpuscular Hemoglobin 29.6 pg (27.0-31.0); Mean Corpuscular Volume 85.5 fL (78.0-98.0); Mean Platelet Volume 10.8 fL (7.4-10.4); Platelet Count 271 10x3/uL (130-400); RBC Distribution Width 12.6 % (11.5-14.5); Red Blood Cell (RBC) Count 4.42 mill/uL (4.20-5.40)
[2024-03-03 09:40] LABS: ALT (SGPT) 8 U/L (8-55); AST (SGOT) 15 U/L (5-34); Albumin 3.9 g/dL (3.5-5.0); Alkaline Phosphatase 106 U/L (40-110); Anion Gap 13 mmol/L (10-20); BUN (Urea Nitrogen) 13 mg/dL (9.8-20.1); Bilirubin, Total 0.7 mg/dL (0.2-1.2); Calc. Creatinine Clearance 0 mL/min (70-130); Calcium 9.4 mg/dL (7.8-10.44); Carbon Dioxide 23 mmol/L (22-29); Chloride 108 mmol/L (98-107); Estimated GFR 103; Globulin 2.7 g/dL (2.4-3.5); Glucose 112 mg/dL (70-105); Lipase 18 U/L (8-78); Potassium 3.4 mmol/L (3.5-5.1); Protein, Total 6.6 g/dL (6.0-8.3); Sodium 141 mmol/L (136-145)
[2024-03-03 09:46] LABS: Troponin I Less than 0.010 ng/mL (< 0.028)
[2024-03-03 09:52] LABS: Prothrombin Time 13.2 sec (12.0-14.7)
[2024-03-03 09:53] LABS: PTT 30.3 sec (22.9-36.1)
[2024-03-03 09:55] LABS: D-Dimer Test 0.6 mcg/mL (0.27-0.43)
[2024-03-03] MEDS ORDERED: Potassium Chloride 20 MEQ TAB ONE (10:01)
[2024-03-03 10:38] LABS: Magnesium 1.9 mg/dL (1.6-2.6)
[2024-03-03] MEDS ORDERED: Electrolyte Replacement Protocol 1 EACH FS PRN (12:06)
[2024-03-03] MEDS ORDERED: Electrolyte Replacement Protocol FS PRN (12:15)
[2024-03-03] MEDS ORDERED: Pantoprazole DR 40 MG TAB PO SCH (12:15)
[2024-03-03] MEDS ORDERED: Pantoprazole 40 MG VIAL ONE (13:11)
[2024-03-03] MEDS ORDERED: Magnesium 2 GM/50 ML BAG (IN WATER) ONE (13:11)
[2024-03-03 13:14] LABS: Troponin I Less than 0.010 ng/mL (< 0.028)
[2024-03-03] MEDS: Magnesium 2 GM/50 ML(in water) 2 GM in Premix 1 BAG IVPB SCH (13:35)
[2024-03-03] MEDS: Pantoprazole 40 MG VIAL IVP SCH (13:35)
[2024-03-03 15:58] LABS: Troponin I Less than 0.010 ng/mL (< 0.028)
[2024-03-03] MEDS: fentaNYL 50 mcg/mL 1 mL Vial SLOW IVP SCH ×2 (16:15→20:48)
[2024-03-03 18:47] VITALS: BMI 23.8
[2024-03-03] MEDS: Acetaminophen 325 MG TAB PO PRN (20:47)
[2024-03-03] MEDS: Ondansetron PF 4 MG/2 ML Vial IVP PRN (20:49)
[2024-03-03] MEDS ORDERED: Pantoprazole 40 MG VIAL IVP SCH (21:00)
[2024-03-04] MEDS: Nitroglycerin 0.4 MG TAB (25 Tab Bottle) SL PRN (03:16)
[2024-03-04 05:08] LABS: #Basophils 0.04 10x3/uL (0.0-0.2); %Eosinophils 2.5 % (0.0-10.0); %Lymphocytes 58.3 % (21.0-51.0); %Monocytes 8.6 % (0.0-10.0); %Neutrophils 29.6 % (42.0-75.0); Hematocrit 33.1 % (36.0-47.0); Hemoglobin 11.4 g/dL (12.0-16.0); Mean Corpuscular HGB CONC 34.4 g/dL (32.0-36.0); Mean Corpuscular Hemoglobin 30.1 pg (27.0-31.0); Mean Corpuscular Volume 87.3 fL (78.0-98.0); Mean Platelet Volume 11.1 fL (7.4-10.4); Platelet Count 237 10x3/uL (130-400); RBC Distribution Width 12.7 % (11.5-14.5); Red Blood Cell (RBC) Count 3.79 mill/uL (4.20-5.40)
[2024-03-04 05:37] LABS: Anion Gap 13 mmol/L (10-20); BUN (Urea Nitrogen) 17 mg/dL (9.8-20.1); Calc. Creatinine Clearance 86 mL/min (70-130); Calcium 8.9 mg/dL (7.8-10.44); Carbon Dioxide 21 mmol/L (22-29); Chloride 112 mmol/L (98-107); Estimated GFR 100; Glucose 93 mg/dL (70-105); Magnesium 2.2 mg/dL (1.6-2.6); Potassium 4.3 mmol/L (3.5-5.1); Sodium 142 mmol/L (136-145)
[2024-03-04] MEDS ORDERED: Pantoprazole DR 40 MG TAB PO SCH (09:00)
[2024-03-04] MEDS: fentaNYL 50 mcg/mL 1 mL Vial SLOW IVP PRN (09:40)
[2024-03-04] MEDS ORDERED: ADENOSINE 60 MG/20 ML SDV ONE (11:05)
[2024-03-04] MEDS: Pantoprazole 40 MG VIAL IVP SCH (13:50)
[2024-03-04] MEDS: Enoxaparin 40 MG (0.4 mL) SYRINGE SC SCH (13:50)
[2024-03-04] MEDS: Lidocaine 2% Viscous Solution 20 ML, Aluminum & Magnesium Hydroxide 30 ML, Donnatal Eli... SSW SCH (16:48)
[2024-03-04] MEDS: Sucralfate 1 GM TAB PO SCH (16:53)
[2024-03-05] MEDS ORDERED: Lorazepam 1 MG TAB PO PRN (11:51)
[2024-03-05] MEDS: Famotidine/PF 20 mg/2ml Vial SLOW IVP SCH (15:50)
[2024-03-05 16:20] VITALS: BP 124/64; TEMP 98.1
[2024-03-06] MEDS ORDERED: Aspirin 81 mg Enteric Coated Tablet PO SCH (09:00)
== END 2024-03-05 17:14 | disposition home or self-care (01) ==
LOC: ERS 08:46 → ERHOLD 11:36 → OBS 17:48
PROVIDERS: ADMIT Internal Medicine; ATTEND Internal Medicine
DX: R07.89 Other chest pain (principal); R10.13 Epigastric pain; R06.02 Shortness of breath; E87.6 Hypokalemia; E11.9 Type 2 diabetes mellitus without complications; I10 Essential (primary) hypertension; I25.10 Atherosclerotic heart disease of native coronary artery without angina pectoris; I48.91 Unspecified atrial fibrillation; F41.9 Anxiety disorder, unspecified; F43.10 Post-traumatic stress disorder, unspecified; G43.909 Migraine, unspecified, not intractable, without status migrainosus; G62.9 Polyneuropathy, unspecified; K92.2 Gastrointestinal hemorrhage, unspecified; Z95.1 Presence of aortocoronary bypass graft; Z95.5 Presence of coronary angioplasty implant and graft; Z85.42 Personal history of malignant neoplasm of other parts of uterus; Z86.73 Personal history of transient ischemic attack (TIA), and cerebral infarction without residual deficits; Z87.59 Personal history of other complications of pregnancy, childbirth and the puerperium; Z90.49 Acquired absence of other specified parts of digestive tract; Z88.8 Allergy status to other drugs, medicaments and biological substances; Z88.1 Allergy status to other antibiotic agents; Z88.2 Allergy status to sulfonamides; Z88.0 Allergy status to penicillin; Z88.5 Allergy status to narcotic agent; Z91.011 Allergy to milk products; Z91.010 Allergy to peanuts; Z91.041 Radiographic dye allergy status; Z91.040 Latex allergy status; Z79.84 Long term (current) use of oral hypoglycemic drugs; Z79.82 Long term (current) use of aspirin; Z79.899 Other long term (current) drug therapy
CPT/HCPCS: 36415; 36416; 71045; 74176; 78452; 80048; 80053; 83690; 83735; 83880; 84484; 85025; 85379; 85610; 85730; 93005; 93017; 94760; 96372; 96374; 96375; 96376; A9500; G0378; J0153; J1650; J2405; J2470; J3010; J3475; J3490

== ENCOUNTER 2024-12-10 22:58 | Observation (INO) | payer BC, MEDICARE ==
[~2024-12-10 22:58] MED LIST changes: +Iopamidol 370 76% 100 ML VIAL ONE; -Iopamidol-370 76% 500 ML MDV (1 ML CHARGE) ONE
[2024-12-11 00:15] LABS: #Basophils 0.04 10x3/uL (0.0-0.2); #Eosinophils 0.11 10x3/uL (0.0-0.7); #Monocytes 0.43 10x3/uL (0.11-0.59); #Neutrophils 1.83 10x3/uL (1.40-6.50); %Basophils 0.8 % (0.0-1.0); %Eosinophils 2.3 % (0.0-10.0); %Lymphocytes 49.5 % (21.0-51.0); %Monocytes 9.0 % (0.0-10.0); %Neutrophils 38.2 % (42.0-75.0); Hematocrit 28.9 % (36.0-47.0); Hemoglobin 9.5 g/dL (12.0-16.0); Mean Corpuscular Hemoglobin 27.1 pg (27.0-31.0); Mean Corpuscular Volume 82.6 fL (78.0-98.0); Platelet Count 224 10x3/uL (130-400); Red Blood Cell (RBC) Count 3.50 mill/uL (4.20-5.40); White Blood Cell (WBC) Count 4.79 10x3/uL (4.8-10.8)
[2024-12-11] MEDS ORDERED: Pantoprazole 40 MG VIAL ONE (00:17)
[2024-12-11 00:29] LABS: ALT (SGPT) 17 U/L (Less than 34); AST (SGOT) 18 U/L (11-34); Albumin 3.6 g/dL (3.1-4.5); Alkaline Phosphatase 106 U/L (40-110); Anion Gap 16 mmol/L (10-20); BUN (Urea Nitrogen) 18 mg/dL (9.8-20.1); Bilirubin, Total 0.2 mg/dL (0.3-1.2); Calc. Creatinine Clearance 0 mL/min (70-130); Calcium 8.6 mg/dL (7.8-10.44); Carbon Dioxide 22 mmol/L (22-29); Chloride 110 mmol/L (98-107); Globulin 2.3 g/dL (2.4-3.5); Glucose 104 mg/dL (70-105); Lipase 34 U/L (8-78); Potassium 3.6 mmol/L (3.5-5.1); Sodium 144 mmol/L (136-145)
[2024-12-11] MEDS ORDERED: Famotidine/PF 20 mg/2ml Vial ONE (00:51)
[2024-12-11] MEDS ORDERED: diphenhydrAMINE 50 MG/ML VIAL ONE (00:51)
[2024-12-11 00:52] LABS: INR-International Normal Ratio 1.1; PTT 32.7 sec (22.9-36.1); Prothrombin Time 14.2 sec (12.0-14.7)
[2024-12-11 06:12] LABS: #Basophils 0.03 10x3/uL (0.0-0.2); #Eosinophils Less than 0.03 10x3/uL (0.0-0.7); #Monocytes 0.06 10x3/uL (0.11-0.59); #Neutrophils 3.48 10x3/uL (1.40-6.50); %Basophils 0.7 % (0.0-1.0); %Eosinophils 0.2 % (0.0-10.0); %Lymphocytes 14.7 % (21.0-51.0); %Monocytes 1.4 % (0.0-10.0); %Neutrophils 82.8 % (42.0-75.0); Hematocrit 33.5 % (36.0-47.0); Hemoglobin 10.7 g/dL (12.0-16.0); Mean Corpuscular Hemoglobin 26.9 pg (27.0-31.0); Mean Corpuscular Volume 84.2 fL (78.0-98.0); Platelet Count 254 10x3/uL (130-400); Red Blood Cell (RBC) Count 3.98 mill/uL (4.20-5.40); White Blood Cell (WBC) Count 4.21 10x3/uL (4.8-10.8)
[2024-12-11 10:11] VITALS: BMI 24.5
[2024-12-11] MEDS ORDERED: Ondansetron PF 4 MG/2 ML Vial IVP PRN (10:22)
[2024-12-11] MEDS ORDERED: Acetaminophen 500 MG TAB PO PRN (10:22)
[2024-12-11] MEDS: Pantoprazole 40 MG VIAL IVP SCH (11:00)
[2024-12-11] MEDS: Senokot S 8.6-50 MG TAB PO SCH (11:00)
[2024-12-11] MEDS: Hydrocortisone/Pramoxine (Proctofoam HC) 10 GM BOX TOP SCH (11:13)
[2024-12-11] MEDS: Cyproheptadine 4 MG TAB PO SCH (20:30)
[2024-12-12 05:30] LABS: #Basophils 0.04 10x3/uL (0.0-0.2); #Eosinophils 0.04 10x3/uL (0.0-0.7); #Monocytes 0.42 10x3/uL (0.11-0.59); #Neutrophils 1.49 10x3/uL (1.40-6.50); %Basophils 0.8 % (0.0-1.0); %Eosinophils 0.8 % (0.0-10.0); %Lymphocytes 58.3 % (21.0-51.0); %Monocytes 8.8 % (0.0-10.0); %Neutrophils 31.1 % (42.0-75.0); Hematocrit 29.1 % (36.0-47.0); Hemoglobin 9.3 g/dL (12.0-16.0); Mean Corpuscular Hemoglobin 27.0 pg (27.0-31.0); Mean Corpuscular Volume 84.3 fL (78.0-98.0); Platelet Count 224 10x3/uL (130-400); Red Blood Cell (RBC) Count 3.45 mill/uL (4.20-5.40); White Blood Cell (WBC) Count 4.80 10x3/uL (4.8-10.8)
[2024-12-12] MEDS: Fleet Saline Enema 133 ML BOT FS SCH (06:01)
[2024-12-12 06:04] LABS: ALT (SGPT) 13 U/L (Less than 34); AST (SGOT) 16 U/L (11-34); Albumin 3.3 g/dL (3.1-4.5); Alkaline Phosphatase 90 U/L (40-110); Anion Gap 13 mmol/L (10-20); BUN (Urea Nitrogen) 9 mg/dL (9.8-20.1); Bilirubin, Total 0.4 mg/dL (0.3-1.2); Calc. Creatinine Clearance 96 mL/min (70-130); Calcium 8.4 mg/dL (7.8-10.44); Carbon Dioxide 25 mmol/L (22-29); Chloride 111 mmol/L (98-107); Globulin 2.0 g/dL (2.4-3.5); Glucose 91 mg/dL (70-105); Potassium 3.6 mmol/L (3.5-5.1); Sodium 145 mmol/L (136-145)
[2024-12-12] MEDS ORDERED: Lidocaine 1% PF 5 ML VIAL ONE (10:22)
[2024-12-12] MEDS ORDERED: PROPOFOL 20 ML ONE (10:22)
[2024-12-12 16:56] VITALS: BP 121/68; TEMP 97.8
== END 2024-12-12 16:50 | disposition home or self-care (01) ==
LOC: ERS 22:58 → T4-A 12-11 07:01
PROVIDERS: ADMIT Internal Medicine; ATTEND Internal Medicine
PROC: 0DJD8ZZ Inspection of Lower Intestinal Tract, Via Natural or Artificial Opening Endoscopic (ICD-10-PCS; principal; 2024-12-11)
DX: K64.0 First degree hemorrhoids (principal); K31.6 Fistula of stomach and duodenum; D50.9 Iron deficiency anemia, unspecified; I25.10 Atherosclerotic heart disease of native coronary artery without angina pectoris; I11.0 Hypertensive heart disease with heart failure; I50.9 Heart failure, unspecified; Z95.5 Presence of coronary angioplasty implant and graft; Z86.73 Personal history of transient ischemic attack (TIA), and cerebral infarction without residual deficits; Z87.59 Personal history of other complications of pregnancy, childbirth and the puerperium; Z95.1 Presence of aortocoronary bypass graft; Z90.49 Acquired absence of other specified parts of digestive tract; Z90.710 Acquired absence of both cervix and uterus; Z91.041 Radiographic dye allergy status; Z91.040 Latex allergy status; Z88.8 Allergy status to other drugs, medicaments and biological substances; Z88.1 Allergy status to other antibiotic agents; Z91.010 Allergy to peanuts; Z88.0 Allergy status to penicillin; Z88.2 Allergy status to sulfonamides; Z79.82 Long term (current) use of aspirin; Z79.899 Other long term (current) drug therapy
CPT/HCPCS: 36415; 74174; 80053; 83690; 85025; 85610; 85730; 86850; 86900; 86901; 96376; G0378; J1200; J1308; J2470; J2704; J2919; J3010; J7030; Q9967

== ENCOUNTER 2024-12-23 01:20 | Emergency (ER) | payer BC, MEDICARE ==
[2024-12-23] MEDS ORDERED: Famotidine/PF 20 mg/2ml Vial ONE (02:59)
[2024-12-23] MEDS ORDERED: diphenhydrAMINE 50 MG/ML VIAL ONE (02:59)
[2024-12-23 03:30] LABS: #Basophils 0.03 10x3/uL (0.0-0.2); #Eosinophils 0.12 10x3/uL (0.0-0.7); #Monocytes 0.44 10x3/uL (0.11-0.59); #Neutrophils 2.28 10x3/uL (1.40-6.50); %Basophils 0.6 % (0.0-1.0); %Eosinophils 2.3 % (0.0-10.0); %Lymphocytes 44.4 % (21.0-51.0); %Monocytes 8.5 % (0.0-10.0); %Neutrophils 44.0 % (42.0-75.0); Hematocrit 33.3 % (36.0-47.0); Hemoglobin 10.7 g/dL (12.0-16.0); Mean Corpuscular Hemoglobin 26.8 pg (27.0-31.0); Mean Corpuscular Volume 83.3 fL (78.0-98.0); Platelet Count 276 10x3/uL (130-400); Red Blood Cell (RBC) Count 4.00 mill/uL (4.20-5.40); White Blood Cell (WBC) Count 5.18 10x3/uL (4.8-10.8)
[2024-12-23 03:44] LABS: ALT (SGPT) 12 U/L (Less than 34); AST (SGOT) 29 U/L (11-34); Albumin 4.3 g/dL (3.1-4.5); Alkaline Phosphatase 116 U/L (40-110); Anion Gap 13 mmol/L (10-20); BUN (Urea Nitrogen) 24 mg/dL (9.8-20.1); Bilirubin, Total 0.2 mg/dL (0.3-1.2); Calc. Creatinine Clearance 0 mL/min (70-130); Calcium 9.5 mg/dL (7.8-10.44); Carbon Dioxide 25 mmol/L (22-29); Chloride 105 mmol/L (98-107); Globulin 3.1 g/dL (2.4-3.5); Glucose 96 mg/dL (70-105); Lipase 126 U/L (8-78); Magnesium 2.1 mg/dL (1.6-2.6); Potassium 3.6 mmol/L (3.5-5.1); Sodium 139 mmol/L (136-145)
[2024-12-23 05:30] LABS: Bacteria/HPF None Seen HPF (None Seen); CAUTI Indications for Culture Pelvic or flank pain; Glucose, Urine (Dipstick) Normal (Negative); Leukocyte 25 Leu/uL (Negative); Protein, Urine (Dipstick) Negative (Neg-Trace); RBC/HPF 0-3 HPF (0-3); Specific Gravity, Urine 1.048 (1.002-1.036); WBC/HPF 0-3 HPF (0-3)
[2024-12-23 05:32] LABS: Urine Culture Reflex No No
[2024-12-23] MEDS ORDERED: Iopamidol-370 76% 500 ML MDV (1 ML CHARGE) ONE (12:22)
== END 2024-12-23 05:40 | disposition home or self-care (01) ==
LOC: ERS 01:20
DX: K52.9 Noninfective gastroenteritis and colitis, unspecified (principal); K62.5 Hemorrhage of anus and rectum; R74.8 Abnormal levels of other serum enzymes; I25.10 Atherosclerotic heart disease of native coronary artery without angina pectoris; I11.0 Hypertensive heart disease with heart failure; I50.9 Heart failure, unspecified; I25.2 Old myocardial infarction; I48.91 Unspecified atrial fibrillation; Z86.73 Personal history of transient ischemic attack (TIA), and cerebral infarction without residual deficits; Z95.5 Presence of coronary angioplasty implant and graft
CPT/HCPCS: 36415; 74174; 80053; 81001; 82274; 83605; 83690; 83735; 85025; 86850; 86900; 86901; 96374; 96375; J1200; J1308; J2270; J2919; J3010; Q9967

== ENCOUNTER 2025-01-19 22:49 | Emergency (ER) | payer BC, MEDICARE ==
[2025-01-19 23:23] LABS: #Basophils 0.04 10x3/uL (0.0-0.2); #Eosinophils 0.09 10x3/uL (0.0-0.7); #Monocytes 0.45 10x3/uL (0.11-0.59); #Neutrophils 2.96 10x3/uL (1.40-6.50); %Basophils 0.6 % (0.0-1.0); %Eosinophils 1.3 % (0.0-10.0); %Lymphocytes 47.1 % (21.0-51.0); %Monocytes 6.7 % (0.0-10.0); %Neutrophils 44.0 % (42.0-75.0); Hematocrit 35.1 % (36.0-47.0); Hemoglobin 11.1 g/dL (12.0-16.0); Mean Corpuscular Hemoglobin 26.9 pg (27.0-31.0); Mean Corpuscular Volume 85.2 fL (78.0-98.0); Platelet Count 260 10x3/uL (130-400); Red Blood Cell (RBC) Count 4.12 mill/uL (4.20-5.40); White Blood Cell (WBC) Count 6.73 10x3/uL (4.8-10.8)
[2025-01-19 23:37] LABS: ALT (SGPT) 14 U/L (Less than 34); AST (SGOT) 30 U/L (11-34); Albumin 4.5 g/dL (3.1-4.5); Alkaline Phosphatase 106 U/L (40-110); Anion Gap 18 mmol/L (10-20); BUN (Urea Nitrogen) 20 mg/dL (9.8-20.1); Bilirubin, Total 0.3 mg/dL (0.3-1.2); Calc. Creatinine Clearance 0 mL/min (70-130); Calcium 9.7 mg/dL (7.8-10.44); Carbon Dioxide 24 mmol/L (22-29); Chloride 107 mmol/L (98-107); Globulin 3.1 g/dL (2.4-3.5); Glucose 119 mg/dL (70-105); Lipase 54 U/L (8-78); Potassium 3.6 mmol/L (3.5-5.1); Sodium 145 mmol/L (136-145)
== END 2025-01-20 05:16 | disposition short-term general hospital (02) ==
LOC: ERS 22:49
DX: I21.4 Non-ST elevation (NSTEMI) myocardial infarction (principal); Z86.73 Personal history of transient ischemic attack (TIA), and cerebral infarction without residual deficits; I48.91 Unspecified atrial fibrillation; I25.10 Atherosclerotic heart disease of native coronary artery without angina pectoris; I11.0 Hypertensive heart disease with heart failure; I50.9 Heart failure, unspecified; Z95.5 Presence of coronary angioplasty implant and graft
CPT/HCPCS: 36415; 71045; 71250; 74177; 80053; 83690; 84484; 85025; 86850; 86900; 86901; 93005; 94760; 96374; 96376; J3010